=== PATIENT | female | born 1960 | race Caucasian/White ===

== ENCOUNTER → 2016-09-22 | Outpatient (CLI) | payer OTHER ==
[~2016-09-22] MED LIST: /ASCO250TA PO; /DULO30CA OR; /ESCI10TA; /ESOM40CA; ALPRTAB4 PO; ASPI81TA63; ASPI81TA83; ATARAX; AVIANE; AVIATAB; BIOT1CAP2 PO; BUSP5TA PO; CALCCHW12 PO; COLA100C PO; FERR324T2 PO; FIBE625T15 PO; FLEXERIL OR; GLIM2TAB PO; GLUC850T PO; HYDR-3719 PO; HYDROCODONE; HYDROCODONE PO; MAGN250T PO; METF500T PO; MIRA3350 PO; MULTTAB4 PO; NEUR100C; NUCY200T PO; NUCYNTA PO; RYZOLT; SENN8.6T76 PO; SOMA350T OR; THERGRAN PO; TIZA2TA PO; TIZA4CAP PO; TOPI25TA2; TRAM50TA2; TRAZ50TA; TRAZ50TA OR; TRAZADONE PO; VICO5TAB; VITA100T PO; VITA100T5 PO; VITA500T3 PO; VITAMIN D; VITAMIN D50000 UNT; VITAMIN D50000 UNT PO; VOLT1GEL2 TD; [UNRECOGNIZED DRUG - OTHER] PO
--- NOTE | 2016-10-12 02:12 | ECWPNPC ---
PATIENT NAME: ROBINA LESTER : 1960 GENDER: FEMALE VISIT DATE: 09/22/2016 DISCHARGE DATE: 09/22/16 1451 VISIT LOCKED DATE TIME: PHYSICIAN: ELVIA PADILLA RESOURCE: ELVIA PADILLA REASON FOR APPOINTMENT 1. BACK HISTORY OF PRESENT ILLNESS HISTORY OF PRESENT ILLNESS: PAIN THE PATIENT DESCRIBES THE PAIN... FALL RISK SCREENING: SCREENING :NO FALLS IN THE PAST YEAR TODAY'S VISIT: NOTES: RATES PAIN TODAY 3/10. HAS BEEN UNDER SIGNIFICANT STRESS. HAVING PAIN UNDER BUTTUCKS WHICH IS WORSE WHEN RISING TO A STANDING POSITION. CONTINUES TO HAVE PAIN FROM MID THORACIC REGION TO SACRUM. REPORTS PAIN MEDS ARE HELPFUL AND HAS ONLY CONSTIPATION AN ADVERSE FACTOR.. CURRENT MEDICATIONS TAKING METFORMIN HCL 500 MG TABLET 1 TABLET WITH MEALS ORALLY TWICE A DAY TAKING ALPRAZOLAM 0.5 MG TABLET 1 TABLET ORALLY BID TAKING DULOXETINE HCL 60 MG CAPSULE DELAYED RELEASE PARTICLES 1 CAPSULE ORALLY TWICE A DAY TAKING BUSPIRONE HCL 5 MG TABLET 1 TABLET ORALLY THREE TIMES A DAY TAKING FERROUS SULFATE 324 MG TABLET ORALLY ONCE A DAY TAKING TIZANIDINE HCL 4 MG TABLET 1 TAB(S) ORALLY TWICE A DAY TAKING METHOCARBAMOL 750 MG TABLET 1 TABLET ORALLY BID, NOTES: 1 TAKING TRAZODONE HCL 150 MG TABLET 1 TABLET AT BEDTIME NEEDED ORALLY ONCE A DAY TAKING LACTULOSE 20 GM PACKET 1 PACKET ORALLY ONCE A DAY, NOTES: NOT YET STARTED TAKING LACTULOSE ENCEPHALOPATHY 10 GM/15ML SOLUTION 15 ML ORALLY ONCE A DAY TAKING NORCO 10-325 MG TABLET 1 ORALLY Q4H PRN MDD6 TAKING NORCO 10-325 MG TABLET 1 TABLET ORALLY Q4-6H NEEDED MAX 6 DAILY TAKING GLIMEPIRIDE 2 MG TABLET 1 TABLET WITH BREAKFAST OR THE FIRST MAIN MEAL OF THE DAY ORALLY BID NOT-TAKING LINZESS 145 MCG CAPSULES 1 CAPSUL P.O. DAILY, NOTES: NOT YET STARTED NOT-TAKING MOVANTIK 25 MG TABLET 1 TABLET IN THE MORNING ORALLY ONCE A DAY NOT-TAKING DOCUSATE SODIUM 100 MG TABLET 1 TABLET NEEDED ORALLY ONCE A DAY MEDICATION LIST REVIEWED AND RECONCILED WITH THE PATIENT PAST MEDICAL HISTORY NIDDM DEPRESSION/ANXIETY CHRONIC PAIN KIDNEY STONE ALLERGIES LYRICA: SWELLING: ALLERGY DILAUDID: ITCH: ALLERGY OXYCODONE: ITCH: ALLERGY IV DYE: HIVES: ALLERGY SOCIAL HISTORY GENERAL: TOBACCO USE ARE YOU A:NONSMOKER LEARNING BARRIERS / SPECIAL NEEDS ORIENTED TO PLAN OF CARE: PATIENT, PAIN MANAGEMENT PATIENT, ORIENTED TO PLAN OF CARE: PATIENT, PAIN MANAGEMENT PATIENT. NEW PATIENT PAIN DIARY TODAY'S VISITNOTES FROM 0-10, WHAT LEVEL IS YOUR PAIN TODAY?0 PAIN CLINIC PFS, CLERGY, PUBLIC HEALTH REFERRALS PFS REFERRAL NEEDED?NO CLERGY REFERRAL NEEDED?NO PUBLIC HEALTH REFERRAL NEEDED?NO WAS THE PROVIDER NOTIFIED OF ANY PERTINENT INFO?NO PFS REFERRAL NEEDED?NO CLERGY REFERRAL NEEDED?NO PUBLIC HEALTH REFERRAL NEEDED?NO WAS THE PROVIDER NOTIFIED OF ANY PERTINENT INFO?NO REVIEW OF SYSTEMS CONSTITUTIONAL: ANY CHANGE IN YOUR MEDICAL CONDITION? NO . CHILLS NO . FEVER NO . INFECTION: DO YOU HAVE NEW INFECTIONS? NO . DO YOU HAVE HISTORY OF MRSA? NO . MUSCULOSKELETAL: ANY NEW PATTERNS OF PAIN OR NUMBNESS? NO . GASTROENTEROLOGY: ANY NEW CHANGE IN BOWEL CONTROL? NO . GENITOURINARY: ANY NEW CHANGE IN BLADDER CONTROL? NO . IS THERE A CHANCE YOU COULD BE ? NO . HEMATOLOGY/LYMPH: DO YOU TAKE ANY BLOOD THINNERS? (FOR EXAMPLE- COUMADIN, PLAVIX, AGGRENOX, PLATEL, PRADAXA, OR XARELTO) NO . WHEN WAS YOUR LAST DOSE? DATE: TIME: . NEUROLOGY: HAVE YOU FALLEN IN THE PAST 6 MONTHS? NO . ANY NEW EXTREMITY NUMBNESS OR WEAKNESS? NO . CARDIOLOGY: DO YOU HAVE A PACEMAKER OR DEFIBRILLATOR? NO . COLD EXTREMITIES CONTINUES TO HAVE COLDNESS AND BLUE COLOR TO THE TOES. NO SKIN BREAKDOWN OR ULCERATIONS TO FEET. . RESPIRATORY: HAVE YOU BEEN SICK IN THE PAST WEEK? YES PT REPORTS SHE HAS HAD A HEAD COLD THIS PAST WEEK, DENIES FEVER. REPORTS COUGH WHICH HAS NOW RESOLVED. . FEVER NO . FLU LIKE SYMPTOMS? NO . COUGH NO . INTEGUMENTARY: DO YOU HAVE ANY RASHES OR OPEN SORES? NO . ALLERGIC/IMMUNO: ARE YOU ALLERGIC TO SHELLFISH OR IV DYE? YES . ANY NEW ALLERGIES? NO . PSYCHIATRIC: DO YOU HAVE THOUGHTS OF HURTING YOURSELF OR SOMEONE ELSE? NO . ARE YOU ABUSED, NEGLECTED, OR IN AN UNSAFE ENVIRONMENT? NO . ENDOCRINOLOGY: ARE YOU DIABETIC? YES . OTHER: DO YOU NEED ANY PRESCRIPTIONS? NO . IF YES, PLEASE LIST: ____ . ANY NEW PROBLEMS WITH YOUR MEDICATIONS? NO . WHEN DID YOU LAST EAT? ____ . WHEN DID YOU LAST DRINK? ____ . WHAT DID YOU LAST DRINK? ____ . NAME OF PERSON DRIVING YOU HOME? ____ . DO YOU HAVE ANY OTHER QUESTIONS OR CONCERNS NO . PSYCHOLOGY: STRESSORS SIGNIFICANT GRIEF WITH RECENT OF MOTHER AND FAMILY STRESS. DECLINES OFFER OF COUNSELING SERVICES AND HOSPICE FOR GRIEF ISSUES. . REVIEWED BY: PROVIDER: ELVIA MONTES DE OCA . VITAL SIGNS WT 204 LBS, HT 65 IN, BMI 33.94 INDEX, BP 127/78 MM HG, HR 65 /MIN, RR 16 /MIN, TEMP 96.0 F, OXYGEN SAT % 94, SAFE IN ENV? (Y/N) YES, NA INITIALS TL 1407, REVIEWED BY: NEGRO. EXAMINATION GENERAL EXAMINATION: PSYCHALERT , ORIENTED X 3 , SAD, TEARFUL. LUNGS:CLEAR TO AUSCULTATION BILATERALLY. HEART:HEART RATE REGULAR. MUSCULOSKELETAL:TENDERNESS ELICITED WITH PALPATION OVER MID THORACIC MUSCLES WITH MILD:, RESTRICITON OF RESPIRATORY EXCURCIOM NOTED. TRIGGER POINTS:, , ELICITED WITH PALPATION OVER LUMBAR PARAVERTEBRAL MUSCLES AND INTO THE SACRUM. TENDERNESS WITH PALPATION OVER PIRIFORMIS MUSCLES. INCREASED PAIN WITH RISING TO STANDING POSITION. RESTRICTION OF ROM IN THIS AREA. SLOW TO RISE TO STANDING POSITION. THORACIC KYPHOSIS NOTED. NEUROLOGIC EXAM:DECREASED TOUCH SENSATION IN A STOCKING GLOVE DISTRIBUTION BILATERAL LOWER EXTREMITIES. 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 LOOK UP PIRIFORMIS SYNDROME. PROCEDURE CODES FA211 ESTABILISHED PATIENT [facility] CHARGE FOLLOW UP 6-7 WEEKS ELECTRONICALLY SIGNED BY AMOL ASTORGA ON 10/10/2016 AT 10:16 AM EST DISCLAIMER : THIS IS A VISIT SUMMARY EXTRACTED FROM THE [employer] CHART. IT IS NOT A COPY OF THE [employer] PROGRESS NOTE. DOUGLAS
== END ==
LOC: M PAIN 13:40
PROVIDERS: ATTEND Nurse Practitioner Family
DX: Z09 Encounter for follow-up examination after completed treatment for conditions other than malignant neoplasm (principal); G89.29 Other chronic pain; M54.6 Pain in thoracic spine; M96.1 Postlaminectomy syndrome, not elsewhere classified; G57.00 Lesion of sciatic nerve, unspecified lower limb; E11.9 Type 2 diabetes mellitus without complications; F32.9 Major depressive disorder, single episode, unspecified; F41.9 Anxiety disorder, unspecified; Z88.8 Allergy status to other drugs, medicaments and biological substances; Z88.5 Allergy status to narcotic agent; Z91.041 Radiographic dye allergy status; Z79.84 Long term (current) use of oral hypoglycemic drugs; Z79.891 Long term (current) use of opiate analgesic; Z79.899 Other long term (current) drug therapy

== ENCOUNTER → 2016-11-03 | Outpatient (CLI) | payer OTHER ==
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
== END ==
LOC: M PAIN 10:40
PROVIDERS: ATTEND Nurse Practitioner Family
DX: Z09 Encounter for follow-up examination after completed treatment for conditions other than malignant neoplasm (principal); G89.29 Other chronic pain; M54.6 Pain in thoracic spine; M96.1 Postlaminectomy syndrome, not elsewhere classified; G57.00 Lesion of sciatic nerve, unspecified lower limb; E11.9 Type 2 diabetes mellitus without complications; F32.9 Major depressive disorder, single episode, unspecified; F41.9 Anxiety disorder, unspecified; Z88.8 Allergy status to other drugs, medicaments and biological substances; Z88.5 Allergy status to narcotic agent; Z91.041 Radiographic dye allergy status; Z79.84 Long term (current) use of oral hypoglycemic drugs; Z79.891 Long term (current) use of opiate analgesic; Z79.899 Other long term (current) drug therapy

== ENCOUNTER → 2016-12-05 | Outpatient (CLI) | payer OTHER ==
[~2016-12-05] MED LIST changes: -COLA100C PO; +COLA100C3 PO
--- NOTE | 2016-12-13 00:20 | ECWPNPC ---
PATIENT NAME: ROBINA LESTER : 1960 GENDER: FEMALE VISIT DATE: 12/05/2016 DISCHARGE DATE: 12/05/16 1043 VISIT LOCKED DATE TIME: PHYSICIAN: ELVIA PADILLA RESOURCE: ELVIA PADILLA REASON FOR APPOINTMENT 1. BACK HISTORY OF PRESENT ILLNESS HISTORY OF PRESENT ILLNESS: PAIN THE PATIENT DESCRIBES THE PAIN... FALL RISK SCREENING: SCREENING :NO FALLS IN THE PAST YEAR TODAY'S VISIT: NOTES: RATES PAIN 3 /10. DESCRIBES IT CONSTANT AND ACHING. HAD RECENT FALL FROM CHAIR WITHOUT MAJOR INCREASE IN PAIN. REPORTS HAS BEEN ABLE TO GET OUTSIDE AND BE MORE ACTIVE. DENIES ADVERSE EFFECTS FROM MEDICATIONS EXCEPT CONSTIPATION. CURRENT MEDICATIONS TAKING METFORMIN HCL 500 MG TABLET 1 TABLET WITH MEALS ORALLY TWICE A DAY TAKING ALPRAZOLAM 1 MG TABLET 1 TABLET ORALLY BID TAKING DULOXETINE HCL 60 MG CAPSULE DELAYED RELEASE PARTICLES 1 CAPSULE ORALLY TWICE A DAY TAKING BUSPIRONE HCL 5 MG TABLET 1 TABLET ORALLY THREE TIMES A DAY TAKING GLIMEPIRIDE 2 MG TABLET 1 AND 1/2 TABLET ORALLY TWICE A DAY TAKING TIZANIDINE HCL 4 MG TABLET 1 TAB(S) ORALLY TWICE A DAY TAKING DULOXETINE HCL 30 MG CAPSULE DELAYED RELEASE PARTICLES 1 CAPSULE ORALLY DAILY TDD=90 MG TAKING METHOCARBAMOL 750 MG TABLET 1 TABLET ORALLY BID, NOTES: 1 TAKING NORCO 10-325 MG TABLET 1 ORALLY Q4H PRN MDD6 TAKING TRAZODONE HCL 150 MG TABLET 1 TABLET AT BEDTIME NEEDED ORALLY ONCE A DAY NOT-TAKING FERROUS SULFATE 324 MG TABLET ORALLY ONCE A DAY NOT-TAKING LACTULOSE 20 GM PACKET 1 PACKET ORALLY ONCE A DAY, NOTES: NOT YET STARTED NOT-TAKING LACTULOSE ENCEPHALOPATHY 10 GM/15ML SOLUTION 15 ML ORALLY ONCE A DAY NOT-TAKING NORCO 10-325 MG TABLET 1 TABLET ORALLY Q4-6H NEEDED MAX 6 DAILY NOT-TAKING LINZESS 145 MCG CAPSULES 1 CAPSUL P.O. DAILY, NOTES: NOT YET STARTED NOT-TAKING MOVANTIK 25 MG TABLET 1 TABLET IN THE MORNING ORALLY ONCE A DAY NOT-TAKING DOCUSATE SODIUM 100 MG TABLET 1 TABLET NEEDED ORALLY ONCE A DAY MEDICATION LIST REVIEWED AND RECONCILED WITH THE PATIENT PAST MEDICAL HISTORY NIDDM DEPRESSION/ANXIETY CHRONIC PAIN KIDNEY STONE ALLERGIES LYRICA: SWELLING: ALLERGY DILAUDID: ITCH: ALLERGY OXYCODONE: ITCH: ALLERGY IV DYE: HIVES: ALLERGY SOCIAL HISTORY GENERAL: PAIN CLINIC PFS, CLERGY, PUBLIC HEALTH REFERRALS CLERGY REFERRAL NEEDED?NO WAS THE PROVIDER NOTIFIED OF ANY PERTINENT INFO?NO PFS REFERRAL NEEDED?NO PUBLIC HEALTH REFERRAL NEEDED?NO PATIENT: ____. REVIEW OF SYSTEMS CONSTITUTIONAL: ANY CHANGE IN YOUR MEDICAL CONDITION? NO . CHILLS NO . FEVER NO . INFECTION: DO YOU HAVE NEW INFECTIONS? NO . DO YOU HAVE HISTORY OF MRSA? NO . MUSCULOSKELETAL: ANY NEW PATTERNS OF PAIN OR NUMBNESS? NO . GASTROENTEROLOGY: ANY NEW CHANGE IN BOWEL CONTROL? NO . GENITOURINARY: ANY NEW CHANGE IN BLADDER CONTROL? NO . IS THERE A CHANCE YOU COULD BE ? NO . HEMATOLOGY/LYMPH: DO YOU TAKE ANY BLOOD THINNERS? (FOR EXAMPLE- COUMADIN, PLAVIX, AGGRENOX, PLATEL, PRADAXA, OR XARELTO) NO . WHEN WAS YOUR LAST DOSE? DATE: TIME: . NEUROLOGY: HAVE YOU FALLEN IN THE PAST 6 MONTHS? NO . ANY NEW EXTREMITY NUMBNESS OR WEAKNESS? NO . CARDIOLOGY: DO YOU HAVE A PACEMAKER OR DEFIBRILLATOR? NO . RESPIRATORY: HAVE YOU BEEN SICK IN THE PAST WEEK? NO . FEVER NO . FLU LIKE SYMPTOMS? NO . COUGH NO . INTEGUMENTARY: DO YOU HAVE ANY RASHES OR OPEN SORES? NO . ALLERGIC/IMMUNO: ARE YOU ALLERGIC TO SHELLFISH OR IV DYE? YES . ANY NEW ALLERGIES? NO . PSYCHIATRIC: DO YOU HAVE THOUGHTS OF HURTING YOURSELF OR SOMEONE ELSE? NO . ARE YOU ABUSED, NEGLECTED, OR IN AN UNSAFE ENVIRONMENT? NO . ENDOCRINOLOGY: ARE YOU DIABETIC? YES . OTHER: DO YOU NEED ANY PRESCRIPTIONS? YES . IF YES, PLEASE LIST: HYDROCODONE . ANY NEW PROBLEMS WITH YOUR MEDICATIONS? NO . WHEN DID YOU LAST EAT? ____ . WHEN DID YOU LAST DRINK? ____ . WHAT DID YOU LAST DRINK? ____ . NAME OF PERSON DRIVING YOU HOME? ____ . DO YOU HAVE ANY OTHER QUESTIONS OR CONCERNS NO . REVIEWED BY: PROVIDER: ELVIA MONTES DE OCA . VITAL SIGNS WT 214 LBS, HT 65 IN, BMI 35.61 INDEX, BP 127/72 MM HG, HR 67 /MIN, RR 16 /MIN, TEMP 97.8 F, OXYGEN SAT % 96%, NA INITIALS AW 0958, REVIEWED BY: CS. EXAMINATION GENERAL EXAMINATION: PSYCHALERT , ORIENTED X 3 , SAD. LUNGS:CLEAR TO AUSCULTATION BILATERALLY. HEART:HEART RATE REGULAR. MUSCULOSKELETAL:TENDERNESS ELICITED WITH PALPATION OVER MID THORACIC MUSCLES WITH MILD:, RESTRICITON OF RESPIRATORY EXCURCIOM NOTED. TRIGGER POINTS:, , ELICITED WITH PALPATION OVER LUMBAR PARAVERTEBRAL MUSCLES AND INTO THE SACRUM. TENDERNESS WITH PALPATION OVER PIRIFORMIS MUSCLES. INCREASED PAIN WITH RISING TO STANDING POSITION. RESTRICTION OF ROM IN THIS AREA. SLOW TO RISE TO STANDING POSITION. THORACIC KYPHOSIS NOTED. NEUROLOGIC EXAM:DECREASED TOUCH SENSATION IN A STOCKING GLOVE DISTRIBUTION BILATERAL LOWER EXTREMITIES. 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 CLINICAL NOTES: ISTOP REGISTRY REVIEWED AND DEMNOSTRATES COMPLLIANCE. BRINGS IN MEDICATIONS WHICH IS APPROPRIATE FOR WHAT WAS DISPENSED. RECENT URINE TOXICOLOGY REVIEWED. NO UNAUTHORIZED MEDICATIONS. NO ILLICIT SUBSTANCES AND PRESCRIBED MEDICATIONS WERE PRESENT. PROCEDURE CODES FA211 ESTABILISHED PATIENT [facility] CHARGE DISPOSITION & COMMUNICATION FOLLOW UP 7 WEEKS ELECTRONICALLY SIGNED BY AMOL ASTORGA ON 12/12/2016 AT 08:48 AM EDT DISCLAIMER : THIS IS A VISIT SUMMARY EXTRACTED FROM THE [employer] CHART. IT IS NOT A COPY OF THE [email or web address] PROGRESS NOTE. REGINALDD
== END | disposition home or self-care (01) ==
LOC: M PAIN 10:00
PROVIDERS: ATTEND Nurse Practitioner Family
DX: G89.29 Other chronic pain (principal); M54.6 Pain in thoracic spine; M96.1 Postlaminectomy syndrome, not elsewhere classified; G57.00 Lesion of sciatic nerve, unspecified lower limb; E11.9 Type 2 diabetes mellitus without complications; F33.9 Major depressive disorder, recurrent, unspecified; F41.9 Anxiety disorder, unspecified; Z87.442 Personal history of urinary calculi; Z79.899 Other long term (current) drug therapy; Z79.84 Long term (current) use of oral hypoglycemic drugs; Z88.5 Allergy status to narcotic agent; Z88.8 Allergy status to other drugs, medicaments and biological substances; Z91.040 Latex allergy status

== ENCOUNTER → 2017-01-23 | Outpatient (CLI) | payer OTHER ==
--- NOTE | 2017-02-12 00:06 | ECWPNPC ---
PATIENT NAME: ROBNIA LESTER : 1960 GENDER: FEMALE VISIT DATE: 01/23/2017 DISCHARGE DATE: 01/23/17 1119 VISIT LOCKED DATE TIME: PHYSICIAN: ELVIA PADILLA RESOURCE: ELVIA PADILLA REASON FOR APPOINTMENT 1. BACK HISTORY OF PRESENT ILLNESS HISTORY OF PRESENT ILLNESS: PAIN THE PATIENT DESCRIBES THE PAIN... FALL RISK SCREENING: SCREENING :NO FALLS IN THE PAST YEAR TODAY'S VISIT: NOTES: NEW ONSET OF AIN IN LEFT BUTTUCK WITH RADIATION DOWN POSTERIOR LEFT LEG UNTIL LEVEL OF KNEE. NOTES HAS PAIN WITH WALKING INITIALLY. RATES PAIN TODAYAS 4/10. DESCRIBES PAIN CONSTANT AND ACHING. . CURRENT MEDICATIONS TAKING METFORMIN HCL 500 MG TABLET 1 TABLET WITH MEALS ORALLY TWICE A DAY TAKING ALPRAZOLAM 1 MG TABLET 1 TABLET ORALLY BID TAKING DULOXETINE HCL 60 MG CAPSULE DELAYED RELEASE PARTICLES 1 CAPSULE ORALLY TWICE A DAY TAKING BUSPIRONE HCL 5 MG TABLET 1 TABLET ORALLY THREE TIMES A DAY TAKING GLIMEPIRIDE 2 MG TABLET 1 TABLET WITH BREAKFAST OR THE FIRST MAIN MEAL OF THE DAY ORALLY DAILY TAKING TIZANIDINE HCL 4 MG TABLET 1 TAB(S) ORALLY TWICE A DAY TAKING DULOXETINE HCL 30 MG CAPSULE DELAYED RELEASE PARTICLES 1 CAPSULE ORALLY DAILY TDD=90 MG TAKING METHOCARBAMOL 750 MG TABLET 1 TABLET ORALLY BID TAKING TRAZODONE HCL 150 MG TABLET 1 TABLET AT BEDTIME NEEDED ORALLY ONCE A DAY TAKING NORCO 10-325 MG TABLET 1 ORALLY Q4H PRN MDD6 NOT-TAKING FERROUS SULFATE 324 MG TABLET ORALLY ONCE A DAY NOT-TAKING LACTULOSE 20 GM PACKET 1 PACKET ORALLY ONCE A DAY, NOTES: NOT YET STARTED NOT-TAKING LACTULOSE ENCEPHALOPATHY 10 GM/15ML SOLUTION 15 ML ORALLY ONCE A DAY NOT-TAKING NORCO 10-325 MG TABLET 1 TABLET ORALLY Q4-6H NEEDED MAX 6 DAILY NOT-TAKING LINZESS 145 MCG CAPSULES 1 CAPSUL P.O. DAILY, NOTES: NOT YET STARTED NOT-TAKING MOVANTIK 25 MG TABLET 1 TABLET IN THE MORNING ORALLY ONCE A DAY NOT-TAKING DOCUSATE SODIUM 100 MG TABLET 1 TABLET NEEDED ORALLY ONCE A DAY MEDICATION LIST REVIEWED AND RECONCILED WITH THE PATIENT PAST MEDICAL HISTORY NIDDM DEPRESSION/ANXIETY CHRONIC PAIN KIDNEY STONE ALLERGIES LYRICA: SWELLING: ALLERGY DILAUDID: ITCH: ALLERGY OXYCODONE: ITCH: ALLERGY IV DYE: HIVES: ALLERGY REVIEW OF SYSTEMS CONSTITUTIONAL: ANY CHANGE IN YOUR MEDICAL CONDITION? NO . CHILLS NO . FEVER NO . INFECTION: DO YOU HAVE NEW INFECTIONS? NO . DO YOU HAVE HISTORY OF MRSA? NO . MUSCULOSKELETAL: ANY NEW PATTERNS OF PAIN OR NUMBNESS? YES, PAIN LEFT LEG IS GETTING WORSE . GASTROENTEROLOGY: ANY NEW CHANGE IN BOWEL CONTROL? NO . GENITOURINARY: ANY NEW CHANGE IN BLADDER CONTROL? NO . IS THERE A CHANCE YOU COULD BE ? NO . HEMATOLOGY/LYMPH: DO YOU TAKE ANY BLOOD THINNERS? (FOR EXAMPLE- COUMADIN, PLAVIX, AGGRENOX, PLATEL, PRADAXA, OR XARELTO) NO . WHEN WAS YOUR LAST DOSE? DATE: TIME: . NEUROLOGY: HAVE YOU FALLEN IN THE PAST 6 MONTHS? NO . ANY NEW EXTREMITY NUMBNESS OR WEAKNESS? NO . CARDIOLOGY: DO YOU HAVE A PACEMAKER OR DEFIBRILLATOR? NO . RESPIRATORY: HAVE YOU BEEN SICK IN THE PAST WEEK? NO . FEVER NO . FLU LIKE SYMPTOMS? NO . COUGH NO . INTEGUMENTARY: DO YOU HAVE ANY RASHES OR OPEN SORES? NO . ALLERGIC/IMMUNO: ARE YOU ALLERGIC TO SHELLFISH OR IV DYE? YES, IV DYE . ANY NEW ALLERGIES? NO . PSYCHIATRIC: DO YOU HAVE THOUGHTS OF HURTING YOURSELF OR SOMEONE ELSE? NO . ARE YOU ABUSED, NEGLECTED, OR IN AN UNSAFE ENVIRONMENT? NO . ENDOCRINOLOGY: ARE YOU DIABETIC? YES . OTHER: DO YOU NEED ANY PRESCRIPTIONS? NO . IF YES, PLEASE LIST: ____ . ANY NEW PROBLEMS WITH YOUR MEDICATIONS? NO . WHEN DID YOU LAST EAT? ____ . WHEN DID YOU LAST DRINK? ____ . WHAT DID YOU LAST DRINK? ____ . NAME OF PERSON DRIVING YOU HOME? ____ . DO YOU HAVE ANY OTHER QUESTIONS OR CONCERNS NO . REVIEWED BY: PROVIDER: ELVIA MONTES DE OCA . VITAL SIGNS WT 216.8 LBS, HT 65 IN, BMI 36.07 INDEX, BP 128/83 MM HG, HR 77 /MIN, RR 16 /MIN, TEMP 96.7 F, OXYGEN SAT % 94%, NA INITIALS SC 10:43, REVIEWED BY: AD. EXAMINATION GENERAL EXAMINATION: PSYCHALERT , ORIENTED X 3 , APPROPRIATE MOOD AND AFFECT , GOOD EYE CONTACT. CHEST:THORACIC KYPHOSIS PRESENT. LUNGS:CLEAR TO AUSCULTATION BILATERALLY, DECREASED AIR ENTRY AT BASES. MUSCULOSKELETAL:POINT TENDERNESS OVER LEFT PIRIFORMIS AND TIGHT BANDS NOTED OVER POSTERIOR HAMSTRINGS AND ALONG ILIOTIBIAL BAND. BALANCE POOR. CONTINUES WITH STEPPING GAIT. 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 WALK DAILY. ICE TO PAINFUL AREA FOR 10 MINUTES TEICE A DAY. CONTINUE CURRENT MEDS. CALL WHEN SCRIPTS DUE. CLINICAL NOTES: REVIEWED WITH PATIENT THE POTENTIAL RISK OF INCREASED SEDATION, RESPIRATORY SUPPRESSION AND WITH THE COMBINATION OF BENZODIAZAPINE AND OPIOD MEDICATIONS. PATIENT STATES HE UNDERSTANDS THIS RISK AND WISHES TO CONTINUE WITH THERAPY. DISCUSSED OPTION OF INTERVENTIONAL TREATMENT FOR PIRIFORMIS PAIN. SHE IS HESITANT INJECTS HAVE NEVER BEEN HELPFUL IN THE PAST, BUT WILL CONSIDER THIS, ISTOP REGISTRY REVIEWED AND DEMNOSTRATES COMPLLIANCE. BRINGS IN MEDICATIONS WHICH IS APPROPRIATE FOR WHAT WAS DISPENSED. RECENT URINE TOXICOLOGY REVIEWED. NO UNAUTHORIZED MEDICATIONS. NO ILLICIT SUBSTANCES AND PRESCRIBED MEDICATIONS WERE PRESENT. PROCEDURE CODES [id number] ESTABILISHED PATIENT [facility] DISPOSITION & COMMUNICATION FOLLOW UP 7 WEEKS (REASON: PIRIFORMIS/BACK PAIN) ELECTRONICALLY SIGNED BY AMOL ASTORGA ON 02/11/2017 AT 02:11 PM EDT DISCLAIMER : THIS IS A VISIT SUMMARY EXTRACTED FROM THE [employer] CHART. IT IS NOT A COPY OF THE [employer] PROGRESS NOTE. DOUGLAS
== END | disposition home or self-care (01) ==
LOC: M PAIN 10:00
PROVIDERS: ATTEND Nurse Practitioner Family
DX: G89.29 Other chronic pain (principal); G57.02 Lesion of sciatic nerve, left lower limb; M54.6 Pain in thoracic spine; M96.1 Postlaminectomy syndrome, not elsewhere classified; E11.9 Type 2 diabetes mellitus without complications; F41.9 Anxiety disorder, unspecified; F33.9 Major depressive disorder, recurrent, unspecified; Z87.442 Personal history of urinary calculi; Z79.899 Other long term (current) drug therapy; Z79.84 Long term (current) use of oral hypoglycemic drugs; Z88.5 Allergy status to narcotic agent; Z88.8 Allergy status to other drugs, medicaments and biological substances; Z91.041 Radiographic dye allergy status

== ENCOUNTER → 2017-03-12 | Outpatient (CLI) | payer OTHER ==
[~2017-03-12] MED LIST changes: -COLA100C3 PO; +COLA100C5 PO; -METF500T PO; +METF500T13 PO
--- NOTE | 2017-04-02 00:29 | ECWPNPC ---
PATIENT NAME: ROBINA LESTER : 1960 GENDER: FEMALE VISIT DATE: 03/12/2017 DISCHARGE DATE: 03/12/17 1159 VISIT LOCKED DATE TIME: PHYSICIAN: ELVIA PADILLA RESOURCE: ELVIA PADILLA REASON FOR APPOINTMENT 1. PIRIFORMIS/BACK PAIN HISTORY OF PRESENT ILLNESS HISTORY OF PRESENT ILLNESS: PAIN THE PATIENT DESCRIBES THE PAIN... FALL RISK SCREENING: SCREENING :NO FALLS IN THE PAST YEAR TODAY'S VISIT: NOTES: RATES PAIN TODAY 3/10. DESCRIBES PAIN CONSTANT AND ACHING. LEFT LEG SOME IMPROVEMETNT WITH EXERCISES, HAS HARD TIME FIRST GETTING STARTED BUT IMPROVES WITH MOVEMENT. . CURRENT MEDICATIONS TAKING METFORMIN HCL 500 MG TABLET 1 TABLET WITH MEALS ORALLY THREE TIMES A DAY TAKING ALPRAZOLAM 1 MG TABLET 1 TABLET ORALLY BID TAKING DULOXETINE HCL 60 MG CAPSULE DELAYED RELEASE PARTICLES 1 CAPSULE ORALLY TWICE A DAY TAKING BUSPIRONE HCL 5 MG TABLET 1 TABLET ORALLY THREE TIMES A DAY TAKING TIZANIDINE HCL 4 MG TABLET 1 TAB(S) ORALLY TWICE A DAY TAKING DULOXETINE HCL 30 MG CAPSULE DELAYED RELEASE PARTICLES 1 CAPSULE ORALLY DAILY TDD=90 MG TAKING METHOCARBAMOL 750 MG TABLET 1 TABLET ORALLY BID TAKING TRAZODONE HCL 150 MG TABLET 1 TABLET AT BEDTIME NEEDED ORALLY ONCE A DAY TAKING NORCO 10-325 MG TABLET 1 ORALLY Q4H PRN MDD6 TAKING MULTIVITAMINS - TABLET 1 TABLET ORALLY ONCE A DAY TAKING MAGNESIUM 250 MG TABLET 1 TABLET WITH A MEAL ORALLY ONCE A DAY NOT-TAKING DOCUSATE SODIUM 100 MG TABLET 1 TABLET NEEDED ORALLY ONCE A DAY DISCONTINUED GLIMEPIRIDE 2 MG TABLET 1 TABLET WITH BREAKFAST OR THE FIRST MAIN MEAL OF THE DAY ORALLY DAILY DISCONTINUED FERROUS SULFATE 324 MG TABLET ORALLY ONCE A DAY DISCONTINUED LACTULOSE 20 GM PACKET 1 PACKET ORALLY ONCE A DAY, NOTES: NOT YET STARTED DISCONTINUED LACTULOSE ENCEPHALOPATHY 10 GM/15ML SOLUTION 15 ML ORALLY ONCE A DAY DISCONTINUED NORCO 10-325 MG TABLET 1 TABLET ORALLY Q4-6H NEEDED MAX 6 DAILY DISCONTINUED LINZESS 145 MCG CAPSULES 1 CAPSUL P.O. DAILY, NOTES: NOT YET STARTED DISCONTINUED MOVANTIK 25 MG TABLET 1 TABLET IN THE MORNING ORALLY ONCE A DAY MEDICATION LIST REVIEWED AND RECONCILED WITH THE PATIENT PAST MEDICAL HISTORY NIDDM DEPRESSION/ANXIETY CHRONIC PAIN KIDNEY STONE ALLERGIES LYRICA: SWELLING: ALLERGY DILAUDID: ITCH: ALLERGY OXYCODONE: ITCH: ALLERGY IV DYE: HIVES: ALLERGY REVIEW OF SYSTEMS REVIEWED BY: PROVIDER: ELVIA MONTES DE OCA . CONSTITUTIONAL: ANY CHANGE IN YOUR MEDICAL CONDITION? NO . CHILLS NO . FEVER NO . INFECTION: DO YOU HAVE NEW INFECTIONS? NO . DO YOU HAVE HISTORY OF MRSA? NO . MUSCULOSKELETAL: ANY NEW PATTERNS OF PAIN OR NUMBNESS? NO . GASTROENTEROLOGY: ANY NEW CHANGE IN BOWEL CONTROL? NO . GENITOURINARY: ANY NEW CHANGE IN BLADDER CONTROL? NO . IS THERE A CHANCE YOU COULD BE ? NO . HEMATOLOGY/LYMPH: DO YOU TAKE ANY BLOOD THINNERS? (FOR EXAMPLE- COUMADIN, PLAVIX, AGGRENOX, PLATEL, PRADAXA, OR XARELTO) NO . WHEN WAS YOUR LAST DOSE? DATE: TIME: . NEUROLOGY: HAVE YOU FALLEN IN THE PAST 6 MONTHS? NO . ANY NEW EXTREMITY NUMBNESS OR WEAKNESS? NO . CARDIOLOGY: DO YOU HAVE A PACEMAKER OR DEFIBRILLATOR? NO . RESPIRATORY: HAVE YOU BEEN SICK IN THE PAST WEEK? NO . FEVER NO . FLU LIKE SYMPTOMS? NO . COUGH NO . INTEGUMENTARY: DO YOU HAVE ANY RASHES OR OPEN SORES? NO . ALLERGIC/IMMUNO: ARE YOU ALLERGIC TO SHELLFISH OR IV DYE? YES, IV DYE . ANY NEW ALLERGIES? NO . PSYCHIATRIC: DO YOU HAVE THOUGHTS OF HURTING YOURSELF OR SOMEONE ELSE? NO . ARE YOU ABUSED, NEGLECTED, OR IN AN UNSAFE ENVIRONMENT? NO . ENDOCRINOLOGY: ARE YOU DIABETIC? YES . OTHER: DO YOU NEED ANY PRESCRIPTIONS? NOT SURE . IF YES, PLEASE LIST: ____ . ANY NEW PROBLEMS WITH YOUR MEDICATIONS? NO . WHEN DID YOU LAST EAT? ____ . WHEN DID YOU LAST DRINK? ____ . WHAT DID YOU LAST DRINK? ____ . NAME OF PERSON DRIVING YOU HOME? ____ . DO YOU HAVE ANY OTHER QUESTIONS OR CONCERNS NO . VITAL SIGNS WT 209. LBS, HT 65 IN, BMI 34.78 INDEX, BP 142/82 MM HG, HR 81 /MIN, RR 16 /MIN, TEMP 97.6 F, OXYGEN SAT % 99%, REVIEWED BY: CROW 1130. EXAMINATION GENERAL EXAMINATION: PSYCHALERT , ORIENTED X 3 , APPROPRIATE MOOD AND AFFECT , GOOD EYE CONTACT. CHEST:THORACIC KYPHOSIS PRESENT. LUNGS:CLEAR TO AUSCULTATION BILATERALLY, DECREASED AIR ENTRY AT BASES. MUSCULOSKELETAL:POINT TENDERNESS OVER LEFT PIRIFORMIS AND TIGHT BANDS NOTED OVER POSTERIOR HAMSTRINGS AND ALONG ILIOTIBIAL BAND. BALANCE POOR. CONTINUES WITH STEPPING GAIT. ASSESSMENTS PIRIFORMIS SYNDROME OF LEFT SIDE - G57.02 (PRIMARY) THORACIC BACK PAIN - M54.6 LUMBAR POST-LAMINECTOMY SYNDROME - M96.1 CHRONIC PRESCRIPTION OPIATE USE - Z79.899 TREATMENT PIRIFORMIS SYNDROME OF LEFT SIDE CLINICAL NOTES: CONTINUE EXERCISES AND STRETCHES. , ISTOP REGISTRY REVIEWED AND DEMNOSTRATES COMPLLIANCE. BRINGS IN MEDICATIONS WHICH IS APPROPRIATE FOR WHAT WAS DISPENSED. RECENT URINE TOXICOLOGY REVIEWED. NO UNAUTHORIZED MEDICATIONS. NO ILLICIT SUBSTANCES AND PRESCRIBED MEDICATIONS WERE PRESENT. PROCEDURE CODES FA211 ESTABILISHED PATIENT [facility] CHARGE DISPOSITION & COMMUNICATION FOLLOW UP 3 MONTHS (REASON: BACK PAIN) ELECTRONICALLY SIGNED BY AMOL ASTORGA ON 04/01/2017 AT 12:53 PM EDT DISCLAIMER : THIS IS A VISIT SUMMARY EXTRACTED FROM THE [employer] CHART. IT IS NOT A COPY OF THE [employer] PROGRESS NOTE. DOUGLAS
== END | disposition home or self-care (01) ==
LOC: M PAIN 10:20
PROVIDERS: ATTEND Nurse Practitioner Family
DX: G89.29 Other chronic pain (principal); G57.02 Lesion of sciatic nerve, left lower limb; M54.6 Pain in thoracic spine; M96.1 Postlaminectomy syndrome, not elsewhere classified; E11.9 Type 2 diabetes mellitus without complications; F41.9 Anxiety disorder, unspecified; F33.9 Major depressive disorder, recurrent, unspecified; Z87.442 Personal history of urinary calculi; Z79.899 Other long term (current) drug therapy; Z79.84 Long term (current) use of oral hypoglycemic drugs; Z88.5 Allergy status to narcotic agent; Z88.8 Allergy status to other drugs, medicaments and biological substances; Z91.041 Radiographic dye allergy status

== ENCOUNTER → 2017-06-05 | Outpatient (CLI) | payer OTHER ==
--- NOTE | 2017-06-28 01:47 | ECWPNPC ---
PATIENT NAME: ROBINA LESTER : 1960 GENDER: FEMALE VISIT DATE: 06/05/2017 DISCHARGE DATE: 06/05/17 1034 VISIT LOCKED DATE TIME: PHYSICIAN: ELVIA PADILLA RESOURCE: ELVIA PADILLA REASON FOR APPOINTMENT 1. BACK HISTORY OF PRESENT ILLNESS HISTORY OF PRESENT ILLNESS: PAIN THE PATIENT DESCRIBES THE PAIN... FALL RISK SCREENING: SCREENING :NO FALLS IN THE PAST YEAR TODAY'S VISIT: NOTES: RATES PAIN TODAY 11/03. HAS BEEN ABLE TO BE ACTIVE IN THE GARDEN. CONTINUES TO HAVE NUMBNESS IN BOTH FEET.. CURRENT MEDICATIONS UNKNOWN METFORMIN HCL 500 MG TABLET 1 TABLET WITH MEALS ORALLY THREE TIMES A DAY UNKNOWN ALPRAZOLAM 1 MG TABLET 1 TABLET ORALLY BID UNKNOWN DULOXETINE HCL 60 MG CAPSULE DELAYED RELEASE PARTICLES 1 CAPSULE ORALLY TWICE A DAY, NOTES: TOTAL OF 90MG UNKNOWN BUSPIRONE HCL 5 MG TABLET 1 TABLET ORALLY THREE TIMES A DAY UNKNOWN MULTIVITAMINS - TABLET 1 TABLET ORALLY ONCE A DAY UNKNOWN MAGNESIUM 250 MG TABLET 1 TABLET WITH A MEAL ORALLY ONCE A DAY UNKNOWN TIZANIDINE HCL 4 MG TABLET 1 TAB(S) ORALLY TWICE A DAY UNKNOWN DULOXETINE HCL 30 MG CAPSULE DELAYED RELEASE PARTICLES 1 CAPSULE ORALLY DAILY TDD=90 MG UNKNOWN METHOCARBAMOL 750 MG TABLET 1 TABLET ORALLY BID UNKNOWN NORCO 10-325 MG TABLET 1 ORALLY Q4H PRN MDD6 UNKNOWN TRAZODONE HCL 150 MG TABLET 1 TABLET AT BEDTIME NEEDED ORALLY ONCE A DAY UNKNOWN DOCUSATE SODIUM 100 MG TABLET 1 TABLET NEEDED ORALLY ONCE A DAY MEDICATION LIST REVIEWED AND RECONCILED WITH THE PATIENT PAST MEDICAL HISTORY NIDDM DEPRESSION/ANXIETY CHRONIC PAIN KIDNEY STONE ALLERGIES LYRICA: SWELLING: ALLERGY DILAUDID: ITCH: ALLERGY OXYCODONE: ITCH: ALLERGY IV DYE: HIVES: ALLERGY REVIEW OF SYSTEMS REVIEWED BY: PROVIDER: ELVIA MONTES DE OCA . CONSTITUTIONAL: ANY CHANGE IN YOUR MEDICAL CONDITION? NO . CHILLS NO . FEVER NO . INFECTION: DO YOU HAVE NEW INFECTIONS? NO . DO YOU HAVE HISTORY OF MRSA? NO . MUSCULOSKELETAL: ANY NEW PATTERNS OF PAIN OR NUMBNESS? NO . GASTROENTEROLOGY: ANY NEW CHANGE IN BOWEL CONTROL? STILL CONSTIPATED . GENITOURINARY: ANY NEW CHANGE IN BLADDER CONTROL? NO . IS THERE A CHANCE YOU COULD BE ? NO . HEMATOLOGY/LYMPH: DO YOU TAKE ANY BLOOD THINNERS? (FOR EXAMPLE- COUMADIN, PLAVIX, AGGRENOX, PLATEL, PRADAXA, OR XARELTO) NO . WHEN WAS YOUR LAST DOSE? DATE: TIME: . NEUROLOGY: HAVE YOU FALLEN IN THE PAST 6 MONTHS? NO . ANY NEW EXTREMITY NUMBNESS OR WEAKNESS? NO . CARDIOLOGY: DO YOU HAVE A PACEMAKER OR DEFIBRILLATOR? NO . RESPIRATORY: HAVE YOU BEEN SICK IN THE PAST WEEK? NO . FEVER NO . FLU LIKE SYMPTOMS? NO . COUGH NO . INTEGUMENTARY: DO YOU HAVE ANY RASHES OR OPEN SORES? NO . ALLERGIC/IMMUNO: ARE YOU ALLERGIC TO SHELLFISH OR IV DYE? YES . ANY NEW ALLERGIES? NO . PSYCHIATRIC: DO YOU HAVE THOUGHTS OF HURTING YOURSELF OR SOMEONE ELSE? NO . ARE YOU ABUSED, NEGLECTED, OR IN AN UNSAFE ENVIRONMENT? NO . ENDOCRINOLOGY: ARE YOU DIABETIC? YES . OTHER: DO YOU NEED ANY PRESCRIPTIONS? YES . IF YES, PLEASE LIST: HYDROCODONE . ANY NEW PROBLEMS WITH YOUR MEDICATIONS? NO . WHEN DID YOU LAST EAT? ____ . WHEN DID YOU LAST DRINK? ____ . WHAT DID YOU LAST DRINK? ____ . NAME OF PERSON DRIVING YOU HOME? ____ . DO YOU HAVE ANY OTHER QUESTIONS OR CONCERNS NO . VITAL SIGNS WT 211 LBS, HT 65 IN, BMI 35.11 INDEX, BP 121/82 MM HG, HR 76 /MIN, RR 16 /MIN, TEMP 97.4 F, OXYGEN SAT % 96%, NA INITIALS SC 10:14. EXAMINATION GENERAL EXAMINATION: PSYCHALERT , ORIENTED X 3 , APPROPRIATE MOOD AND AFFECT , GOOD EYE CONTACT. CHEST:THORACIC KYPHOSIS PRESENT. LUNGS:CLEAR TO AUSCULTATION BILATERALLY, DECREASED AIR ENTRY AT BASES. MUSCULOSKELETAL:POINT TENDERNESS OVER LEFT PIRIFORMIS AND TIGHT BANDS NOTED OVER POSTERIOR HAMSTRINGS AND ALONG ILIOTIBIAL BAND. BALANCE POOR. CONTINUES WITH STEPPING GAIT. 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 CLINICAL NOTES: ISTOP REGISTRY REVIEWED AND DEMNOSTRATES COMPLLIANCE. (REF # [id number]) BRINGS IN MEDICATIONS WHICH IS APPROPRIATE FOR WHAT WAS DISPENSED. RECENT URINE TOXICOLOGY REVIEWED. NO UNAUTHORIZED MEDICATIONS. NO ILLICIT SUBSTANCES AND PRESCRIBED MEDICATIONS WERE PRESENT. PROCEDURE CODES FA211 ESTABILISHED PATIENT [facility] CHARGE DISPOSITION & COMMUNICATION FOLLOW UP 3 MONTHS (REASON: BACK PAIN) ELECTRONICALLY SIGNED BY AMOL ASTORGA ON 06/27/2017 AT 08:22 AM EDT DISCLAIMER : THIS IS A VISIT SUMMARY EXTRACTED FROM THE [employer] CHART. IT IS NOT A COPY OF THE [employer] PROGRESS NOTE. DOUGLAS
== END ==
LOC: M PAIN 10:15
PROVIDERS: ATTEND Nurse Practitioner Family
DX: G89.29 Other chronic pain (principal); G57.02 Lesion of sciatic nerve, left lower limb; M54.6 Pain in thoracic spine; M96.1 Postlaminectomy syndrome, not elsewhere classified; E11.9 Type 2 diabetes mellitus without complications; F32.9 Major depressive disorder, single episode, unspecified; F41.9 Anxiety disorder, unspecified; Z88.5 Allergy status to narcotic agent; Z91.041 Radiographic dye allergy status; Z88.8 Allergy status to other drugs, medicaments and biological substances; Z79.84 Long term (current) use of oral hypoglycemic drugs; Z79.891 Long term (current) use of opiate analgesic; Z79.899 Other long term (current) drug therapy

== ENCOUNTER → 2017-09-05 | Outpatient (CLI) | payer OTHER | LOC: M PAIN 10:15 | DX: G57.02 Lesion of sciatic nerve, left lower limb (principal); M96.1 Postlaminectomy syndrome, not elsewhere classified; M54.6 Pain in thoracic spine; E11.9 Type 2 diabetes mellitus without complications; F41.9 Anxiety disorder, unspecified; F32.9 Major depressive disorder, single episode, unspecified; Z88.5 Allergy status to narcotic agent; Z88.8 Allergy status to other drugs, medicaments and biological substances; Z91.041 Radiographic dye allergy status; Z79.891 Long term (current) use of opiate analgesic; Z79.84 Long term (current) use of oral hypoglycemic drugs; Z79.899 Other long term (current) drug therapy | CPT/HCPCS: G0463 ==

== ENCOUNTER → 2017-11-30 | Outpatient (CLI) | payer OTHER | LOC: M PAIN 10:45 | DX: G57.02 Lesion of sciatic nerve, left lower limb (principal); M54.6 Pain in thoracic spine; M96.1 Postlaminectomy syndrome, not elsewhere classified; K59.09 Other constipation; E11.9 Type 2 diabetes mellitus without complications; F32.9 Major depressive disorder, single episode, unspecified; F41.9 Anxiety disorder, unspecified; Z79.84 Long term (current) use of oral hypoglycemic drugs; Z79.891 Long term (current) use of opiate analgesic; Z79.899 Other long term (current) drug therapy; Z88.5 Allergy status to narcotic agent; Z88.8 Allergy status to other drugs, medicaments and biological substances; Z91.041 Radiographic dye allergy status | CPT/HCPCS: G0463 ==

== ENCOUNTER → 2018-02-05 | Outpatient (CLI) | payer OTHER | LOC: M PAIN 10:30 | DX: M54.6 Pain in thoracic spine (principal); M96.1 Postlaminectomy syndrome, not elsewhere classified; K59.09 Other constipation; E11.9 Type 2 diabetes mellitus without complications; F32.9 Major depressive disorder, single episode, unspecified; F41.9 Anxiety disorder, unspecified; Z79.84 Long term (current) use of oral hypoglycemic drugs; Z79.891 Long term (current) use of opiate analgesic; Z79.899 Other long term (current) drug therapy; Z88.8 Allergy status to other drugs, medicaments and biological substances; Z91.041 Radiographic dye allergy status | CPT/HCPCS: G0463 ==

== ENCOUNTER → 2018-05-20 | Outpatient (CLI) | payer OTHER | LOC: M PAIN 10:45 | DX: M54.6 Pain in thoracic spine (principal); M96.1 Postlaminectomy syndrome, not elsewhere classified; E11.9 Type 2 diabetes mellitus without complications; F32.9 Major depressive disorder, single episode, unspecified; F41.9 Anxiety disorder, unspecified; Z79.84 Long term (current) use of oral hypoglycemic drugs; Z79.891 Long term (current) use of opiate analgesic; Z79.899 Other long term (current) drug therapy; Z88.8 Allergy status to other drugs, medicaments and biological substances; Z91.041 Radiographic dye allergy status; Z98.84 Bariatric surgery status | CPT/HCPCS: G0463 ==

== ENCOUNTER → 2018-09-16 | Outpatient (CLI) | payer OTHER ==
--- NOTE | 2018-09-27 01:46 | ECWPNPC ---
PATIENT NAME: ROBINA LESTER : 1960 GENDER: FEMALE VISIT DATE: 09/16/2018 DISCHARGE DATE: 09/16/18 1121 VISIT LOCKED DATE TIME: PHYSICIAN: BRIAN WOODS RESOURCE: BRIAN WOODS REASON FOR APPOINTMENT 1. SW PT,BACK MED MAN HISTORY OF PRESENT ILLNESS HISTORY OF PRESENT ILLNESS: HERE FOR ROUTINE F/U AND MEDICINE MANAGEMENT OF CHRONIC GENERALIZED BACK PAIN.HISTORY OF 3 BACK SURGERIES LAST ONE AROUND .REPORTED DECREASE IN RADICULAR PAIN SINCE SURGERY BUT HAS PERSISTENT LOW BACK SINCE.PAIN HAS BEEN AGGREVATED OVER THE PAST FEW MONTHS.RATING PAIN VAS 7/10. PAIN THE PATIENT DESCRIBES THE PAIN... FALL RISK SCREENING: SCREENING :NO FALLS IN THE PAST YEAR CURRENT MEDICATIONS TAKING PRAVASTATIN SODIUM 10 MG TABLET 1 TABLET ORALLY ONCE A DAY TAKING PREMARIN 0.625 MG TABLET 1 TABLET ORALLY DAILY TAKING METFORMIN HCL 500 MG TABLET 1 TABLET WITH MEALS ORALLY THREE TIMES A DAY TAKING DULOXETINE HCL 60 MG CAPSULE DELAYED RELEASE PARTICLES 1 CAPSULE ORALLY TWICE A DAY TAKING MULTIVITAMINS - TABLET 1 TABLET ORALLY ONCE A DAY TAKING TRAZODONE HCL 150 MG TABLET 2 TABLET AT BEDTIME NEEDED ORALLY ONCE A DAY TAKING TIZANIDINE HCL 4 MG TABLET 1 TAB(S) ORALLY TWICE A DAY TAKING METHOCARBAMOL 750 MG TABLET 1 TABLET ORALLY BID TAKING MOVANTIK 25 MG TABLET 1 TABLET IN THE MORNING ORALLY ONCE A DAY TAKING NORCO 10-325 MG TABLET 1 ORALLY Q4-6H PRN MDD5 - SLOW WEAN OF MED TAKING ALPRAZOLAM 1 MG TABLET 1 TABLET ORALLY BID, NOTES: 09-16-18 UNKNOWN CURCUMIN 95 500 MG CAPSULE ORALLY UNKNOWN CINNAMON 500 MG CAPSULE 2 CAPS ORALLY BID UNKNOWN DOCUSATE SODIUM 100 MG TABLET 1 TABLET NEEDED ORALLY ONCE A DAY MEDICATION LIST REVIEWED AND RECONCILED WITH THE PATIENT PAST MEDICAL HISTORY NIDDM DEPRESSION/ANXIETY CHRONIC PAIN KIDNEY STONE ALLERGIES LYRICA: SWELLING: ALLERGY DILAUDID: ITCH: ALLERGY OXYCODONE: ITCH: ALLERGY IV DYE: HIVES: ALLERGY SURGICAL HISTORY TONSILECTOMY CTR R/L ULNAR NERVE TRANSPOSITION 3 BACK SURGERY GASTRIC BYPASS REMOVAL OF EXCESS SKIN FROM ABDOMEN CHOLECYSTECTOMY HOSPITALIZATION/MAJOR DIAGNOSTIC PROCEDURE KIDNEY STONES PANCREATITIS SURGER REVIEW OF SYSTEMS REVIEWED BY: PROVIDER: BRIAN MONTES DE OCA . CONSTITUTIONAL: ANY CHANGE IN YOUR MEDICAL CONDITION? NO . CHILLS NO . FEVER NO . INFECTION: DO YOU HAVE NEW INFECTIONS? NO . DO YOU HAVE HISTORY OF MRSA? NO . MUSCULOSKELETAL: ANY NEW PATTERNS OF PAIN OR NUMBNESS? NO . GASTROENTEROLOGY: ANY NEW CHANGE IN BOWEL CONTROL? NO . GENITOURINARY: ANY NEW CHANGE IN BLADDER CONTROL? NO . IS THERE A CHANCE YOU COULD BE ? NO . HEMATOLOGY/LYMPH: DO YOU TAKE ANY BLOOD THINNERS? (FOR EXAMPLE- COUMADIN, PLAVIX, AGGRENOX, PLATEL, PRADAXA, OR XARELTO) NO . WHEN WAS YOUR LAST DOSE? DATE: TIME: . NEUROLOGY: HAVE YOU FALLEN IN THE PAST 12 MONTHS? NO . ANY NEW EXTREMITY NUMBNESS OR WEAKNESS? NO . CARDIOLOGY: DO YOU HAVE A PACEMAKER OR DEFIBRILLATOR? NO . RESPIRATORY: HAVE YOU BEEN SICK IN THE PAST WEEK? NO . FEVER NO . FLU LIKE SYMPTOMS? NO . COUGH NO . INTEGUMENTARY: DO YOU HAVE ANY RASHES OR OPEN SORES? NO . ALLERGIC/IMMUNO: ARE YOU ALLERGIC TO IV DYE? NO . ANY NEW ALLERGIES? NO . PSYCHIATRIC: DO YOU HAVE THOUGHTS OF HURTING YOURSELF OR SOMEONE ELSE? NO . ARE YOU ABUSED, NEGLECTED, OR IN AN UNSAFE ENVIRONMENT? NO . ENDOCRINOLOGY: ARE YOU DIABETIC? NO . OTHER: DO YOU NEED ANY PRESCRIPTIONS? MOVANTIK TIZANIDINE AND TRAZADONE . IF YES, PLEASE LIST: ____ . ANY NEW PROBLEMS WITH YOUR MEDICATIONS? NO . WHEN DID YOU LAST EAT? ____ . WHEN DID YOU LAST DRINK? ____ . WHAT DID YOU LAST DRINK? ____ . NAME OF PERSON DRIVING YOU HOME? ____ . DO YOU HAVE ANY OTHER QUESTIONS OR CONCERNS NO . VITAL SIGNS WT 205.6 LBS, HT 65 IN, BMI 34.21 INDEX, BP 136/78 MM HG, HR 76 /MIN, RR 16 /MIN, TEMP 97.0 F, OXYGEN SAT % 98%, NA INITIALS SC 10:31. EXAMINATION GENERAL EXAMINATION: PSYCHALERT , ORIENTED X 3 , APPROPRIATE MOOD AND AFFECT , GOOD EYE CONTACT. CHEST:THORACIC KYPHOSIS PRESENT. LUNGS:CLEAR TO AUSCULTATION BILATERALLY, DECREASED AIR ENTRY AT BASES. MUSCULOSKELETAL:POINT TENDERNESS OVER LEFT PIRIFORMIS AND TIGHT BANDS NOTED OVER POSTERIOR HAMSTRINGS AND ALONG ILIOTIBIAL BAND. BALANCE POOR. CONTINUES WITH STEPPING GAIT. ASSESSMENTS LUMBAR POST-LAMINECTOMY SYNDROME - M96.1 (PRIMARY) CHRONIC PRESCRIPTION OPIATE USE - Z79.899 TREATMENT LUMBAR POST-LAMINECTOMY SYNDROME REFILL TRAZODONE HCL TABLET, 150 MG, 2 TABLET AT BEDTIME NEEDED, ORALLY, ONCE A DAY, 30 DAY(S), 60 TABLET, REFILLS 5 REFILL TIZANIDINE HCL TABLET, 4 MG, 1 TAB(S), ORALLY, TWICE A DAY, 30 DAY(S), 60 TABLET, REFILLS 5 REFILL METHOCARBAMOL TABLET, 750 MG, 1 TABLET, ORALLY, BID, 30 DAYS, 60, REFILLS 5 REFILL MOVANTIK TABLET, 25 MG, 1 TABLET IN THE MORNING, ORALLY, ONCE A DAY, 30 DAY(S), 30, REFILLS 5 REFILL NORCO TABLET, 10-325 MG, 1, ORALLY, Q4-6H PRN MDD5 - SLOW WEAN OF MED, 30 DAY(S), 150, REFILLS 0 NOTES: ISTOP REGISTRY REVIEWED AND DEMONSTRATES COMPLLIANCE. (REF #[id number] ) BRINGS IN MEDICATIONS WHICH IS APPROPRIATE FOR WHAT WAS DISPENSED. RECENT URINE TOXICOLOGY REVIEWED. NO UNAUTHORIZED MEDICATIONS. NO ILLICIT SUBSTANCES AND PRESCRIBED MEDICATIONS WERE PRESENT. URINE TOX TODAY, RISKS AND BENEFITS OF NARCOTIC/OPIOD MEDICATIONS WERE REVIEWED WITH PATIENT - THIS INCLUDES BUT IS NOT LIMITED TO RISK OF DEPENDANCE/DEVELOPMENT OF ADDICTION, MOOD DISTURBANCE AND DEPRESSION, OSTEOPOROSIS, HORMONAL AND LABIDAL CHANGES, RESPIRATORY DEPRESSION AND . PATIENT IS ADVISED NOT TO DRIVE OR DRINK ALCOHOL WHILE ON THESE MEDICATIONS. PROCEDURE CODES FA211 ESTABILISHED PATIENT [facility] CHARGE DISPOSITION & COMMUNICATION FOLLOW UP 3 MONTHS ELECTRONICALLY SIGNED BY TAVON BOO ON 09/26/2018 AT 05:24 PM EST DISCLAIMER : THIS IS A VISIT SUMMARY EXTRACTED FROM THE [employer] CHART. IT IS NOT A COPY OF THE [employer] PROGRESS NOTE. MTDD
== END ==
LOC: M PAIN 10:00
PROVIDERS: ATTEND Nurse Practitioner Family
DX: M96.1 Postlaminectomy syndrome, not elsewhere classified (principal); E11.9 Type 2 diabetes mellitus without complications; F32.9 Major depressive disorder, single episode, unspecified; F41.9 Anxiety disorder, unspecified; Z79.84 Long term (current) use of oral hypoglycemic drugs; Z79.891 Long term (current) use of opiate analgesic; Z79.899 Other long term (current) drug therapy; Z88.5 Allergy status to narcotic agent; Z88.8 Allergy status to other drugs, medicaments and biological substances; Z91.041 Radiographic dye allergy status; Z98.84 Bariatric surgery status

== ENCOUNTER 2018-11-29 02:49 | Inpatient (IN) | payer OTHER ==
[~2018-11-29] VITALS: Ht 167.6 cm; Wt 97.4 kg
[~2018-11-29 02:49] MED LIST changes: -/DULO30CA OR; -/ESCI10TA; -/ESOM40CA; +CYMB1CAP5 OR; +LEXA1TAB; +NEXI1CAP3; -NUCY200T PO; +TAPE200T PO
[2018-11-29 04:30] VITALS: BP 146/92
[2018-11-29] MEDS ORDERED: ONDANSETRON 4MG/2ML VIAL (J2405) IV PRN (05:00)
[2018-11-29] MEDS ORDERED: MORPHINE 4 MG/ML 1ML VIAL/SYRINGE (J2270) IV PRN ×3 (05:00→11:45)
--- NOTE | 2018-11-29 05:05 | HPEPDOC ---
[facility] Medical History & Physical Date of Admission Nov 29, 2018 Other Provider Karmen Cavazos Attending Physician: CAROLINA REED MD History and Physical CHIEF COMPLAINT: Flank pain HISTORY OF PRESENT ILLNESS: Patient is a 58-year-old female with past medical history of multiple DM, nephrolithiasis, depression, and anxiety is transferred here from [facility] for management of nephrolithiasis and urological evaluation. Patient reported that she has been having lower abdominal pain for past several weeks that progressed to left flank pain intermittently. Pain is described as sharp currently localizing to the left flank 8 out of 10 in intensity with no other associated symptoms. She denies any fever or chills. Patient has had similar problems in the past with kidney stones. Found to have L. 5 mm stone with associated hydronephrosis on CT. PAST MEDICAL HISTORY: 1. Recurrent nephrolithiasis. 2. Anxiety. 3. Depression 4. Diabetes mellitus Type 2 PAST SURGICAL HISTORY: 1. Cholecystectomy 2. Carpal tunnel surgery b/l. 3. gastric bypass. 4. Tonsillectomy 5. Back surgeries x 3 SOCIAL HISTORY: Former smoker. Very minimal alcohol consumption, denies drug use. FAMILY HISTORY: DM in both parents Mother had CVA CAD in father ALLERGIES: Please see below. REVIEW OF SYSTEMS: 10 point review of system negative except as stated in HPI HOME MEDICATIONS: Please see below. PHYSICAL EXAMINATION: General: Mild distress, Alert Eyes: Normal sclera, EOMI, BUDDY HENT: Atraumatic, neck supple, moist mucous membranes Cardiovascular: Normal rate, normal rhythm. No murmurs appreciated. Pulmonary: Clear to auscultation b/l, no wheezing GI: Soft, severe tenderness to palpation of L. flank. No rebound tenderness. Skin: Warm and dry Neuro: CN grossly intact. No focal deficits. Strengths equal b/l. Psych: oriented x 3 LABORATORY DATA: See below. IMAGING: [facility]- Mild left hydronephrosis and hydroureter secondary to 5 mm distal ureteral stone. Additional nonobstructing bilateral renal stones are also noted. MICROBIOLOGY: Please see below. ASSESSMENT AND PLAN: 1. Nephrolithiasis - 5 mm w/ hydronephrosis and hydroureter, ongoing for several weeks. - IVF and pain management. - Urology consult. NPO at this time. - Obtain UA. 2. Anxiety and depression - Resume home medications once not NPO 3. DM - Hold home oral agents. - Accuchecks and ISS. Patient is high risk due to nephrolithiasis requiring IV analgesic and possible urologic intervention. Estimated length of stay 2-3 days with expected disposition to home. Home Medications Scheduled Alprazolam (Alprazolam Xr) Xr 0.5MG Tab, 2 MG PO DAILY Ascorbic Acid (Vit C) 250 Mg Tab, 500 MG PO DAILY Biotin (Vitamin H) (Biotin) 1 Mg Cap, 1 TAB PO BID Buspirone HCl (Buspirone HCl) 5 Mg Tab, 1 TAB PO TID Calcium Polycarbophil (Fiber) 625 Mg Tab, 625 MG PO BID Cyanocobalamin (Vitamin B-12) 500 Mcg Tab, 500 MCG PO DAILY Docusate Sodium (Colace) 100 Mg Cap, 100 MG PO BID Duloxetine Hcl (Cymbalta) 30 Mg Cap, 60 MG OR BID Ferrous Sulfate (Ferrous Sulfate) 324 Mg Tab, 324 MG PO BID Metformin Hydrochloride (Metformin HCl) 500 Mg Tab, 500 MG PO BID Multivitamins (Multivitamins) Tab, 1 TAB PO DAILY Polyethylene Glycol (Miralax) 1 Pow Pow, 1 DOSE PO ASDIRECTED Tizanidine Hydrochloride (Tizanidine Hcl) 4 Mg Cap, 4 MG PO QHS Trazodone Hcl (Trazodone Hcl) 50 Mg Tab, 50 MG OR QHS [it works] , 1 PO BIDWM Scheduled PRN Acetaminophen/Hydrocodone (Hydrocodone/Acetaminophen 10-325 mg) 1 Tab Tab, 1 TAB PO Q4HP PRN for PAIN Allergies Coded Allergies: Contrast Media (Verified Allergy, Intermediate, HIVES, 11/29/18) iodine (Verified Allergy, Intermediate, HIVES, 11/29/18) oxycodone (Verified Allergy, Intermediate, HIVES,ITCHING, 11/29/18) hydromorphone (Verified Allergy, Mild, ITCHING, 11/29/18) baclofen (Verified Allergy, Unknown, ITCHING, 11/29/18) pregabalin (Verified Adverse Reaction, Intermediate, FLUID RETENTION/SWELLING, 11/29/18) CAROLINA REED MD Nov 29, 2018 05:05
[2018-11-29] MEDS ORDERED: DEXTROSE 50% 50 ML SYRINGE IV PRN ×2 (05:15→23:00)
[2018-11-29] MEDS ORDERED: DULO1CAP3 PO (05:15)
[2018-11-29] MEDS ORDERED: TRAZ1TAB14 PO (05:15)
[2018-11-29] MEDS ORDERED: GLUCAGON FOR INJ 1 MG VIAL (J1610) SC PRN (05:15)
[2018-11-29] MEDS ORDERED: TIZA4TAB4 PO (05:15)
[2018-11-29] MEDS ORDERED: GLUCOSE 4 GM CHEW TABLET PO PRN (05:15)
[2018-11-29] MEDS ORDERED: METH75TA PO (05:16)
[2018-11-29] MEDS ORDERED: PRAV10TA3 PO (05:16)
[2018-11-29] MEDS ORDERED: XALA0.007 OU (05:16)
[2018-11-29] MEDS ORDERED: ALPR1TAB3 PO (05:16)
[2018-11-29] MEDS ORDERED: MOVA1TAB2 PO (05:16)
[2018-11-29] MEDS ORDERED: FLON1SPR (05:16)
[2018-11-29] MEDS ORDERED: JANU100T PO (05:16)
[2018-11-29] MEDS ORDERED: ESTR625TA PO (05:16)
[2018-11-29] MEDS: NS 1,000 ML IV SCH ×3 (05:51→16:56)
[2018-11-29] MEDS: HumaLOG INSULIN (NovoLOG) PER UNIT SC SCH ×3 (06:00→17:02)
[2018-11-29 06:19] LABS: HEMATOCRIT 35.5 % (36.0-47.0); HEMOGLOBIN 12.2 g/dl (12.0-15.5); MEAN CORPUSCULAR HEMOGLOBIN 31.2 pg (27.0-33.0); MEAN CORPUSCULAR HGB CONC 34.4 g/dl (32.0-36.5); MEAN CORPUSCULAR VOLUME 90.8 fl (80.0-96.0); PLATELET COUNT, AUTOMATED 233 10^3/uL (150-450); RED BLOOD COUNT 3.91 10^6/uL (4.00-5.40); WHITE BLOOD COUNT 10.4 10^3/uL (4.0-10.0)
[2018-11-29 06:47] LABS: CALCIUM LEVEL 8.2 MG/DL (8.5-10.1); CREATININE FOR GFR 1.04 MG/DL (0.55-1.30); GLOMERULAR FILTRATION RATE 58.1 (>51); POTASSIUM SERUM 4.2 MEQ/L (3.5-5.1)
[2018-11-29] MEDS ORDERED: HumaLOG INSULIN (NovoLOG) PER UNIT SC ONE (07:00)
--- NOTE | 2018-11-29 07:54 | CR ---
DATE OF CONSULTATION: 11/29/2018 REASON FOR CONSULTATION: Distal left ureteral calculus with refractory pain. Elif Plaza is a 58-year-old female with a history of stone disease who presented to an outside emergency room with a 2-week history of intermittent left lower quadrant pain. The pain was associated with occasional nausea, then no vomiting. She denied dysuria. She did describe some brown-stained urine early in the course but her urine has been clear every since. When the pain reached the point where she could not manage it at home, she presented to the emergency room where the CT scan was performed revealing the stone. She was transferred over to [facility] for further evaluation and treatment. Patient, as recently mentioned has a history of stone disease having undergone extracorporal shock wave lithotripsy (ESWL) in the past. Most recently, she spontaneously passed a stone roughly 1 year ago. At the present time, she denies any dysuria. She denies any urgency. Claimed to have a good stream senses good emptying of the bladder. Denies any urge or stress incontinence. PAST MEDICAL HISTORY: Significant for type 2 diabetes. Stone disease as previously mentioned. Anxiety Depression. PAST SURGICAL HISTORY: Cholecystectomy. Gastric bypass. Bilateral carpal tunnel. Tonsillectomy. Back surgeries. Stone surgeries as mentioned. SOCIAL HISTORY: She denies any tobacco use at the present time. MEDICATIONS ON ADMISSION: - alprazolam - buspirone - Cymbalta - metformin - Tizanidine - Trazodone ALLERGIES: She claims to be allergic to intravenous contrast. OXYCODONE, HYDROMORPHONE, BACLOFEN, PREGABALIN. PHYSICAL EXAMINATION: On physical examination, she is a fairly comfortable-appearing female lying in bed. Her abdomen is soft and nontender. There is some mild to moderate left lower quadrant tenderness. There are no palpable masses. No evidence of any rebound or guarding. Her flanks are nontender. LABORATORY STUDIES: Hematocrit 35.5, hemoglobin 3.9, white blood cell count 10.4. BUN and creatinine 11/1.0. CT scan as previously mentioned at the other hospital revealed a distal left stone measuring roughly 5 mm in size. ASSESSMENT: Distal left ureteral calculus with refractory pain of 2 weeks duration. PLAN: The plan is to take the patient to the operating room today for left ureteroscopy, laser lithotripsy and double J stent placement. I have discussed with the patient the options including continued conservative management versus surgical intervention. The patient is extremely eager to have something done as she has been miserable for quite some time. She is well versed in the surgical options as well as the discomfort that comes along with the stent as she has had them in the past.
[2018-11-29] MEDS: CIPROFLOXACIN 400 MG in APPROPRIATE DILUENT 1 EA IV SCH (08:08)
[2018-11-29 10:57] LABS: APPEARANCE, URINE CLEAR (CLEAR); BACTERIA, URINE AUTO NEGATIVE (NEGATIVE); BILIRUBIN, URINE AUTO NEGATIVE (NEGATIVE); BLOOD, URINE BLOOD 2+ (NEGATIVE); COLOR, URINE STRAW (YELLOW); GLUCOSE, URINE (UA) AUTO 2+ mg/dL (NEGATIVE); KETONE, URINE AUTO NEGATIVE (NEGATIVE); LEUKOCYTE ESTERASE, URINE AUTO NEGATIVE (NEGATIVE); MUCUS, URINE SMALL (NEGATIVE); NITRITE, URINE AUTO NEGATIVE (NEGATIVE); PROTEIN, URINE AUTO NEGATIVE (NEGATIVE); RBC, URINE AUTO 3 /HPF (0-3); SPECIFIC GRAVITY URINE AUTO 1.008 (1.002-1.035); SQUAMOUS EPITHELIAL CELL UR AU 1 /HPF (0-6); UROBILINOGEN, URINE AUTO 0.2 mg/dL (0.0-2.0); WBC, URINE AUTO 3 /HPF (0-3)
[2018-11-29] MEDS ORDERED: HYDROmorphone HCL 2 MG/ML 1ML VIAL (J1170) IV PRN (11:45)
--- NOTE | 2018-11-29 12:46 | IPNPDOC ---
Date Seen The patient was seen on 11/29/18. Progress Note SUBJECTIVE: Patient is a 58 yo female, admitted for obstructing ureteral stone and left flank pain. No complaint at this time. OBJECTIVE Physical exam Gen: NAD, obese HEENT: normocephalic, atraumatic, no discharge from ears or nose, no oropharyngeal erythema or exudate, neck is supple, no lymphadenopathy, trachea midline CVS: RRR, normal S1n S2, no murmur, rubs, or gallops, no edema, no jvd Resp: LCTAB, no rhonchi, wheezes or crackles Abd : soft, left flank tender, normal bowel sounds, no rebound tenderness or guarding MSK: no swelling, full range of motion, strength 5/5 Neuro: AOAx3, no confusion, no focal deficit Psych: normal mood and affect, good judgment LABORATORY DATA, IMAGING STUDIES, MICROBIOLOGY: Please see below- reviewed DVT prophylaxis ordered?: [yes] ASSESSMENT AND PLAN: 1. Nephrolithiasis - 5 mm w/ hydronephrosis and hydroureter, ongoing for several weeks. - IVF and pain management. - Urologist following-The plan is to take the patient to the operating room today for left ureteroscopy, laser lithotripsy and double J stent placement. The plan is to take the patient to the operating room today for left ureteroscopy, laser lithotripsy and double J stent placement. - NPO at this time. - Obtain UA 2. Anxiety and depression - Resume home medications 3. DM - Hold home oral agents. - Accuchecks and ISS. - hypoglycemic protocol DISPOSITION: pending lithotripsy VS, I&O, [facility] Vital Signs/I&O Vital Signs Date Time Temp Pulse Resp B/P (MAP) Pulse Ox O2 Delivery O2 Flow Rate FiO2 11/29/18 10:55 19 11/29/18 04:30 97.7 101 146/92 (110) 97 I&O- Last 24 Hours up to 6 AM 11/29/18 06:00 Intake Total 0 ml Balance 0 ml Laboratory Data 24H LABS Laboratory Tests 2 11/29/18 06:05: Nucleated Red Blood Cells % (auto) 0.0, Anion Gap 7L, Glomerular Filtration Rate 58.1, Blood Urea Nitrogen 11, Creatinine 1.04, Sodium Level 139, Potassium Level 4.2, Chloride Level 108H, Carbon Dioxide Level 24, Calcium Level 8.2L 11/29/18 06:25: Bedside Glucose (Misc Panel) 200H 11/29/18 10:36: Urine Appearance CLEAR, Urine Color STRAW, Urine pH 5.0, Urine Specific [place] 1.008, Urine Protein NEGATIVE, Urine Glucose (UA) 2+H, Urine Ketones NEGATIVE, Urine Urobilinogen 0.2, Urine Bilirubin NEGATIVE, Urine Leukocyte Esterase NEGATIVE, Urine Blood 2+H, Urine Nitrite NEGATIVE, Urine WBC (Auto) 3, Urine RBC (Auto) 3, Urine Hyaline Casts (Auto) 0, Urine Bacteria (Auto) NEGATIVE, Urine Squamous Epithelial Cells 1, Urine Mucus (Auto) SMALL, Urine Sperm (Auto) 11/29/18 11:53: Bedside Glucose (Misc Panel) 126H CBC/BMP Laboratory Tests 11/29/18 06:05 Red Blood Count 3.91 L, Mean Corpuscular Volume 90.8, Mean Corpuscular Hemoglobin 31.2, Mean Corpuscular Hemoglobin Concent 34.4, Red Cell Distribution Width 12.2, Calcium Level 8.2 L Microbiology Microbiology 11/29/18 Urine Culture, Received Pending CM FIELDS MD Nov 29, 2018 12:46
[2018-11-29] MEDS ORDERED: ALPRAZolam 0.5 MG TAB PO PRN ×2 (13:00→23:00)
[2018-11-29] MEDS: MORPHINE 4 MG/ML 1ML VIAL/SYRINGE (J2270) IV PRN ×2 (13:43→16:43)
[2018-11-29 14:00] VITALS: BP 136/84
[2018-11-29] MEDS ORDERED: CONRAY-60 60% 50ML VIAL (Q9961) As Ordered ONE (18:06)
[2018-11-29] MEDS ORDERED: LIDOCAINE 2% INJ 100 MG/5 ML SDV (FOR ANES.) As Ordered ONE (18:09)
[2018-11-29] MEDS ORDERED: MIDAZOLAM INJ 2 MG/2 ML VIAL (J2250) As Ordered ONE (18:09)
[2018-11-29] MEDS ORDERED: PROPOFOL 200 MG/20 ML VIAL As Ordered ONE (18:09)
[2018-11-29] MEDS ORDERED: fentaNYL 100 MCG/2 ML INJECTION (J3010) As Ordered ONE ×2 (18:10→19:03)
[2018-11-29] MEDS ORDERED: KETOROLAC 60 MG/2 ML VIAL (J1885) As Ordered ONE (18:51)
[2018-11-29] MEDS ORDERED: METOCLOPRAMIDE INJ 10MG/2ML VIAL (J2765) As Ordered ONE (18:51)
[2018-11-29] MEDS ORDERED: ONDANSETRON 4MG/2ML VIAL (J2405) As Ordered ONE (18:51)
[2018-11-29] MEDS ORDERED: LR 1,000 ML IV SCH (20:00)
[2018-11-29] MEDS ORDERED: NORCO, ANEXSIA 5/325MG TABLET (HYDROcodone/ACETAMINOPHEN) PO PRN (20:00)
[2018-11-29] MEDS ORDERED: fentaNYL 100 MCG/2 ML INJECTION (J3010) IV PRN (20:00)
[2018-11-29] MEDS ORDERED: HYDROMORPHONE HCL 0.5 MG/ 0.5 ML SYRINGE (J1170 PER 1) IV PRN (20:00)
[2018-11-29 21:00] VITALS: BP 149/75
[2018-11-29] MEDS ORDERED: PRAVASTATIN 10 MG TAB PO SCH (21:00)
[2018-11-29 21:30] VITALS: BP 136/80
--- NOTE | 2018-11-29 22:20 | RO ---
DATE OF PROCEDURE: 11/29/2018 PREPROCEDURE DIAGNOSIS: Distal left ureteral calculus with refractory pain. POSTPROCEDURE DIAGNOSIS: Impacted distal left ureteral calculus. PROCEDURE: Cystoscopy, left ureteroscopy with laser lithotripsy, double J stent placement. SURGEON: Joaquim Novak MD CVT TECH: ANESTHESIA: General via LMA. DESCRIPTION OF PROCEDURE: Patient was brought to the operating room, and placed on the operating room table in the supine position, after the induction of adequate anesthesia, the patient was placed in the dorsal lithotomy position and lower abdomen and genitalia were prepped and draped in the usual sterile manner. Cystopanendoscopy was performed using the rigid #21-Algerian cystoscope sheath with 30- and 70-degree lenses. The patient's bladder was free of any stones, clots or tumors. She did have a moderate cystocele. The ureteral orifices were normal in location and configuration. There was no efflux of urine from the left orifice. Clear efflux of urine from the right orifice was noted. A 0.038 wire was passed up the left orifice to the level of the renal pelvis. A moderate amount of resistance was met at the area just inside the ureteral orifice, but the wire was able to be passed with relative ease. Balloon dilatation of the rather narrow orifice was then carried out to 10 atmospheres of pressure. The rigid ureteroscope was then passed under direct vision up to the level of the stone, which was now located in the distal ureter. It was able to be nudged proximally just a bit into a slightly more dilated area where treatment with the laser was begun. Of note, the stone was somewhat spiculated. The laser fiber was deployed and fragmentation of the stone was carried out until the fragments were clearly small enough to pass. Once the stone was completely fragmented, the ureteroscope was removed under direct vision, and a 21-Algerian cystoscope sheath was backloaded over the wire. A 6-Algerian Walker stent was then passed into the renal pelvis without any difficulty. The wire was removed with the stent remaining in good position. The bladder was then decompressed with the cystoscope sheath and the procedure terminated. The patient tolerated the procedure well, was transported in stable condition to recovery.
[2018-11-29 22:30] VITALS: BP 145/71
[2018-11-29 23:30] VITALS: BP 138/72
[2018-11-30] MEDS: DULoxetine 30 MG CAP (CYMBALTA) PO SCH ×2 (00:14→09:05)
[2018-11-30] MEDS: CIPROFLOXACIN 400 MG in APPROPRIATE DILUENT 1 EA IV SCH ×2 (00:15→09:08)
[2018-11-30] MEDS: NS 1,000 ML IV SCH ×2 (00:15→09:07)
[2018-11-30] MEDS ORDERED: PHENAZOPYRIDINE 100 MG TAB PO PRN (00:15)
[2018-11-30 00:30] VITALS: BP 133/76
[2018-11-30 02:00] VITALS: BP 123/74
[2018-11-30 06:00] VITALS: BP 145/85
[2018-11-30 06:52] LABS: HEMATOCRIT 33.8 % (36.0-47.0); HEMOGLOBIN 11.4 g/dl (12.0-15.5); MEAN CORPUSCULAR HEMOGLOBIN 30.7 pg (27.0-33.0); MEAN CORPUSCULAR HGB CONC 33.7 g/dl (32.0-36.5); MEAN CORPUSCULAR VOLUME 91.1 fl (80.0-96.0); PLATELET COUNT, AUTOMATED 232 10^3/uL (150-450); RED BLOOD COUNT 3.71 10^6/uL (4.00-5.40); WHITE BLOOD COUNT 5.2 10^3/uL (4.0-10.0)
[2018-11-30 07:14] LABS: BLOOD UREA NITROGEN 8 MG/DL (7-18); CALCIUM LEVEL 7.8 MG/DL (8.5-10.1); CARBON DIOXIDE LEVEL 28 MEQ/L (21-32); CHLORIDE LEVEL 109 MEQ/L (98-107); CREATININE FOR GFR 0.79 MG/DL (0.55-1.30); GLOMERULAR FILTRATION RATE > 60.0 (>51); GLUCOSE, FASTING 181 MG/DL (70-100); MAGNESIUM LEVEL 1.5 MG/DL (1.8-2.4); POTASSIUM SERUM 3.9 MEQ/L (3.5-5.1); SODIUM LEVEL 142 MEQ/L (136-145)
[2018-11-30] MEDS ORDERED: HumaLOG INSULIN (NovoLOG) PER UNIT SC SCH ×2 (07:30→21:00)
[2018-11-30] MEDS ORDERED: ACETAMINOPHEN TAB 650MG DOSE (2X325MG) PO PRN (08:30)
[2018-11-30 08:50] VITALS: BP 130/88
--- NOTE | 2018-11-30 12:08 | DS.PDOC ---
Discharge Summary General Date of Admission Nov 29, 2018 at 04:25 Date of Discharge 11/30/18 Discharge Summary PROCEDURES PERFORMED DURING STAY: [Cystoscopy, left ureteroscopy with laser lithotripsy, double J stent placement. ADMITTING DIAGNOSES: 1. [obstructing kidney stone]. DISCHARGE DIAGNOSES: 1. [obstructing kidney stone]]. COMPLICATIONS/CHIEF COMPLAINT: Left Urter Calculus With Hydronephrosis. HISTORY OF PRESENT ILLNESS: [Patient is a 58-year-old female with past medical history of multiple DM, nephrolithiasis, depression, and anxiety is transferred here from [facility] for management of nephrolithiasis and urological evaluation. Patient reported that she has been having lower abdominal pain for past several weeks that progressed to left flank pain intermittently. Pain is described as sharp currently localizing to the left flank 8 out of 10 in intensity with no other associated symptoms. She denies any fever or chills. Patient has had similar problems in the past with kidney stones. Found to have L. 5 mm stone with associated hydronephrosis on CT. ]. HOSPITAL COURSE: [Patient was treated with prn pain and antiemetic medications. She underwent Cystoscopy, left ureteroscopy with laser lithotripsy, double J stent placement on 11/29/18. Patient is stable and denied any complaint at this time.]. DISCHARGE MEDICATIONS: Please see below. ALLERGIES: Please see below. PHYSICAL EXAMINATION ON DISCHARGE: VITAL SIGNS: Please see below. Physical exam Gen: NAD, obese HEENT: normocephalic, atraumatic, no discharge from ears or nose, no oropharyngeal erythema or exudate, neck is supple, no lymphadenopathy, trachea midline CVS: RRR, normal S1n S2, no murmur, rubs, or gallops, no edema, no jvd Resp: LCTAB, no rhonchi, wheezes or crackles Abd : soft, nontender, normal bowel sounds, no rebound tenderness or guarding MSK: no swelling, full range of motion, strength 5/5 Neuro: AOAx3, no confusion, no focal deficit Psych: normal mood and affect, good judgment LABORATORY DATA: Please see below. PROGNOSIS: [good] ACTIVITY: [As tolerated]. DIET: [consistent carbohydrate diet ] DISCHARGE PLAN: [f/u urologist and pcp in 1-2weeks. cipro and pyridium are being prescribed for use of 7 days. ] DISPOSITION: discharge home with no service DISCHARGE CONDITION: [Stable]. TIME SPENT ON DISCHARGE: Greater than [20] minutes. Vital Signs/I&Os Vital Signs Date Time Temp Pulse Resp B/P (MAP) Pulse Ox O2 Delivery O2 Flow Rate FiO2 11/30/18 08:50 98.4 64 16 130/88 (102) 97 I&O- Last 24 Hours up to 6 AM 11/30/18 06:00 Intake Total 4140 ml Output Total 3350 ml Balance 790 ml Laboratory Data Labs 24H Laboratory Tests 2 11/29/18 16:35: Bedside Glucose (Misc Panel) 123H 11/29/18 21:40: Bedside Glucose (Misc Panel) 112H 11/30/18 06:18: Nucleated Red Blood Cells % (auto) 0.0, Anion Gap 5L, Glomerular Filtration Rate > 60.0, Blood Urea Nitrogen 8, Creatinine 0.79, Sodium Level 142, Potassium Level 3.9, Chloride Level 109H, Carbon Dioxide Level 28, Calcium Level 7.8L, Magnesium Level 1.5L 11/30/18 11:31: Bedside Glucose (Misc Panel) 177H CBC/BMP Laboratory Tests 11/30/18 06:18 Red Blood Count 3.71 L, Mean Corpuscular Volume 91.1, Mean Corpuscular Hemoglobin 30.7, Mean Corpuscular Hemoglobin Concent 33.7, Red Cell Distribution Width 12.3, Calcium Level 7.8 L FSBS Laboratory Tests Test 11/29/18 16:35 11/29/18 21:40 11/30/18 11:31 Range/Units Bedside Glucose (Misc Panel) 123 112 177 70-105 MG/DL Microbiology Microbiology 11/29/18 Urine Culture - Final, Complete Discharge Medications Scheduled Conjugated Estrogens (Premarin) 0.625 Mg Tab, 0.625 MG PO DAILY, (Reported) Duloxetine Hcl (Duloxetine HCl) 60 Mg Cap, 60 MG PO BID, (Reported) Fluticasone Propionate (Flonase Allergy Relief) 50 Mcg/Act Spr, 1 SPRAY NA QHS, (Reported) Latanoprost (Xalatan) 0.005 % Luda, 1 DROP OU QHS, (Reported) Metformin Hydrochloride (Metformin HCl) 500 Mg Tab, 500 MG PO WM, (Reported) Naloxegol Oxalate (Movantik) 25 Mg Tab, 25 MG PO DAILY, (Reported) Pravastatin Sodium (Pravastatin Sodium) 10 Mg Tab, 10 MG PO DAILY, (Reported) Sitagliptin Phosphate (Januvia) 100 Mg Tab, 100 MG PO DAILY, (Reported) Tizanidine Hydrochloride (Tizanidine Hydrochloride) 4 Mg Tab, 4 MG PO BID, (Reported) Trazodone HCl (Trazodone HCl) 150 Mg Tab, 150 MG PO QHS, (Reported) Scheduled PRN Acetaminophen/Hydrocodone (Hydrocodone/Acetaminophen 10-325 mg) 1 Tab Tab, 1 TAB PO Q4HP PRN for PAIN, (Reported) Alprazolam (Alprazolam) 1 Mg Tab, 1 MG PO BID PRN for ANXIETY, (Reported) Methocarbamol (Methocarbamol) 750 Mg Tab, 750 MG PO BID PRN for MUSCLE SPASMS, (Reported) Allergies Coded Allergies: Contrast Media (Verified Allergy, Intermediate, HIVES, 11/29/18) iodine (Verified Allergy, Intermediate, HIVES, 11/29/18) oxycodone (Verified Allergy, Intermediate, HIVES,ITCHING, 11/29/18) hydromorphone (Verified Allergy, Mild, ITCHING, 11/29/18) baclofen (Verified Allergy, Unknown, ITCHING, 11/29/18) pregabalin (Verified Adverse Reaction, Intermediate, FLUID RETENTION/S WELLING, 11/29/18) CM FIELDS MD Nov 30, 2018 12:08
[2018-11-30] MEDS ORDERED: CIPR250T3 PO (12:23)
[2018-11-30] MEDS ORDERED: PHEN-501 PO (12:23)
[2018-11-30 14:00] VITALS: BP 135/85
== END 2018-11-30 13:20 | disposition home or self-care (01) | DRG 465 ==
LOC: M MS5PR 04:25
PROVIDERS: ADMIT Student in an Organized Health Care Education/Training Program; ATTEND Internal Medicine
PROC: 0T778DZ Dilation of Left Ureter with Intraluminal Device, Via Natural or Artificial Opening Endoscopic (ICD-10-PCS; 2018-11-29)
PROC: 0TF78ZZ Fragmentation in Left Ureter, Via Natural or Artificial Opening Endoscopic (ICD-10-PCS; principal; 2018-11-29 07:25)
DX: N13.2 Hydronephrosis with renal and ureteral calculous obstruction (principal); F32.9 Major depressive disorder, single episode, unspecified; F41.9 Anxiety disorder, unspecified; E11.9 Type 2 diabetes mellitus without complications; Z98.84 Bariatric surgery status; Z90.49 Acquired absence of other specified parts of digestive tract; Z87.891 Personal history of nicotine dependence; Z79.899 Other long term (current) drug therapy; Z91.041 Radiographic dye allergy status; Z88.8 Allergy status to other drugs, medicaments and biological substances; Z88.5 Allergy status to narcotic agent

== ENCOUNTER → 2018-12-16 | Outpatient (CLI) | payer OTHER ==
[~2018-12-16] MED LIST changes: +ALPR1TAB3 PO; +CIPR250T3 PO; +DULO1CAP3 PO; +ESTR625TA PO; +FLON1SPR; +JANU100T PO; +METH75TA PO; +MOVA1TAB2 PO; +PHEN-501 PO; +PRAV10TA3 PO; +TIZA4TAB4 PO; +TRAZ1TAB14 PO; +XALA0.007 OU
--- NOTE | 2019-01-03 01:28 | ECWPNPC ---
PATIENT NAME: ROBINA LESTER : 1960 GENDER: FEMALE VISIT DATE: 12/16/2018 DISCHARGE DATE: 12/16/18 1058 VISIT LOCKED DATE TIME: PHYSICIAN: BRIAN WOODS RESOURCE: BRIAN WOODS REASON FOR APPOINTMENT 1. BACK MED MAN HISTORY OF PRESENT ILLNESS HISTORY OF PRESENT ILLNESS: HERE FOR ROUTINE F/U AND MANAGEMENT OF CHRONIC BACK PAIN.OVER THE PAST 6 MONTHS SHE HAS BEEN HAVING AN INCREASE IN RIGHT THORACIC PAIN.RATING PAIN VAS 3-5/10.FINDS CURRENT PAIN MEDICATION EFFECTIVE AT REDUCING PAIN AND KEEPING HER COMFORTABLE.DENIES SIDE EFFECTS. PAIN THE PATIENT DESCRIBES THE PAIN... FALL RISK SCREENING: SCREENING :NO FALLS REPORTED IN THE LAST YEAR CURRENT MEDICATIONS TAKING TIZANIDINE HCL 4 MG TABLET 1 TAB(S) ORALLY TWICE A DAY TAKING METHOCARBAMOL 750 MG TABLET 1 TABLET ORALLY BID TAKING MOVANTIK 25 MG TABLET 1 TABLET IN THE MORNING ORALLY ONCE A DAY TAKING PRAVASTATIN SODIUM 10 MG TABLET 1 TABLET ORALLY ONCE A DAY TAKING PREMARIN 0.625 MG TABLET 1 TABLET ORALLY DAILY TAKING METFORMIN HCL 500 MG TABLET 1 TABLET WITH MEALS ORALLY THREE TIMES A DAY TAKING DULOXETINE HCL 60 MG CAPSULE DELAYED RELEASE PARTICLES 1 CAPSULE ORALLY TWICE A DAY TAKING ALPRAZOLAM 1 MG TABLET 1 TABLET ORALLY BID TAKING TRAZODONE HCL 150 MG TABLET 1 TABLET AT BEDTIME ORALLY ONCE A DAY TAKING NORCO 10-325 MG TABLET 1 ORALLY Q4-6H PRN MDD5 - SLOW WEAN OF MED NOT-TAKING MULTIVITAMINS - TABLET 1 TABLET ORALLY ONCE A DAY NOT-TAKING CURCUMIN 95 500 MG CAPSULE ORALLY NOT-TAKING CINNAMON 500 MG CAPSULE 2 CAPS ORALLY BID NOT-TAKING DOCUSATE SODIUM 100 MG TABLET 1 TABLET NEEDED ORALLY ONCE A DAY MEDICATION LIST REVIEWED AND RECONCILED WITH THE PATIENT PAST MEDICAL HISTORY NIDDM DEPRESSION/ANXIETY CHRONIC PAIN KIDNEY STONE ALLERGIES LYRICA: SWELLING - ALLERGY DILAUDID: ITCH - ALLERGY OXYCODONE: ITCH - ALLERGY IV DYE: HIVES - ALLERGY SURGICAL HISTORY TONSILECTOMY CTR R/L ULNAR NERVE TRANSPOSITION 3 BACK SURGERY GASTRIC BYPASS REMOVAL OF EXCESS SKIN FROM ABDOMEN CHOLECYSTECTOMY CYSTOSCOPY WITH LEFT STENT REMOVAL 11/2018 CYSTO, LEFT URETEROSCOPY WITH DAVIE LITHO, DOUBLE J STENT 11/2018 FAMILY HISTORY FATHER: MOTHER: 7 BROTHER(S) , 6 SISTER(S) . 1 BROTHER . SOCIAL HISTORY GENERAL: TOBACCO USE ARE YOU A:NONSMOKER LATEX QUESTIONNAIRE LATEX ALLERGY : HAVE YOU EVER DEVELOPED ANY TYPE OF REACTION AFTER HANDLING LATEX PRODUCTS SUCH RUBBER GLOVES, CONDOMS, DIAPHRAGMS, BALLOONS, SOCKS, OR UNDERWEAR?NO LATEX ALLERGY : HAVE YOU EVER DEVELOPED ANY TYPE OF REACTION DURING OR AFTER DENTAL APPOINTMENT, VAGINAL/RECTAL EXAMINATION, SURGICAL PROCEDURE, OR ANY OTHER EXPOSURE?NO LATEX RISK : HAVE YOU EVER HAD ANY DIFFICULTY BREATHING OR HIVES AFTER EATING OR HANDLING ANY FRUITS, OR VEGETABLES; SUCH KIWI, BANANAS, STONE FRUITS, OR CHESTNUTSNO LATEX RISK : DO YOU HAVE A PREVIOUS PERSONAL HISTORY OF MORE THAN NINE SURGERIES, SPINA BIFIDA, OR REPEATED CATHERTIZATIONS? NO LATEX RISK : ARE YOU FREQUENTLY EXPOSED TO LATEX PRODUCTS IN YOUR OCCUPATION?NO DATE ASKED : 12/12/2018 ALCOHOL SCREENING DID YOU HAVE A DRINK CONTAINING ALCOHOL IN THE PAST YEAR?YES HOW OFTEN DID YOU HAVE A DRINK CONTAINING ALCOHOL IN THE PAST YEAR?MONTHLY OR LESS (1 POINT) POINTS1 INTERPRETATIONNEGATIVE RECREATIONAL DRUG USE DRUG USE?NO CAFFEINE CAFFEINE USE?YES ICE TEA ALL DAY SEXUAL HX HAD SEX IN THE LAST 12 MONTHS (VAGINAL, ORAL, OR ANAL)?NO HAVE YOU EVER HAD AN STD?NO RESTORATIONIST [id number] HINDUISM LANGUAGE LANGUAGES SPOKEN:MALTESE OCCUPATION: DISABILITY. DIET: REGULAR. EXERCISE: DAILY. MARITAL STATUS: SINGLE. PAIN CLINIC PFS, CLERGY, PUBLIC HEALTH REFERRALS HAS THE PATIENT BEEN EDUCATED REGARDING HIS/HER PLAN OF CARE?YES HAS THE PATIENT BEEN EDUCATED REGARDING PAIN, THE RISK FOR PAIN, THE IMPORTANCE OF EFFECTIVE PAIN MANAGEMENT, AND THE PAIN ASSESSMENT PROCESS?YES ADVANCE DIRECTIVE ADVANCE DIRECTIVE DISCUSSED WITH PATIENT:YES DECLINED HCP INFORMATION, STATES SHE HAS THE INFORMATIO AT HOME. DECLINED ASSISTANCE IN FILLING OUT THE PAPERWORK. REVIEWED WITH PATIENT 12/16/18 1017 JS. HOSPITALIZATION/MAJOR DIAGNOSTIC PROCEDURE KIDNEY STONES PANCREATITIS SURGER REVIEW OF SYSTEMS REVIEWED BY: PROVIDER: BRIAN MONTES DE OCA . CONSTITUTIONAL: ANY CHANGE IN YOUR MEDICAL CONDITION? YES, KIDNEY STONE AT THE BEGINNING OF THIS MONTH, SURGERY DONE AT [facility] . CHILLS NO . FEVER NO . INFECTION: DO YOU HAVE NEW INFECTIONS? NO . DO YOU HAVE HISTORY OF MRSA? NO . MUSCULOSKELETAL: ANY NEW PATTERNS OF PAIN OR NUMBNESS? NO . GASTROENTEROLOGY: ANY NEW CHANGE IN BOWEL CONTROL? NO . GENITOURINARY: ANY NEW CHANGE IN BLADDER CONTROL? NO . IS THERE A CHANCE YOU COULD BE ? NO . HEMATOLOGY/LYMPH: DO YOU TAKE ANY BLOOD THINNERS? (FOR EXAMPLE- COUMADIN, PLAVIX, AGGRENOX, PLATEL, PRADAXA, OR XARELTO) NO . WHEN WAS YOUR LAST DOSE? DATE: TIME: . NEUROLOGY: HAVE YOU FALLEN IN THE PAST 12 MONTHS? NO . ANY NEW EXTREMITY NUMBNESS OR WEAKNESS? NO . CARDIOLOGY: DO YOU HAVE A PACEMAKER OR DEFIBRILLATOR? NO . RESPIRATORY: HAVE YOU BEEN SICK IN THE PAST WEEK? NO . FEVER NO . FLU LIKE SYMPTOMS? NO . COUGH NO . INTEGUMENTARY: DO YOU HAVE ANY RASHES OR OPEN SORES? NO . ALLERGIC/IMMUNO: ARE YOU ALLERGIC TO IV DYE? YES . ANY NEW ALLERGIES? NO . PSYCHIATRIC: DO YOU HAVE THOUGHTS OF HURTING YOURSELF OR SOMEONE ELSE? NO . ARE YOU ABUSED, NEGLECTED, OR IN AN UNSAFE ENVIRONMENT? NO . ENDOCRINOLOGY: ARE YOU DIABETIC? YES . OTHER: DO YOU NEED ANY PRESCRIPTIONS? NO . IF YES, PLEASE LIST: ____ . ANY NEW PROBLEMS WITH YOUR MEDICATIONS? NO . WHEN DID YOU LAST EAT? ____ . WHEN DID YOU LAST DRINK? ____ . WHAT DID YOU LAST DRINK? ____ . NAME OF PERSON DRIVING YOU HOME? ____ . DO YOU HAVE ANY OTHER QUESTIONS OR CONCERNS NO . VITAL SIGNS WT 199.6 LBS, HT 65 IN, BMI 33.21 INDEX, BP 123/80 MM HG, HR 77 /MIN, RR 18 /MIN, TEMP 97.2 F, OXYGEN SAT % 96%, SAFE IN ENV? (Y/N) YES, NA INITIALS AW 1015, REVIEWED BY: GLORIA. EXAMINATION GENERAL EXAMINATION: PSYCHALERT , ORIENTED X 3 , APPROPRIATE MOOD AND AFFECT , GOOD EYE CONTACT. CHEST:THORACIC KYPHOSIS PRESENT. LUNGS:CLEAR TO AUSCULTATION BILATERALLY, DECREASED AIR ENTRY AT BASES. MUSCULOSKELETAL:POINT TENDERNESS OVER LEFT PIRIFORMIS AND TIGHT BANDS NOTED OVER POSTERIOR HAMSTRINGS AND ALONG ILIOTIBIAL BAND. BALANCE POOR. CONTINUES WITH STEPPING GAIT. ASSESSMENTS LUMBAR POST-LAMINECTOMY SYNDROME - M96.1 (PRIMARY) TREATMENT LUMBAR POST-LAMINECTOMY SYNDROME CONTINUE TIZANIDINE HCL TABLET, 4 MG, 1 TAB(S), ORALLY, TWICE A DAY CONTINUE METHOCARBAMOL TABLET, 750 MG, 1 TABLET, ORALLY, BID CONTINUE MOVANTIK TABLET, 25 MG, 1 TABLET IN THE MORNING, ORALLY, ONCE A DAY CONTINUE NORCO TABLET, 10-325 MG, 1, ORALLY, Q4-6H PRN MDD5 - SLOW WEAN OF MED [facility] MRI SPINE,THORACIC WITHOUT [id number],HEATHER L 12/25/2018 3:22:00 PM > OLIMPIA TERRY 12/23/2018 5:06:30 PM > APPROVED FOR MRI THORACIC SPINE W/O CONTRAST ([id number]) 12/23/18-02/21/19 AUTH# [id number]. OKAY TO BOOK AT [facility] NOTES: ISTOP REGISTRY REVIEWED AND DEMONSTRATES COMPLLIANCE.BRINGS IN MEDICATIONS WHICH IS APPROPRIATE FOR WHAT WAS DISPENSED. RECENT URINE TOXICOLOGY REVIEWED. NO UNAUTHORIZED MEDICATIONS. NO ILLICIT SUBSTANCES AND PRESCRIBED MEDICATIONS WERE PRESENT. , RISKS AND BENEFITS OF NARCOTIC/OPIOD MEDICATIONS WERE REVIEWED WITH PATIENT - THIS INCLUDES BUT IS NOT LIMITED TO RISK OF DEPENDANCE/DEVELOPMENT OF ADDICTION, MOOD DISTURBANCE AND DEPRESSION, OSTEOPOROSIS, HORMONAL AND LABIDAL CHANGES, RESPIRATORY DEPRESSION AND . PATIENT IS ADVISED NOT TO DRIVE OR DRINK ALCOHOL WHILE ON THESE MEDICATIONS. PROCEDURE CODES FA211 ESTABILISHED PATIENT [facility] FACILITY CHARGE DISPOSITION & COMMUNICATION FOLLOW UP 4-6 WKS ELECTRONICALLY SIGNED BY TAVON BOO ON 12/31/2018 AT 10:23 AM EDT DISCLAIMER : THIS IS A VISIT SUMMARY EXTRACTED FROM THE [employer] CHART. IT IS NOT A COPY OF THE [employer] PROGRESS NOTE. DOUGLAS
== END ==
LOC: M PAIN 10:00
PROVIDERS: ATTEND Nurse Practitioner Family
DX: M96.1 Postlaminectomy syndrome, not elsewhere classified (principal); E11.9 Type 2 diabetes mellitus without complications; F32.9 Major depressive disorder, single episode, unspecified; F41.9 Anxiety disorder, unspecified; Z79.84 Long term (current) use of oral hypoglycemic drugs; Z79.891 Long term (current) use of opiate analgesic; Z79.899 Other long term (current) drug therapy; Z88.5 Allergy status to narcotic agent; Z88.8 Allergy status to other drugs, medicaments and biological substances; Z91.041 Radiographic dye allergy status; Z98.84 Bariatric surgery status

== ENCOUNTER → 2018-12-26 | Outpatient (REF) | payer OTHER | LOC: M SMT 17:04 | PROVIDERS: ATTEND Urology | DX: N20.0 Calculus of kidney (principal) ==

== ENCOUNTER → 2019-02-17 | Outpatient (CLI) | payer OTHER ==
--- NOTE | 2019-03-04 01:21 | ECWPNPC ---
PATIENT NAME: ROBINA LESTER : 1960 GENDER: FEMALE VISIT DATE: 02/17/2019 DISCHARGE DATE: 02/17/19 1240 VISIT LOCKED DATE TIME: PHYSICIAN: BRIAN WOODS RESOURCE: BRIAN WOODS REASON FOR APPOINTMENT 1. 4-6 WEEK, MRI REVIEW HISTORY OF PRESENT ILLNESS HISTORY OF PRESENT ILLNESS: HERE FOR F/U OF PERSISTENT MID THORACIC BACK PAIN.MRITHORACIC SPINE IS REVIEWED THAT I HAD ORDERED AT LAST VISIT.SHOWING PROMINENT SPUR COMPLEX T7/8 AND MULTI LEVEL DISC PROTRUSION.CONTINUES WITH SEVERE PAIN IN THIS REGION.PAIN IS AGGREVATED BY GARDENING AND SWEEPING AND VACCUMING.FINDS MEDICATION FOR CHRONIC PAIN SOMEWHAT HELPFUL.DISCUSSED TREATMENT OPTIONS. PAIN THE PATIENT DESCRIBES THE PAIN... FALL RISK SCREENING: SCREENING :NO FALLS REPORTED IN THE LAST YEAR CURRENT MEDICATIONS TAKING TIZANIDINE HCL 4 MG TABLET 1 TAB(S) ORALLY TWICE A DAY TAKING METHOCARBAMOL 750 MG TABLET 1 TABLET ORALLY BID TAKING MOVANTIK 25 MG TABLET 1 TABLET IN THE MORNING ORALLY ONCE A DAY TAKING PRAVASTATIN SODIUM 10 MG TABLET 1 TABLET ORALLY ONCE A DAY TAKING PREMARIN 0.625 MG TABLET 1 TABLET ORALLY DAILY TAKING METFORMIN HCL 500 MG TABLET 1 TABLET WITH MEALS ORALLY THREE TIMES A DAY TAKING DULOXETINE HCL 60 MG CAPSULE DELAYED RELEASE PARTICLES 1 CAPSULE ORALLY TWICE A DAY TAKING ALPRAZOLAM 1 MG TABLET 1 TABLET ORALLY BID TAKING TRAZODONE HCL 150 MG TABLET 1 TABLET AT BEDTIME ORALLY ONCE A DAY TAKING NORCO 10-325 MG TABLET 1 ORALLY Q4-6H PRN MDD5 - SLOW WEAN OF MED TAKING LATANOPROST 0.005 % SOLUTION 1 DROP INTO AFFECTED EYE IN THE EVENING OPHTHALMIC ONCE A DAY TAKING FLUTICASONE PROPIONATE HFA 44 MCG/ACT AEROSOL 1 PUFF INHALATION TWICE A DAY TAKING JANUVIA 100 MG TABLET 1 TABLET ORALLY ONCE A DAY NOT-TAKING MULTIVITAMINS - TABLET 1 TABLET ORALLY ONCE A DAY NOT-TAKING CURCUMIN 95 500 MG CAPSULE ORALLY NOT-TAKING CINNAMON 500 MG CAPSULE 2 CAPS ORALLY BID NOT-TAKING DOCUSATE SODIUM 100 MG TABLET 1 TABLET NEEDED ORALLY ONCE A DAY MEDICATION LIST REVIEWED AND RECONCILED WITH THE PATIENT PAST MEDICAL HISTORY NIDDM DEPRESSION/ANXIETY CHRONIC PAIN KIDNEY STONE ALLERGIES LYRICA: SWELLING - ALLERGY DILAUDID: ITCH - ALLERGY OXYCODONE: ITCH - ALLERGY IV DYE: HIVES - ALLERGY SURGICAL HISTORY TONSILECTOMY CTR R/L ULNAR NERVE TRANSPOSITION 3 BACK SURGERY GASTRIC BYPASS REMOVAL OF EXCESS SKIN FROM ABDOMEN CHOLECYSTECTOMY CYSTOSCOPY WITH LEFT STENT REMOVAL 11/2018 CYSTO, LEFT URETEROSCOPY WITH DAVIE LITHO, DOUBLE J STENT 11/2018 FAMILY HISTORY FATHER: MOTHER: 7 BROTHER(S) , 6 SISTER(S) . 1 BROTHER . SOCIAL HISTORY GENERAL: TOBACCO USE ARE YOU A:NONSMOKER DIET: REGULAR. LANGUAGE LANGUAGES SPOKEN:SLOVENIAN RECREATIONAL DRUG USE DRUG USE?NO EXERCISE: DAILY. LEARNING BARRIERS / SPECIAL NEEDS HEARING IMPAIRED?NO VISION IMPAIRED?YES :CORRECTIVE LENSES COGNITIVELY IMPAIRED?NO READINESS TO LEARN?YES PAIN CLINIC PFS, CLERGY, PUBLIC HEALTH REFERRALS HAS THE PATIENT BEEN EDUCATED REGARDING HIS/HER PLAN OF CARE?YES HAS THE PATIENT BEEN EDUCATED REGARDING PAIN, THE RISK FOR PAIN, THE IMPORTANCE OF EFFECTIVE PAIN MANAGEMENT, AND THE PAIN ASSESSMENT PROCESS?YES LATEX QUESTIONNAIRE LATEX ALLERGY : HAVE YOU EVER DEVELOPED ANY TYPE OF REACTION AFTER HANDLING LATEX PRODUCTS SUCH RUBBER GLOVES, CONDOMS, DIAPHRAGMS, BALLOONS, SOCKS, OR UNDERWEAR?NO LATEX ALLERGY : HAVE YOU EVER DEVELOPED ANY TYPE OF REACTION DURING OR AFTER DENTAL APPOINTMENT, VAGINAL/RECTAL EXAMINATION, SURGICAL PROCEDURE, OR ANY OTHER EXPOSURE?NO LATEX RISK : HAVE YOU EVER HAD ANY DIFFICULTY BREATHING OR HIVES AFTER EATING OR HANDLING ANY FRUITS, OR VEGETABLES; SUCH KIWI, BANANAS, STONE FRUITS, OR CHESTNUTSNO LATEX RISK : DO YOU HAVE A PREVIOUS PERSONAL HISTORY OF MORE THAN NINE SURGERIES, SPINA BIFIDA, OR REPEATED CATHERTIZATIONS? NO LATEX RISK : ARE YOU FREQUENTLY EXPOSED TO LATEX PRODUCTS IN YOUR OCCUPATION?NO DATE ASKED : 12/12/2018 CAFFEINE CAFFEINE USE?YES ICE TEA ALL DAY ADVANCE DIRECTIVE ADVANCE DIRECTIVE DISCUSSED WITH PATIENT:YES DECLINED HCP INFORMATION, STATES SHE HAS THE INFORMATIO AT HOME. DECLINED ASSISTANCE IN FILLING OUT THE PAPERWORK. 02/17/19 TAOISM [id number] MUSLIM MARITAL STATUS: SINGLE. ALCOHOL SCREENING DID YOU HAVE A DRINK CONTAINING ALCOHOL IN THE PAST YEAR?YES HOW OFTEN DID YOU HAVE A DRINK CONTAINING ALCOHOL IN THE PAST YEAR?MONTHLY OR LESS (1 POINT) POINTS1 INTERPRETATIONNEGATIVE OCCUPATION: DISABILITY. SEXUAL HX HAD SEX IN THE LAST 12 MONTHS (VAGINAL, ORAL, OR ANAL)?NO HAVE YOU EVER HAD AN STD?NO REVIEWED WITH PATIENT 12/16/18 1017 JSREVIEWED WITH PT 02/17/19 1146 BV. HOSPITALIZATION/MAJOR DIAGNOSTIC PROCEDURE KIDNEY STONES PANCREATITIS SURGER REVIEW OF SYSTEMS REVIEWED BY: PROVIDER: BRIAN MONTES DE OCA . CONSTITUTIONAL: ANY CHANGE IN YOUR MEDICAL CONDITION? NO . CHILLS NO . FEVER NO . INFECTION: DO YOU HAVE NEW INFECTIONS? NO . DO YOU HAVE HISTORY OF MRSA? NO . MUSCULOSKELETAL: ANY NEW PATTERNS OF PAIN OR NUMBNESS? NO . GASTROENTEROLOGY: ANY NEW CHANGE IN BOWEL CONTROL? NO . GENITOURINARY: ANY NEW CHANGE IN BLADDER CONTROL? NO . IS THERE A CHANCE YOU COULD BE ? NO . HEMATOLOGY/LYMPH: DO YOU TAKE ANY BLOOD THINNERS? (FOR EXAMPLE- COUMADIN, PLAVIX, AGGRENOX, PLATEL, PRADAXA, OR XARELTO) NO . WHEN WAS YOUR LAST DOSE? DATE: TIME: . NEUROLOGY: HAVE YOU FALLEN IN THE PAST 12 MONTHS? NO . ANY NEW EXTREMITY NUMBNESS OR WEAKNESS? NO . CARDIOLOGY: DO YOU HAVE A PACEMAKER OR DEFIBRILLATOR? NO . RESPIRATORY: HAVE YOU BEEN SICK IN THE PAST WEEK? NO . FEVER NO . FLU LIKE SYMPTOMS? NO . COUGH NO . INTEGUMENTARY: DO YOU HAVE ANY RASHES OR OPEN SORES? NO . ALLERGIC/IMMUNO: ARE YOU ALLERGIC TO IV DYE? NO . ANY NEW ALLERGIES? NO . PSYCHIATRIC: DO YOU HAVE THOUGHTS OF HURTING YOURSELF OR SOMEONE ELSE? NO . ARE YOU ABUSED, NEGLECTED, OR IN AN UNSAFE ENVIRONMENT? NO . ENDOCRINOLOGY: ARE YOU DIABETIC? NO . OTHER: DO YOU NEED ANY PRESCRIPTIONS? NO . IF YES, PLEASE LIST: ____ . ANY NEW PROBLEMS WITH YOUR MEDICATIONS? NO . WHEN DID YOU LAST EAT? ____ . WHEN DID YOU LAST DRINK? ____ . WHAT DID YOU LAST DRINK? ____ . NAME OF PERSON DRIVING YOU HOME? ____ . DO YOU HAVE ANY OTHER QUESTIONS OR CONCERNS NO . VITAL SIGNS WT 202.8 LBS, HT 65 IN, BMI 33.74 INDEX, BP 129/74 MM HG, HR 66 /MIN, RR 18 /MIN, TEMP 97.4 F, OXYGEN SAT % 99%, NA INITIALS SC 11:44. EXAMINATION GENERAL EXAMINATION: DEPRESSED AFFECT AWAKE,ALERT ,PLEAASANT . PSYCH AFFECT NORMAL . LUNGS: LUNG REBOLLEDO ARE CLEAR TO AUSCULTATION BILATERALLY. GOOD MOVEMENT OF AIR . HEART: S1, S2 IN A REGULAR RATE AND RHYTHM. NO SIGNIFICANT MURMURS, RUBS OR GALLOPS NOTED . THORACIC SPINE SPECIFIC POINT TENDERNESS OVER T7/8-T8/9 FACETS. DIAGNOSTIC TESTS REVIEWED MRI THORACIC-01/08/19. 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 RECENT URINE TOXICOLOGY REVIEWED. NO UNAUTHORIZED MEDICATIONS. NO ILLICIT SUBSTANCES AND PRESCRIBED MEDICATIONS WERE PRESENT. , REVIEWED WITH PATIENT THE POTENTIAL RISK OF INCREASED SEDATION, RESPIRATORY SUPPRESSION AND WITH THE COMBINATION OF BENZODIAZAPINE AND OPIOD MEDICATIONS. PATIENT STATES HE UNDERSTANDS THIS RISK AND WISHES TO CONTINUE WITH THERAPY, RISKS AND BENEFITS OF NARCOTIC/OPIOD MEDICATIONS WERE REVIEWED WITH PATIENT - THIS INCLUDES BUT IS NOT LIMITED TO RISK OF DEPENDANCE/DEVELOPMENT OF ADDICTION, MOOD DISTURBANCE AND DEPRESSION, OSTEOPOROSIS, HORMONAL AND LABIDAL CHANGES, RESPIRATORY DEPRESSION AND . PATIENT IS ADVISED NOT TO DRIVE OR DRINK ALCOHOL WHILE ON THESE MEDICATIONS. PREVENTIVE MEDICINE PAIN CLINIC TEACHING: PROCEDURE TEACHING PRE THORACIC FACET BLOCK PROCEDURE INSTRUCTIONS REVIEWED WITH PT. VERBALIZED UNDERSTANDING.. PROCEDURE CODES FA211 ESTABILISHED PATIENT [facility] CHARGE DISPOSITION & COMMUNICATION FOLLOW UP POST (REASON: T7/8-T8/9 BILAT.THERAPEUTIC FACET BLOCK) ELECTRONICALLY SIGNED BY TAVON BOO ON 03/03/2019 AT 04:17 PM EDT DISCLAIMER : THIS IS A VISIT SUMMARY EXTRACTED FROM THE [employer] CHART. IT IS NOT A COPY OF THE [employer] PROGRESS NOTE. MTDD
== END ==
LOC: M PAIN 11:30
PROVIDERS: ATTEND Nurse Practitioner Family
DX: M51.24 Other intervertebral disc displacement, thoracic region (principal); E11.9 Type 2 diabetes mellitus without complications; F32.9 Major depressive disorder, single episode, unspecified; F41.9 Anxiety disorder, unspecified; G89.29 Other chronic pain; Z87.442 Personal history of urinary calculi; Z98.84 Bariatric surgery status; Z90.49 Acquired absence of other specified parts of digestive tract; Z79.84 Long term (current) use of oral hypoglycemic drugs; Z79.891 Long term (current) use of opiate analgesic; Z79.899 Other long term (current) drug therapy; Z88.5 Allergy status to narcotic agent; Z88.8 Allergy status to other drugs, medicaments and biological substances; Z91.041 Radiographic dye allergy status; Z88.6 Allergy status to analgesic agent

== ENCOUNTER → 2019-04-29 | Outpatient (CLI) | payer OTHER ==
[~2019-04-29] MED LIST changes: +BUPIVACAINE HCL 0.25% 30 ML VIAL As Ordered ONE; -DULO1CAP3 PO; +DULO1CAP6 PO; +ISOVUE-M 300 61% 15ML VIAL (Q9967) As Ordered ONE; +LIDOCAINE 1% SDV INJ 30 ML VIAL As Ordered ONE; +METH750T2 PO; -METH75TA PO; +TRIAMCINOLONE ACETONIDE SUSP 40 MG/ML VIAL (J3301) As Ordered ONE; +diazePAM 5 MG TAB As Ordered ONE; +diphenhydrAMINE 25 MG CAP As Ordered ONE; +diphenhydrAMINE INJ 50MG/ML VIAL (J1200) As Ordered ONE
--- NOTE | 2019-04-29 13:06 | REP ---
Clinical: Status post procedure. Rule out pneumothorax. Technique: Inspiration, expiration, and lateral views of the chest. Findings: Mediastinum and cardiac silhouette are normal. Old healed right rib fractures are identified. No acute consolidation, effusion, or pneumothorax. Impression: No pneumothorax. No acute process. Electronically Signed by Sumit Epps MD 04/29/2019 12:58 P
--- NOTE | 2019-04-29 13:23 | REP ---
C-ARM VIEWS THORACIC SPINE: CLINICAL HISTORY: Pain. Two C-arm views of the thoracic spine performed during facet injection by Dr. Aguilar. Malone are seen bilaterally along the thoracic spine. 45 seconds of fluoroscopy time utilized. Electronically Signed by Mina Bermudez MD 04/29/2019 04:50 P
--- NOTE | 2019-05-11 23:24 | ECWPNPC ---
PATIENT NAME: ROBINA LESTER : 1960 GENDER: FEMALE VISIT DATE: 04/29/2019 DISCHARGE DATE: 04/29/19 1323 VISIT LOCKED DATE TIME: PHYSICIAN: MANSOOR DE LEON MD RESOURCE: MANSOOR DE LEON MD REASON FOR APPOINTMENT 1. BILAT THERAPEUTIC FACET BLOCK HISTORY OF PRESENT ILLNESS HISTORY OF PRESENT ILLNESS: PAIN THE PATIENT DESCRIBES THE PAIN... FALL RISK SCREENING: SCREENING :NO FALLS REPORTED IN THE LAST YEAR CURRENT MEDICATIONS TAKING PRAVASTATIN SODIUM 10 MG TABLET 1 TABLET ORALLY ONCE A DAY TAKING PREMARIN 0.625 MG TABLET 1 TABLET ORALLY DAILY TAKING METFORMIN HCL 500 MG TABLET 1 TABLET WITH MEALS ORALLY THREE TIMES A DAY, NOTES: LAST 04/28/192029 TAKING DULOXETINE HCL 60 MG CAPSULE DELAYED RELEASE PARTICLES 1 CAPSULE ORALLY TWICE A DAY TAKING ALPRAZOLAM 0.5 MG TABLET 1 TABLET ORALLY FOUR TIMES DAILY NEEDED TAKING LATANOPROST 0.005 % SOLUTION 1 DROP INTO AFFECTED EYE IN THE EVENING OPHTHALMIC ONCE A DAY TAKING FLUTICASONE PROPIONATE HFA 44 MCG/ACT AEROSOL 1 PUFF INHALATION TWICE A DAY TAKING JANUVIA 100 MG TABLET 1 TABLET ORALLY ONCE A DAY TAKING NORCO 10-325 MG TABLET 1 ORALLY Q4-6H PRN MDD5 - SLOW WEAN OF MED TAKING TIZANIDINE HCL 4 MG TABLET 1 TAB(S) ORALLY TWICE A DAY TAKING MOVANTIK 25 MG TABLET 1 TABLET IN THE MORNING ORALLY ONCE A DAY TAKING METHOCARBAMOL 750 MG TABLET 1 TABLET ORALLY BID TAKING TRAZODONE HCL 150 MG TABLET 1 TABLET AT BEDTIME ORALLY ONCE A DAY NOT-TAKING MULTIVITAMINS - TABLET 1 TABLET ORALLY ONCE A DAY NOT-TAKING CURCUMIN 95 500 MG CAPSULE ORALLY NOT-TAKING CINNAMON 500 MG CAPSULE 2 CAPS ORALLY BID NOT-TAKING DOCUSATE SODIUM 100 MG TABLET 1 TABLET NEEDED ORALLY ONCE A DAY MEDICATION LIST REVIEWED AND RECONCILED WITH THE PATIENT PAST MEDICAL HISTORY NIDDM DEPRESSION/ANXIETY CHRONIC PAIN KIDNEY STONE ALLERGIES LYRICA: SWELLING - ALLERGY DILAUDID: ITCH - ALLERGY OXYCODONE: ITCH - ALLERGY IV DYE: HIVES - ALLERGY SURGICAL HISTORY TONSILECTOMY CTR R/L ULNAR NERVE TRANSPOSITION 3 BACK SURGERY GASTRIC BYPASS REMOVAL OF EXCESS SKIN FROM ABDOMEN CHOLECYSTECTOMY CYSTOSCOPY WITH LEFT STENT REMOVAL 11/2018 CYSTO, LEFT URETEROSCOPY WITH DAVIE LITHO, DOUBLE J STENT 11/2018 FAMILY HISTORY FATHER: MOTHER: 7 BROTHER(S) , 6 SISTER(S) . 1 BROTHER . SOCIAL HISTORY GENERAL: TOBACCO USE ARE YOU A:NONSMOKER DIET: REGULAR. LANGUAGE LANGUAGES SPOKEN:MALAGASY RECREATIONAL DRUG USE DRUG USE?NO EXERCISE: DAILY. LEARNING BARRIERS / SPECIAL NEEDS HEARING IMPAIRED?NO VISION IMPAIRED?YES COGNITIVELY IMPAIRED?NO :CORRECTIVE LENSES READINESS TO LEARN?YES PAIN CLINIC PFS, CLERGY, PUBLIC HEALTH REFERRALS HAS THE PATIENT BEEN EDUCATED REGARDING HIS/HER PLAN OF CARE?YES HAS THE PATIENT BEEN EDUCATED REGARDING PAIN, THE RISK FOR PAIN, THE IMPORTANCE OF EFFECTIVE PAIN MANAGEMENT, AND THE PAIN ASSESSMENT PROCESS?YES LATEX QUESTIONNAIRE LATEX ALLERGY : HAVE YOU EVER DEVELOPED ANY TYPE OF REACTION AFTER HANDLING LATEX PRODUCTS SUCH RUBBER GLOVES, CONDOMS, DIAPHRAGMS, BALLOONS, SOCKS, OR UNDERWEAR?NO LATEX ALLERGY : HAVE YOU EVER DEVELOPED ANY TYPE OF REACTION DURING OR AFTER DENTAL APPOINTMENT, VAGINAL/RECTAL EXAMINATION, SURGICAL PROCEDURE, OR ANY OTHER EXPOSURE?NO DATE ASKED : 12/12/2018 LATEX RISK : HAVE YOU EVER HAD ANY DIFFICULTY BREATHING OR HIVES AFTER EATING OR HANDLING ANY FRUITS, OR VEGETABLES; SUCH KIWI, BANANAS, STONE FRUITS, OR CHESTNUTSNO LATEX RISK : DO YOU HAVE A PREVIOUS PERSONAL HISTORY OF MORE THAN NINE SURGERIES, SPINA BIFIDA, OR REPEATED CATHERIZATIONS? NO LATEX RISK : ARE YOU FREQUENTLY EXPOSED TO LATEX PRODUCTS IN YOUR OCCUPATION?NO CAFFEINE CAFFEINE USE?YES ICE TEA ALL DAY ADVANCE DIRECTIVE ADVANCE DIRECTIVE DISCUSSED WITH PATIENT:YES DECLINED HCP INFORMATION, STATES SHE HAS THE INFORMATIO AT HOME. DECLINED ASSISTANCE IN FILLING OUT THE PAPERWORK. 04/29/19 EPISCOPALIAN [id number] MORAVIAN MARITAL STATUS: SINGLE. ALCOHOL SCREENING DID YOU HAVE A DRINK CONTAINING ALCOHOL IN THE PAST YEAR?YES HOW OFTEN DID YOU HAVE A DRINK CONTAINING ALCOHOL IN THE PAST YEAR?MONTHLY OR LESS (1 POINT) POINTS1 INTERPRETATIONNEGATIVE OCCUPATION: DISABILITY. SEXUAL HX HAD SEX IN THE LAST 12 MONTHS (VAGINAL, ORAL, OR ANAL)?NO HAVE YOU EVER HAD AN STD?NO REVIEWED WITH PATIENT 12/16/18 1017 JSREVIEWED WITH PT 02/17/19 1146 BVREVIEWED WITH PT 04/29/19 1021 BV. HOSPITALIZATION/MAJOR DIAGNOSTIC PROCEDURE KIDNEY STONES PANCREATITIS SURGER REVIEW OF SYSTEMS REVIEWED BY: PROVIDER: . CONSTITUTIONAL: ANY CHANGE IN YOUR MEDICAL CONDITION? NO . CHILLS NO . FEVER NO . INFECTION: DO YOU HAVE NEW INFECTIONS? NO . DO YOU HAVE HISTORY OF MRSA? NO . MUSCULOSKELETAL: ANY NEW PATTERNS OF PAIN OR NUMBNESS? NO . GASTROENTEROLOGY: ANY NEW CHANGE IN BOWEL CONTROL? NO . GENITOURINARY: ANY NEW CHANGE IN BLADDER CONTROL? NO . IS THERE A CHANCE YOU COULD BE ? NO . HEMATOLOGY/LYMPH: DO YOU TAKE ANY BLOOD THINNERS? (FOR EXAMPLE- COUMADIN, PLAVIX, AGGRENOX, PLATEL, PRADAXA, OR XARELTO) NO . WHEN WAS YOUR LAST DOSE? DATE: TIME: . NEUROLOGY: HAVE YOU FALLEN IN THE PAST 12 MONTHS? PT STATES ALL PREVIOUS FALLS HAVE BEEN DOCUMENTED BY US. DENIES ANY FALLS SINCE LAST VISIT ON 02/17/19. . ANY NEW EXTREMITY NUMBNESS OR WEAKNESS? NO . CARDIOLOGY: DO YOU HAVE A PACEMAKER OR DEFIBRILLATOR? NO . RESPIRATORY: HAVE YOU BEEN SICK IN THE PAST WEEK? NO . FEVER NO . FLU LIKE SYMPTOMS? NO . COUGH NO . INTEGUMENTARY: DO YOU HAVE ANY RASHES OR OPEN SORES? NO . ALLERGIC/IMMUNO: ARE YOU ALLERGIC TO IV DYE? YES . ANY NEW ALLERGIES? NO . PSYCHIATRIC: DO YOU HAVE THOUGHTS OF HURTING YOURSELF OR SOMEONE ELSE? NO . ARE YOU ABUSED, NEGLECTED, OR IN AN UNSAFE ENVIRONMENT? NO . ENDOCRINOLOGY: ARE YOU DIABETIC? YES, PT TAKES METFORMIN. LAST DOSE TAKEN 04/28/19 2030 . OTHER: DO YOU NEED ANY PRESCRIPTIONS? NO . IF YES, PLEASE LIST: ____ . ANY NEW PROBLEMS WITH YOUR MEDICATIONS? NO . WHEN DID YOU LAST EAT? 04/28/191999 . WHEN DID YOU LAST DRINK? 04/29/19 0800 . WHAT DID YOU LAST DRINK? WATER . NAME OF PERSON DRIVING YOU HOME? ROBBIE KAY . DO YOU HAVE ANY OTHER QUESTIONS OR CONCERNS NO . VITAL SIGNS WT 192.8 LBS, HT 65 IN, BMI 32.08 INDEX, BP 120/77 MM HG, HR 82 /MIN, RR 18 /MIN, TEMP 96.0 F, OXYGEN SAT % 97%, NA INITIALS AW 0950, REVIEWED BY: BV. 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 MANSOOR D ELEON DIRECTOR ORACLE RETAIL NONE ANESTHESIA LOCAL PRE PROCEDURE NOTE THE PATIENT WITH HISTORY OF CHRONIC THORACIC PAIN. I EVALUATED THE PATIENT AND REVIEWED THE CHART. I WENT OVER THE RISKS, ALTERNATIVES, AND BENEFITS ASSOCIATED WITH THIS PROCEDURE. THE PATIENT WOULD LIKE TO PROCEED AND GAVE CONSENT TO PERFORM THE PROCEDURE. THE PATIENT DENIES UNEXPLAINABLE WEIGHT LOSS, FEVER, CHILLS, OR NEW CHANGES IN URINARY OR BOWEL CONTROL. DESCRIPTION OF PROCEDURE THE PATIENT WAS BROUGHT TO THE PROCEDURE ROOM AND PLACED IN THE PRONE POSITION. THE THORACIC AREA WAS CLEANED WITH CHLORAPREP SOLUTION AND DRAPED ASEPTICALLY. THE PROCEDURE WAS DONE UNDER STERILE CONDITIONS. I CHECKED LATERALITY AND THE LEVEL WHERE THE PROCEDURE WAS GOING TO BE PERFORMED WITH THE PATIENT AND THE SUPPORTING STAFF AT THE MOMENT OF THE TIME OUT IN THE PROCEDURE ROOM. UNDER FLUOROSCOPIC GUIDANCE, THE TARGET POINT WAS SELECTED AT THE RIGHT AND LEFT T5-T6 AND RIGHT AND LEFT T6-T7 THORACIC FACETS. TARGET POINT WAS SELECTED AFTER LATERAL ROTATION AND TILT OF THE MAGNIFIER OF THE C-ARM. LIDOCAINE 0.5% WAS USED TO NUMB THE SKIN AND THE SUBCUTANEOUS TISSUE BELOW IT. SPINAL NEEDLES, 22-GAUGE, WERE ADVANCED UNDER FLUOROSCOPIC GUIDANCE AND FOLLOWING PATIENT FEEDBACK UNTIL THE TARGETS WERE TOUCHED. THE POSITION OF THE NEEDLES WAS VERIFIED WITH MULTIPLE X-RAY VIEWS. AFTER PROPER POSITION OF THE NEEDLES WAS ACHIEVED, ISOVUE-M DYE 30% 0.1 ML WAS INJECTED SHOWING ADEQUATE SPREAD OF THE DYE. THEN A SOLUTION OF 0.9 ML OF BUPIVACAINE 0.125% OF KENALOG 10 MG WAS INJECTED AT EACH SITE. THERE WAS NO EVIDENCE OF BLOOD, PARESTHESIA OR CEREBROSPINAL FLUID DURING THE PROCEDURE. THE PATIENT WAS SENT TO THE RECOVERY ROOM. THE PATIENT WAS MOVING THE EXTREMITIES AND DOING WELL. THERE WAS NO COMPLICATION DURING THE PROCEDURE. FLUOROSCOPY TIME WAS 45 SECONDS POST PROCEDURE NOTE THE PATIENT WILL BE SEEN IN A FOLLOW UP IN THE NEXT FEW WEEKS. INSTRUCTIONS WERE GIVEN, QUESTIONS WERE ANSWERED, AND THE PATIENT EXPRESSED UNDERSTANDING AND AGREED WITH THE PLAN. I, DESTINEE ESTEBAN, DOCUMENTED THE ABOVE INFORMATION ACTING A SCRIBE FOR DR. DE LEON. I HAVE REVIEWED THE ABOVE DOCUMENT, WRITTEN BY DESTINEE ESTEBAN SCRIBShar AND I VERIFY THAT IT IS ACCURATE. DIAGNOSTIC IMAGING [facility] FACET BLOCK (PAIN)[id number] PROCEDURE CODES 89097 INJ PARAVERT F JNT C/T 1 LEV, MODIFIERS: 50 [id number] INJ PARAVERT F JNT C/T 2 LEV, MODIFIERS: 50 [id number] RADXPS IN END [id number] PXD DISPOSITION & COMMUNICATION FOLLOW UP 3 WEEKS ELECTRONICALLY SIGNED BY MANSOOR DE LEON MD, MD ON 05/11/2019 AT 12:26 PM EDT DISCLAIMER : THIS IS A VISIT SUMMARY EXTRACTED FROM THE [employer] CHART. IT IS NOT A COPY OF THE [employer] PROGRESS NOTE. MTDD
== END ==
LOC: M PAIN 10:00
PROVIDERS: ATTEND Anesthesiology
DX: M47.814 Spondylosis without myelopathy or radiculopathy, thoracic region (principal); E11.9 Type 2 diabetes mellitus without complications; F32.9 Major depressive disorder, single episode, unspecified; F41.9 Anxiety disorder, unspecified; G89.29 Other chronic pain; Z87.442 Personal history of urinary calculi; Z98.84 Bariatric surgery status; Z90.49 Acquired absence of other specified parts of digestive tract; Z79.84 Long term (current) use of oral hypoglycemic drugs; Z79.891 Long term (current) use of opiate analgesic; Z79.899 Other long term (current) drug therapy; Z88.5 Allergy status to narcotic agent; Z88.8 Allergy status to other drugs, medicaments and biological substances; Z91.041 Radiographic dye allergy status
CPT/HCPCS: 64490; 64491; 71046; J1200; J3301; Q9967

== ENCOUNTER → 2019-05-15 | Outpatient (CLI) | payer OTHER ==
[~2019-05-15] MED LIST changes: +B-122500 PO; -BUPIVACAINE HCL 0.25% 30 ML VIAL As Ordered ONE; +CINN500C15 PO; +IBUP80TA PO; -ISOVUE-M 300 61% 15ML VIAL (Q9967) As Ordered ONE; -LIDOCAINE 1% SDV INJ 30 ML VIAL As Ordered ONE; +MAGN250T7 PO; +PERCOCET PO; -TRIAMCINOLONE ACETONIDE SUSP 40 MG/ML VIAL (J3301) As Ordered ONE; +beet root PO; -diazePAM 5 MG TAB As Ordered ONE; -diphenhydrAMINE 25 MG CAP As Ordered ONE; -diphenhydrAMINE INJ 50MG/ML VIAL (J1200) As Ordered ONE; +tumeric PA
--- NOTE | 2019-05-17 00:28 | ECWPNPC ---
PATIENT NAME: ROBINA LESTER : 1960 GENDER: FEMALE VISIT DATE: 05/15/2019 DISCHARGE DATE: 05/15/19 1103 VISIT LOCKED DATE TIME: PHYSICIAN: AASHISH MANLEY RESOURCE: AASHISH MANLEY REASON FOR APPOINTMENT 1. POST FACET HISTORY OF PRESENT ILLNESS HISTORY OF PRESENT ILLNESS: PAIN THE PATIENT DESCRIBES THE PAIN... 59-YEAR-OLD FEMALE IN FOR BILATERAL THORACIC FACET BLOCK FOLLOW-UP. SHE RATES HER PAIN PREPROCEDURE AT A 7 OUT OF 10 AND POST PROCEDURE AT A 0-2 OUT OF 10. SHE FURTHER ADMITS THAT THE BLOCK CONTINUES TO WORK TODAY. SHE RATES HER PAIN CURRENTLY AT A 2 OUT OF 10 AND DESCRIBES IT ACHING AND TENDER. FALL RISK SCREENING: SCREENING :NO FALLS REPORTED IN THE LAST YEAR CURRENT MEDICATIONS TAKING PRAVASTATIN SODIUM 10 MG TABLET 1 TABLET ORALLY ONCE A DAY TAKING PREMARIN 0.625 MG TABLET 1 TABLET ORALLY DAILY TAKING METFORMIN HCL 500 MG TABLET 1 TABLET WITH MEALS ORALLY THREE TIMES A DAY TAKING DULOXETINE HCL 60 MG CAPSULE DELAYED RELEASE PARTICLES 1 CAPSULE ORALLY TWICE A DAY TAKING ALPRAZOLAM 0.5 MG TABLET 1 TABLET ORALLY FOUR TIMES DAILY NEEDED TAKING LATANOPROST 0.005 % SOLUTION 1 DROP INTO AFFECTED EYE IN THE EVENING OPHTHALMIC ONCE A DAY TAKING FLUTICASONE PROPIONATE HFA 44 MCG/ACT AEROSOL 1 PUFF INHALATION TWICE A DAY TAKING JANUVIA 100 MG TABLET 1 TABLET ORALLY ONCE A DAY TAKING TIZANIDINE HCL 4 MG TABLET 1 TAB(S) ORALLY TWICE A DAY TAKING MOVANTIK 25 MG TABLET 1 TABLET IN THE MORNING ORALLY ONCE A DAY TAKING METHOCARBAMOL 750 MG TABLET 1 TABLET ORALLY BID TAKING TRAZODONE HCL 150 MG TABLET 1 TABLET AT BEDTIME ORALLY ONCE A DAY TAKING NORCO 10-325 MG TABLET 1 ORALLY Q4-6H PRN MDD5 - SLOW WEAN OF MED NOT-TAKING MULTIVITAMINS - TABLET 1 TABLET ORALLY ONCE A DAY NOT-TAKING CURCUMIN 95 500 MG CAPSULE ORALLY NOT-TAKING CINNAMON 500 MG CAPSULE 2 CAPS ORALLY BID NOT-TAKING DOCUSATE SODIUM 100 MG TABLET 1 TABLET NEEDED ORALLY ONCE A DAY MEDICATION LIST REVIEWED AND RECONCILED WITH THE PATIENT PAST MEDICAL HISTORY NIDDM DEPRESSION/ANXIETY CHRONIC PAIN KIDNEY STONE ALLERGIES LYRICA: SWELLING - ALLERGY DILAUDID: ITCH - ALLERGY OXYCODONE: ITCH - ALLERGY IV DYE: HIVES - ALLERGY SURGICAL HISTORY TONSILECTOMY CTR R/L ULNAR NERVE TRANSPOSITION 3 BACK SURGERY GASTRIC BYPASS REMOVAL OF EXCESS SKIN FROM ABDOMEN CHOLECYSTECTOMY CYSTOSCOPY WITH LEFT STENT REMOVAL 11/2018 CYSTO, LEFT URETEROSCOPY WITH DAVIE LITHO, DOUBLE J STENT 11/2018 FAMILY HISTORY FATHER: MOTHER: 7 BROTHER(S) , 6 SISTER(S) . 1 BROTHER . SOCIAL HISTORY GENERAL: TOBACCO USE ARE YOU A:NONSMOKER DIET: REGULAR. LANGUAGE LANGUAGES SPOKEN:BELARUSIAN RECREATIONAL DRUG USE DRUG USE?NO EXERCISE: DAILY. LEARNING BARRIERS / SPECIAL NEEDS HEARING IMPAIRED?NO VISION IMPAIRED?YES COGNITIVELY IMPAIRED?NO :CORRECTIVE LENSES READINESS TO LEARN?YES PAIN CLINIC PFS, CLERGY, PUBLIC HEALTH REFERRALS HAS THE PATIENT BEEN EDUCATED REGARDING HIS/HER PLAN OF CARE?YES HAS THE PATIENT BEEN EDUCATED REGARDING PAIN, THE RISK FOR PAIN, THE IMPORTANCE OF EFFECTIVE PAIN MANAGEMENT, AND THE PAIN ASSESSMENT PROCESS?YES LATEX QUESTIONNAIRE LATEX ALLERGY : HAVE YOU EVER DEVELOPED ANY TYPE OF REACTION AFTER HANDLING LATEX PRODUCTS SUCH RUBBER GLOVES, CONDOMS, DIAPHRAGMS, BALLOONS, SOCKS, OR UNDERWEAR?NO LATEX ALLERGY : HAVE YOU EVER DEVELOPED ANY TYPE OF REACTION DURING OR AFTER DENTAL APPOINTMENT, VAGINAL/RECTAL EXAMINATION, SURGICAL PROCEDURE, OR ANY OTHER EXPOSURE?NO LATEX RISK : HAVE YOU EVER HAD ANY DIFFICULTY BREATHING OR HIVES AFTER EATING OR HANDLING ANY FRUITS, OR VEGETABLES; SUCH KIWI, BANANAS, STONE FRUITS, OR CHESTNUTSNO LATEX RISK : DO YOU HAVE A PREVIOUS PERSONAL HISTORY OF MORE THAN NINE SURGERIES, SPINA BIFIDA, OR REPEATED CATHERIZATIONS? NO LATEX RISK : ARE YOU FREQUENTLY EXPOSED TO LATEX PRODUCTS IN YOUR OCCUPATION?NO DATE ASKED : 12/12/2018 CAFFEINE CAFFEINE USE?YES ICE TEA ALL DAY ADVANCE DIRECTIVE ADVANCE DIRECTIVE DISCUSSED WITH PATIENT:YES DECLINED HCP INFORMATION, STATES SHE HAS THE INFORMATION AT HOME. DECLINED ASSISTANCE IN FILLING OUT THE PAPERWORK. SIKHISM [id number] BAPTISM MARITAL STATUS: SINGLE. ALCOHOL SCREENING DID YOU HAVE A DRINK CONTAINING ALCOHOL IN THE PAST YEAR?YES HOW OFTEN DID YOU HAVE A DRINK CONTAINING ALCOHOL IN THE PAST YEAR?MONTHLY OR LESS (1 POINT) POINTS1 INTERPRETATIONNEGATIVE OCCUPATION: DISABILITY. SEXUAL HX HAD SEX IN THE LAST 12 MONTHS (VAGINAL, ORAL, OR ANAL)?NO HAVE YOU EVER HAD AN STD?NO REVIEWED WITH PATIENT 12/16/18 1017 JSREVIEWED WITH PT 02/17/19 1146 BVREVIEWED WITH PT 04/29/19 1021 BVREVIEWED WITH PATIENT 05/15/19 1045 JS. HOSPITALIZATION/MAJOR DIAGNOSTIC PROCEDURE KIDNEY STONES PANCREATITIS SURGER REVIEW OF SYSTEMS REVIEWED BY: PROVIDER: EMILE CARMICHAEL . CONSTITUTIONAL: ANY CHANGE IN YOUR MEDICAL CONDITION? NO . CHILLS NO . FEVER NO . INFECTION: DO YOU HAVE NEW INFECTIONS? NO . DO YOU HAVE HISTORY OF MRSA? NO . MUSCULOSKELETAL: ANY NEW PATTERNS OF PAIN OR NUMBNESS? NO . GASTROENTEROLOGY: ANY NEW CHANGE IN BOWEL CONTROL? NO . GENITOURINARY: ANY NEW CHANGE IN BLADDER CONTROL? NO . IS THERE A CHANCE YOU COULD BE ? NO . HEMATOLOGY/LYMPH: DO YOU TAKE ANY BLOOD THINNERS? (FOR EXAMPLE- COUMADIN, PLAVIX, AGGRENOX, PLATEL, PRADAXA, OR XARELTO) NO . WHEN WAS YOUR LAST DOSE? DATE: TIME: . NEUROLOGY: HAVE YOU FALLEN IN THE PAST 12 MONTHS? YES, STATES FALL ON DUE TO FALLING OFF STEP STOOL, STATES A LITTLE PAIN IN LEG AND LOWER BACK BUT IMPROVED QUICKLY. STATES NO ED VISIT, NO IMAGING . ANY NEW EXTREMITY NUMBNESS OR WEAKNESS? NO . CARDIOLOGY: DO YOU HAVE A PACEMAKER OR DEFIBRILLATOR? NO . RESPIRATORY: HAVE YOU BEEN SICK IN THE PAST WEEK? NO . FEVER NO . FLU LIKE SYMPTOMS? NO . COUGH NO . INTEGUMENTARY: DO YOU HAVE ANY RASHES OR OPEN SORES? NO . ALLERGIC/IMMUNO: ARE YOU ALLERGIC TO IV DYE? YES . ANY NEW ALLERGIES? NO . PSYCHIATRIC: DO YOU HAVE THOUGHTS OF HURTING YOURSELF OR SOMEONE ELSE? NO . ARE YOU ABUSED, NEGLECTED, OR IN AN UNSAFE ENVIRONMENT? NO . ENDOCRINOLOGY: ARE YOU DIABETIC? YES . OTHER: DO YOU NEED ANY PRESCRIPTIONS? NO . IF YES, PLEASE LIST: ____ . ANY NEW PROBLEMS WITH YOUR MEDICATIONS? NO . WHEN DID YOU LAST EAT? ____ . WHEN DID YOU LAST DRINK? ____ . WHAT DID YOU LAST DRINK? ____ . NAME OF PERSON DRIVING YOU HOME? ____ . DO YOU HAVE ANY OTHER QUESTIONS OR CONCERNS NO . VITAL SIGNS WT 188.6 LBS, HT 65 IN, BMI 31.38 INDEX, BP 137/73 MM HG, HR 75 /MIN, RR 18 /MIN, TEMP 96.4 F, OXYGEN SAT % 98%, SAFE IN ENV? (Y/N) YES, NA INITIALS SC 10:47, REVIEWED BY: GLORIA. EXAMINATION GENERAL EXAMINATION: GENERALNO ACUTE DISTRESS, WELL NOURISHED AND HYDRATED. PSYCHAPPROPRIATE MOOD AND AFFECT . LUNGS:CLEAR TO AUSCULTATION BILATERALLY, NO WHEEZES, RHONCHI, RALES. HEART:NO MURMURS, REGULAR RATE AND RHYTHM. ASSESSMENTS SPONDYLOSIS OF THORACIC REGION WITHOUT MYELOPATHY OR RADICULOPATHY - M47.814 (PRIMARY) TREATMENT SPONDYLOSIS OF THORACIC REGION WITHOUT MYELOPATHY OR RADICULOPATHY CLINICAL NOTES: 59-YEAR-OLD FEMALE IN FOR POST THORACIC FACET BLOCK FOLLOW-UP. GIVEN PRESENTING SYMPTOMS AND RESULTS OF PHYSICAL EXAMINATION RECOMMENDED FOLLOW-UP IN 2 MONTHS. PATIENT HAS EXPRESSED UNDERSTANDING OF AND WAS IN AGREEMENT WITH TREATMENT PLAN. GIVEN TIME TO ASK QUESTIONS AND EXPRESS CONCERNS., ISTOP REGISTRY REVIEWED AND DEMONSTRATES COMPLLIANCE. (REF # [id number] ) BRINGS IN MEDICATIONS WHICH IS APPROPRIATE FOR WHAT WAS DISPENSED. RECENT URINE TOXICOLOGY REVIEWED. NO UNAUTHORIZED MEDICATIONS. NO ILLICIT SUBSTANCES AND PRESCRIBED MEDICATIONS WERE PRESENT. PROCEDURE CODES FA211 ESTABILISHED PATIENT [facility] CHARGE DISPOSITION & COMMUNICATION FOLLOW UP 2 MONTHS (REASON: CHRONIC PAIN ) ELECTRONICALLY SIGNED BY TAVON BUTTS ON 05/16/2019 AT 11:52 AM EDT DISCLAIMER : THIS IS A VISIT SUMMARY EXTRACTED FROM THE [facility] CHART. IT IS NOT A COPY OF THE [facility] PROGRESS NOTE. DOUGLAS
== END ==
LOC: M PAIN 10:30
PROVIDERS: ATTEND Family Medicine
DX: M47.814 Spondylosis without myelopathy or radiculopathy, thoracic region (principal); E11.9 Type 2 diabetes mellitus without complications; Z86.59 Personal history of other mental and behavioral disorders; Z98.84 Bariatric surgery status; Z88.5 Allergy status to narcotic agent; Z88.8 Allergy status to other drugs, medicaments and biological substances; Z91.041 Radiographic dye allergy status; Z79.84 Long term (current) use of oral hypoglycemic drugs; Z79.891 Long term (current) use of opiate analgesic; Z79.899 Other long term (current) drug therapy

== ENCOUNTER 2019-07-23 07:42 | Day surgery (SDC) | payer OTHER ==
[~2019-07-23] VITALS: Ht 167.6 cm; Wt 84.7 kg
[2019-07-23] VITALS (8 sets, daily range): BP systolic 127–142; BP diastolic 69–82
[~2019-07-23 07:42] MED LIST changes: +ACETAMINOPHEN 1000MG 100ML IV BTL (OFIRMEV) (J0131 PER 10MG) As Ordered ONE; +BUPIVACAINE/EPIN 0.5% 30 ML VIAL As Ordered ONE; +FLUORESCEIN 10% (100MG/ML) 5 ML VIAL As Ordered ONE; -IBUP80TA PO; +KETAMINE HCL 200 MG/20 ML VIAL As Ordered ONE; +KETOROLAC 60 MG/2 ML VIAL (J1885) As Ordered ONE; +LIDOCAINE 2% INJ 100 MG/5 ML SDV (FOR ANES.) As Ordered ONE; +LR 1,000 ML IV ONE; +MIDAZOLAM INJ 2 MG/2 ML VIAL (J2250) As Ordered ONE; +ONDANSETRON 4MG/2ML VIAL (J2405) As Ordered ONE; -PERCOCET PO; +PROPOFOL 200 MG/20 ML VIAL As Ordered ONE; +ROCURONIUM BROMIDE 50 MG/5 ML VIAL As Ordered ONE; +SUGAMMADEX SODIUM 500 MG/5 ML VIAL (BRIDION) As Ordered ONE; +ceFAZolin SOD 2 GM in IV 1 EA IV ONE; +dexameTHASONE 4 MG/ML 1ML VIAL (J1100) As Ordered ONE; +fentaNYL 250 MCG/5 ML INJECTION (J3010) As Ordered ONE
[2019-07-23 08:27] LABS: HEMATOCRIT 37.8 % (36.0-47.0); HEMOGLOBIN 12.6 g/dl (12.0-15.5); MEAN CORPUSCULAR HEMOGLOBIN 32.1 pg (27.0-33.0); MEAN CORPUSCULAR HGB CONC 33.3 g/dl (32.0-36.5); MEAN CORPUSCULAR VOLUME 96.2 fl (80.0-96.0); PLATELET COUNT, AUTOMATED 279 10^3/uL (150-450); RED BLOOD COUNT 3.93 10^6/uL (4.00-5.40); WHITE BLOOD COUNT 4.7 10^3/uL (4.0-10.0)
[2019-07-23 08:45] LABS: BLOOD UREA NITROGEN 9 MG/DL (7-18); CALCIUM LEVEL 8.6 MG/DL (8.5-10.1); CARBON DIOXIDE LEVEL 33 MEQ/L (21-32); CHLORIDE LEVEL 108 MEQ/L (98-107); CREATININE FOR GFR 0.74 MG/DL (0.55-1.30); GLOMERULAR FILTRATION RATE > 60.0 (>51); GLUCOSE, FASTING 175 MG/DL (70-100); POTASSIUM SERUM 3.8 MEQ/L (3.5-5.1); SODIUM LEVEL 143 MEQ/L (136-145)
[2019-07-23] MEDS ORDERED: BUPIVACAINE/EPIN 0.25% 30 ML VIAL As Ordered ONE (09:31)
[2019-07-23] MEDS ORDERED: LABETALOL HCL 100 MG/20 ML VIAL As Ordered ONE (10:22)
[2019-07-23] MEDS ORDERED: METHOCARBAMOL 1,000 MG/10 ML VIAL (J2800) As Ordered ONE (10:23)
[2019-07-23] MEDS ORDERED: PERCOCET 5MG/325MG TAB PO PRN (11:15)
[2019-07-23] MEDS ORDERED: ONDANSETRON 4 MG TAB (S0181) PO PRN (11:15)
[2019-07-23] MEDS ORDERED: IBUP80TA PO (11:18)
[2019-07-23] MEDS ORDERED: PERCOCET PO (11:18)
[2019-07-23] MEDS ORDERED: MORPHINE 10 MG/ML 1ML VIAL (J2270) IV PRN (11:30)
[2019-07-23] MEDS ORDERED: NORCO, ANEXSIA 5/325MG TABLET (HYDROcodone/ACETAMINOPHEN) PO PRN (11:30)
[2019-07-23] MEDS ORDERED: ONDANSETRON 4MG/2ML VIAL (J2405) IV PRN (11:30)
[2019-07-23] MEDS ORDERED: fentaNYL 100 MCG/2 ML INJECTION (J3010) IV PRN (11:30)
[2019-07-23] MEDS ORDERED: LR 1,000 ML IV SCH (11:30)
[2019-07-23] MEDS ORDERED: METOCLOPRAMIDE INJ 10MG/2ML VIAL (J2765) IV PRN (11:45)
[2019-07-23] MEDS: LR 1,000 ML IV SCH ×2 (12:16→21:00)
[2019-07-23] MEDS: NORCO, ANEXSIA 5/325MG TABLET (HYDROcodone/ACETAMINOPHEN) PO PRN ×3 (12:58→20:57)
[2019-07-23] MEDS: DOCUSATE SODIUM 100 MG CAP PO SCH (20:56)
[2019-07-23] MEDS ORDERED: traZODone 50 MG TAB PO SCH (21:00)
[2019-07-23] MEDS ORDERED: CYCLOBENZAPRINE 5MG TABLET PO SCH (21:00)
[2019-07-23] MEDS: tiZANidine 4 MG TAB PO SCH (22:05)
[2019-07-24] MEDS: NORCO, ANEXSIA 5/325MG TABLET (HYDROcodone/ACETAMINOPHEN) PO PRN ×2 (02:40→07:50)
[2019-07-24] MEDS: LR 1,000 ML IV SCH (03:10)
[2019-07-24 06:00] VITALS: BP 138/74
[2019-07-24] MEDS: tiZANidine 4 MG TAB PO SCH (07:48)
[2019-07-24] MEDS: DOCUSATE SODIUM 100 MG CAP PO SCH (07:48)
[2019-07-24] MEDS ORDERED: IBUPROFEN 800 MG TAB PO SCH (19:00)
--- NOTE | 2019-07-26 14:30 | RO ---
DATE OF PROCEDURE: 07/23/2019 Elif is a 59-year-old female with postmenopausal bleeding, left ovarian cyst, and morbid obesity. After counseling, the decision was made to proceed with a robotic-assisted total hysterectomy, removal of both tubes and ovaries, and cystoscopy. PREOPERATIVE DIAGNOSES: 1. Postmenopausal bleeding. 2. Left ovarian cyst. 3. Obesity. POSTOPERATIVE DIAGNOSES: 1. Postmenopausal bleeding. 2. Left ovarian cyst. 3. Obesity. PROCEDURES: 1. Robotic-assisted total hysterectomy. 2. Bilateral salpingo-oophorectomy. 3. Cystoscopy. ANESTHESIA: General. SURGEON: Clarence Hartmann DO MEAT CUTTING TEACHER: COMPLICATIONS: None. ESTIMATED BLOOD LOSS: Less than 20 mL. FINDINGS: A left simple ovarian cyst with normal-appearing uterus and tubes and ovaries. On cystoscopy, bilateral ureteral jets were noted. No evidence of any bladder injury noted. DESCRIPTION OF PROCEDURE: After obtaining informed consent, the patient was taken to the operating room, where general anesthetic was found to be adequate. She was then draped and prepped in the usual sterile fashion in dorsal lithotomy position. At this point, a Lott catheter was placed in the bladder for drainage. We then placed a HUMI II uterine manipulator. I then turned my attention to the abdomen, where an 8-mm supraumbilical incision was made. Using the Veress needle, the abdomen was insufflated with CO2 gas to approximately 3.5 liters. We then placed an 8-mm trocar under direct visualization, then two left 8-mm lateral ports were placed for robotic arm #2 and the assist port; and on the right, an 8-mm port was placed for robotic arm #1. These ports were placed under direct visualization. The patient was then placed in steep Trendelenburg. The robot was brought to the patient's right side and docked in usual fashion. After targeting the system, the remaining arms were docked. We then placed a vessel sealer in arm #2 and a bipolar grasper in arm #1. I unscrubbed and went to the surgeon console and began the surgery. At this point, the infundibulopelvic ligament was identified on the left. This was cauterized and cut using the vessel sealer. We then took serial bites all the way down to the round ligament. The uterine arteries, those were cauterized and cut using the vessel sealer. At this point, the anterior leaflet of the broad ligament was dissected to create a bladder flap. The opposite side was done in similar fashion. The bladder flap was completed. The bladder was pushed out of the operative field. The uterine arteries were fairly secured using the bipolar grasper and the vessel sealer. At this point, the vessel sealer was removed. An Endo Shear was placed. Anterior and posterior colpotomy was performed, and the uterus, as well as bilateral fallopian tubes and ovaries, as well as the cyst, was removed through the vagina. These were sent to pathology for final diagnosis. I then removed the Endo Shear. A needle new car driver was inserted, and a 3-0 V-Loc suture was inserted. The vaginal cuff was closed in running fashion using the 3-0 V-Loc suture. The peritoneum over the vaginal cuff was also closed in a similar fashion. The pelvis copiously irrigated with normal saline and suctioned out. 1 mL of Furacin was given by the anesthesiologist to help with the cystoscopy. At this point, I rescrubbed and went to the patient's side. Retrograde filled the bladder to approximately 250 mL of normal saline, and cystoscopy was performed. Bilateral ureteral jets noted. No evidence of any bladder injury noted. At this point, the Lott catheter was replaced. Attention was then turned to the abdomen, where the robot was completely undocked. The robotic ports were removed, and these were closed using a 3-0 Vicryl suture in a subcuticular fashion. 0.25% Marcaine was placed at the trocar sites for postoperative pain. The patient tolerated the procedure well. She was then transferred to recovery room in stable condition. DOUGLAS
== END 2019-07-24 09:45 | disposition home or self-care (01) ==
LOC: M SDC 07:42 → M MS5PR 11:55 → M SDC 07-24 09:45
PROVIDERS: ATTEND Obstetrics & Gynecology
DX: N95.0 Postmenopausal bleeding (principal); N83.292 Other ovarian cyst, left side; N85.4 Malposition of uterus; E11.40 Type 2 diabetes mellitus with diabetic neuropathy, unspecified; F41.9 Anxiety disorder, unspecified; F32.9 Major depressive disorder, single episode, unspecified; M12.9 Arthropathy, unspecified; S22.31XD Fracture of one rib, right side, subsequent encounter for fracture with routine healing; Z88.5 Allergy status to narcotic agent; Z88.8 Allergy status to other drugs, medicaments and biological substances; Z91.041 Radiographic dye allergy status; Z91.048 Other nonmedicinal substance allergy status; Z79.899 Other long term (current) drug therapy; Z79.84 Long term (current) use of oral hypoglycemic drugs; Z98.84 Bariatric surgery status; Z87.891 Personal history of nicotine dependence
CPT/HCPCS: 36415; 58571; 80048; 81025; 85027; 86850; 86900; 86901; 88307; J0131; J0690; J1100; J1885; J2250; J2405; J2800; J3010

== ENCOUNTER → 2019-09-01 | Outpatient (CLI) | payer OTHER ==
[~2019-09-01] MED LIST changes: -ACETAMINOPHEN 1000MG 100ML IV BTL (OFIRMEV) (J0131 PER 10MG) As Ordered ONE; -BUPIVACAINE/EPIN 0.5% 30 ML VIAL As Ordered ONE; -FLUORESCEIN 10% (100MG/ML) 5 ML VIAL As Ordered ONE; +IBUP80TA PO; -KETAMINE HCL 200 MG/20 ML VIAL As Ordered ONE; -KETOROLAC 60 MG/2 ML VIAL (J1885) As Ordered ONE; -LIDOCAINE 2% INJ 100 MG/5 ML SDV (FOR ANES.) As Ordered ONE; -LR 1,000 ML IV ONE; -MIDAZOLAM INJ 2 MG/2 ML VIAL (J2250) As Ordered ONE; -ONDANSETRON 4MG/2ML VIAL (J2405) As Ordered ONE; +PERCOCET PO; -PROPOFOL 200 MG/20 ML VIAL As Ordered ONE; -ROCURONIUM BROMIDE 50 MG/5 ML VIAL As Ordered ONE; -SUGAMMADEX SODIUM 500 MG/5 ML VIAL (BRIDION) As Ordered ONE; -ceFAZolin SOD 2 GM in IV 1 EA IV ONE; -dexameTHASONE 4 MG/ML 1ML VIAL (J1100) As Ordered ONE; -fentaNYL 250 MCG/5 ML INJECTION (J3010) As Ordered ONE
--- NOTE | 2019-09-03 02:30 | ECWPNPC ---
PATIENT NAME: ROBINA LESTER : 1960 GENDER: FEMALE VISIT DATE: 09/01/2019 DISCHARGE DATE: 09/01/19 1226 VISIT LOCKED DATE TIME: PHYSICIAN: AASHISH MANLEY RESOURCE: AASHISH MANLEY REASON FOR APPOINTMENT 1. CHRONIC PAIN HISTORY OF PRESENT ILLNESS HISTORY OF PRESENT ILLNESS: PAIN THE PATIENT DESCRIBES THE PAIN... 51-YEAR-OLD FEMALE IN FOR CHRONIC PAIN FOLLOW-UP. SHE RATES HER PAIN CURRENTLY AT A 2 OUT OF 10 AND DESCRIBES IT ACHING, AND TENDER. SHE FEELS HER MEDICATIONS ARE WORKING WELL AND DENIES MED SIDE EFFECTS AT THIS TIME. FALL RISK SCREENING: SCREENING :NO FALLS REPORTED IN THE LAST YEAR CURRENT MEDICATIONS TAKING PRAVASTATIN SODIUM 10 MG TABLET 1 TABLET ORALLY ONCE A DAY TAKING PREMARIN 0.625 MG TABLET 1 TABLET ORALLY DAILY TAKING METFORMIN HCL 500 MG TABLET 1 TABLET WITH MEALS ORALLY THREE TIMES A DAY TAKING DULOXETINE HCL 60 MG CAPSULE DELAYED RELEASE PARTICLES 1 CAPSULE ORALLY TWICE A DAY TAKING ALPRAZOLAM 0.5 MG TABLET 1 TABLET ORALLY FOUR TIMES DAILY NEEDED TAKING LATANOPROST 0.005 % SOLUTION 1 DROP INTO AFFECTED EYE IN THE EVENING OPHTHALMIC ONCE A DAY TAKING FLUTICASONE PROPIONATE HFA 44 MCG/ACT AEROSOL 1 PUFF INHALATION TWICE A DAY TAKING JANUVIA 100 MG TABLET 1 TABLET ORALLY ONCE A DAY TAKING TRAZODONE HCL 150 MG TABLET 1 TABLET AT BEDTIME ORALLY ONCE A DAY TAKING MOVANTIK 25 MG TABLET 1 TABLET IN THE MORNING ORALLY ONCE A DAY TAKING TIZANIDINE HCL 4 MG TABLET 1 TAB(S) ORALLY TWICE A DAY TAKING METHOCARBAMOL 750 MG TABLET 1 TABLET ORALLY BID TAKING NORCO 10-325 MG TABLET 1 ORALLY Q4-6H PRN MDD5 - SLOW WEAN OF MED NOT-TAKING MULTIVITAMINS - TABLET 1 TABLET ORALLY ONCE A DAY NOT-TAKING CURCUMIN 95 500 MG CAPSULE ORALLY NOT-TAKING CINNAMON 500 MG CAPSULE 2 CAPS ORALLY BID NOT-TAKING DOCUSATE SODIUM 100 MG TABLET 1 TABLET NEEDED ORALLY ONCE A DAY MEDICATION LIST REVIEWED AND RECONCILED WITH THE PATIENT PAST MEDICAL HISTORY NIDDM DEPRESSION/ANXIETY CHRONIC PAIN KIDNEY STONE ALLERGIES LYRICA: SWELLING - ALLERGY DILAUDID: ITCH - ALLERGY OXYCODONE: ITCH - ALLERGY IV DYE: HIVES - ALLERGY SURGICAL HISTORY TONSILECTOMY CTR R/L ULNAR NERVE TRANSPOSITION 3 BACK SURGERY GASTRIC BYPASS REMOVAL OF EXCESS SKIN FROM ABDOMEN CHOLECYSTECTOMY CYSTOSCOPY WITH LEFT STENT REMOVAL 11/2018 CYSTO, LEFT URETEROSCOPY WITH DAVIE LITHO, DOUBLE J STENT 11/2018 FAMILY HISTORY FATHER: MOTHER: 7 BROTHER(S) , 6 SISTER(S) . 1 BROTHER . SOCIAL HISTORY GENERAL: TOBACCO USE ARE YOU A:NONSMOKER DIET: REGULAR. LANGUAGE LANGUAGES SPOKEN:[place] RECREATIONAL DRUG USE DRUG USE?NO EXERCISE: DAILY. LEARNING BARRIERS / SPECIAL NEEDS HEARING IMPAIRED?NO VISION IMPAIRED?YES COGNITIVELY IMPAIRED?NO :CORRECTIVE LENSES READINESS TO LEARN?YES PAIN CLINIC PFS, CLERGY, PUBLIC HEALTH REFERRALS HAS THE PATIENT BEEN EDUCATED REGARDING HIS/HER PLAN OF CARE?YES HAS THE PATIENT BEEN EDUCATED REGARDING PAIN, THE RISK FOR PAIN, THE IMPORTANCE OF EFFECTIVE PAIN MANAGEMENT, AND THE PAIN ASSESSMENT PROCESS?YES LATEX QUESTIONNAIRE LATEX ALLERGY : HAVE YOU EVER DEVELOPED ANY TYPE OF REACTION AFTER HANDLING LATEX PRODUCTS SUCH RUBBER GLOVES, CONDOMS, DIAPHRAGMS, BALLOONS, SOCKS, OR UNDERWEAR?YES - PLEASE INDICATE : SENSITIVITY TO BANDAIDS LATEX ALLERGY : HAVE YOU EVER DEVELOPED ANY TYPE OF REACTION DURING OR AFTER DENTAL APPOINTMENT, VAGINAL/RECTAL EXAMINATION, SURGICAL PROCEDURE, OR ANY OTHER EXPOSURE?NO LATEX RISK : HAVE YOU EVER HAD ANY DIFFICULTY BREATHING OR HIVES AFTER EATING OR HANDLING ANY FRUITS, OR VEGETABLES; SUCH KIWI, BANANAS, STONE FRUITS, OR CHESTNUTSNO LATEX RISK : DO YOU HAVE A PREVIOUS PERSONAL HISTORY OF MORE THAN NINE SURGERIES, SPINA BIFIDA, OR REPEATED CATHERIZATIONS? NO LATEX RISK : ARE YOU FREQUENTLY EXPOSED TO LATEX PRODUCTS IN YOUR OCCUPATION?NO DATE ASKED : 09/01/2019 CAFFEINE CAFFEINE USE?YES ICE TEA ALL DAY ADVANCE DIRECTIVE ADVANCE DIRECTIVE DISCUSSED WITH PATIENT:YES DECLINED HCP INFORMATION, STATES SHE HAS THE INFORMATION AT HOME. DECLINED ASSISTANCE IN FILLING OUT THE PAPERWORK. 09/01/2019 [facility] GNOSTICISM [id number] CONFUCIANISM MARITAL STATUS: SINGLE. ALCOHOL SCREENING DID YOU HAVE A DRINK CONTAINING ALCOHOL IN THE PAST YEAR?YES HOW OFTEN DID YOU HAVE A DRINK CONTAINING ALCOHOL IN THE PAST YEAR?MONTHLY OR LESS (1 POINT) POINTS1 INTERPRETATIONNEGATIVE OCCUPATION: DISABILITY. SEXUAL HX HAD SEX IN THE LAST 12 MONTHS (VAGINAL, ORAL, OR ANAL)?NO HAVE YOU EVER HAD AN STD?NO REVIEWED WITH PATIENT 12/16/18 1017 JSREVIEWED WITH PT 02/17/19 1146 BVREVIEWED WITH PT 04/29/19 1021 BVREVIEWED WITH PATIENT 05/15/19 1045 JSREVIEWED 09/01/2019 [facility]. HOSPITALIZATION/MAJOR DIAGNOSTIC PROCEDURE KIDNEY STONES PANCREATITIS SURGER REVIEW OF SYSTEMS REVIEWED BY: PROVIDER: EMILE CARMICHAEL . CONSTITUTIONAL: ANY CHANGE IN YOUR MEDICAL CONDITION? NO . CHILLS NO . FEVER NO . INFECTION: DO YOU HAVE NEW INFECTIONS? NO . DO YOU HAVE HISTORY OF MRSA? NO . MUSCULOSKELETAL: ANY NEW PATTERNS OF PAIN OR NUMBNESS? NO . GASTROENTEROLOGY: ANY NEW CHANGE IN BOWEL CONTROL? NO . GENITOURINARY: ANY NEW CHANGE IN BLADDER CONTROL? NO . IS THERE A CHANCE YOU COULD BE ? NO . HEMATOLOGY/LYMPH: DO YOU TAKE ANY BLOOD THINNERS? (FOR EXAMPLE- COUMADIN, PLAVIX, AGGRENOX, PLATEL, PRADAXA, OR XARELTO) NO . WHEN WAS YOUR LAST DOSE? DATE: TIME: . NEUROLOGY: HAVE YOU FALLEN IN THE PAST 12 MONTHS? YES, PT STATES THAT SHE WAS HOME AND FELL, FRACTURED RIBS AND HIT HEAD, HAD CHEST XRAY AFTER FALL AND DX WITH FRACTURES. . ANY NEW EXTREMITY NUMBNESS OR WEAKNESS? NO . CARDIOLOGY: DO YOU HAVE A PACEMAKER OR DEFIBRILLATOR? NO . RESPIRATORY: HAVE YOU BEEN SICK IN THE PAST WEEK? NO . FEVER NO . FLU LIKE SYMPTOMS? NO . COUGH NO . INTEGUMENTARY: DO YOU HAVE ANY RASHES OR OPEN SORES? NO . ALLERGIC/IMMUNO: ARE YOU ALLERGIC TO IV DYE? YES, PT UNABLE TO HAVE IV DYE . ANY NEW ALLERGIES? YES, PT STATES THAT SHE DEVELOPS REDNESS AND ITCHING WITH BANDAIDS . PSYCHIATRIC: DO YOU HAVE THOUGHTS OF HURTING YOURSELF OR SOMEONE ELSE? NO . ARE YOU ABUSED, NEGLECTED, OR IN AN UNSAFE ENVIRONMENT? NO . ENDOCRINOLOGY: ARE YOU DIABETIC? YES, PT DOES NOT DO DAILY FSBS, REGULAR BLOODWORK. . OTHER: DO YOU NEED ANY PRESCRIPTIONS? NO . IF YES, PLEASE LIST: ____ . ANY NEW PROBLEMS WITH YOUR MEDICATIONS? NO . WHEN DID YOU LAST EAT? ____ . WHEN DID YOU LAST DRINK? ____ . WHAT DID YOU LAST DRINK? ____ . NAME OF PERSON DRIVING YOU HOME? ____ . DO YOU HAVE ANY OTHER QUESTIONS OR CONCERNS NO . VITAL SIGNS WT 185.0 LBS, HT 65 IN, BMI 30.78 INDEX, BP 145/75 MM HG, HR 84 /MIN, RR 18 /MIN, TEMP 96.9 F, OXYGEN SAT % 99%, SAFE IN ENV? (Y/N) Y, NA INITIALS AW 1201, REVIEWED BY: SAMINA. EXAMINATION GENERAL EXAMINATION: GENERALNO ACUTE DISTRESS, WELL NOURISHED AND HYDRATED. PSYCHAPPROPRIATE MOOD AND AFFECT . LUNGS:CLEAR TO AUSCULTATION BILATERALLY, NO WHEEZES, RHONCHI, RALES. HEART:NO MURMURS, REGULAR RATE AND RHYTHM. ASSESSMENTS SPONDYLOSIS OF THORACIC REGION WITHOUT MYELOPATHY OR RADICULOPATHY - M47.814 (PRIMARY) TREATMENT SPONDYLOSIS OF THORACIC REGION WITHOUT MYELOPATHY OR RADICULOPATHY CLINICAL NOTES: 59-YEAR-OLD FEMALE IN FOR CHRONIC PAIN FOLLOW-UP. GIVEN PRESENTING SYMPTOMS AND RESULTS OF PHYSICAL EXAMINATION RECOMMENDED CONTINUATION OF CURRENT MEDICATION REGIMEN WITH FOLLOW-UP IN 3 MONTHS. PATIENT HAS EXPRESSED UNDERSTANDING OF AND WAS IN AGREEMENT WITH TREATMENT PLAN. GIVEN TIME TO ASK QUESTIONS AND EXPRESS CONCERNS., ISTOP REGISTRY REVIEWED AND DEMONSTRATES COMPLLIANCE. (REF # [id number] ) BRINGS IN MEDICATIONS WHICH IS APPROPRIATE FOR WHAT WAS DISPENSED. RECENT URINE TOXICOLOGY REVIEWED. NO UNAUTHORIZED MEDICATIONS. NO ILLICIT SUBSTANCES AND PRESCRIBED MEDICATIONS WERE PRESENT. PROCEDURE CODES FA211 ESTABILISHED PATIENT [facility] CHARGE DISPOSITION & COMMUNICATION FOLLOW UP 3 MONTHS (REASON: BACK PAIN ) ELECTRONICALLY SIGNED BY TAVON BUTTS ON 09/02/2019 AT 09:38 AM EST DISCLAIMER : THIS IS A VISIT SUMMARY EXTRACTED FROM THE [facility] CHART. IT IS NOT A COPY OF THE [facility] PROGRESS NOTE. DOUGLAS
== END ==
LOC: M PAIN 11:15
PROVIDERS: ATTEND Family Medicine
DX: M47.814 Spondylosis without myelopathy or radiculopathy, thoracic region (principal)

== ENCOUNTER → 2019-12-26 | Outpatient (CLI) | payer OTHER ==
--- NOTE | 2019-12-30 03:20 | ECWPNPC ---
PATIENT NAME: ROBINA LESTER : 1960 GENDER: FEMALE VISIT DATE: 12/26/2019 DISCHARGE DATE: 12/26/19 1231 VISIT LOCKED DATE TIME: PHYSICIAN: AASHISH MANLEY RESOURCE: AASHISH MANLEY REASON FOR APPOINTMENT 1. BACK HISTORY OF PRESENT ILLNESS HISTORY OF PRESENT ILLNESS: PAIN THE PATIENT DESCRIBES THE PAIN... ADMISSION REQUESTED AND RECEIVED FOR PATIENT TO PERFORM TELEPHONE VISIT. 59-YEAR-OLD FEMALE IN FOR CHRONIC PAIN FOLLOW-UP. SHE RATES HER PAIN CURRENTLY AT A 3 OUT OF 10 AND DESCRIBES IT ACHING. SHE FEELS HER MEDICATIONS ARE WORKING WELL AND DENIES MED SIDE EFFECTS AT THIS TIME. FALL RISK SCREENING: SCREENING :NO FALLS REPORTED IN THE LAST YEAR CURRENT MEDICATIONS TAKING PRAVASTATIN SODIUM 10 MG TABLET 1 TABLET ORALLY ONCE A DAY TAKING PREMARIN 0.625 MG TABLET 1 TABLET ORALLY DAILY TAKING METFORMIN HCL 500 MG TABLET 1 TABLET WITH MEALS ORALLY THREE TIMES A DAY TAKING DULOXETINE HCL 60 MG CAPSULE DELAYED RELEASE PARTICLES 1 CAPSULE ORALLY TWICE A DAY TAKING ALPRAZOLAM 0.5 MG TABLET 1 TABLET ORALLY FOUR TIMES DAILY NEEDED TAKING LATANOPROST 0.005 % SOLUTION 1 DROP INTO AFFECTED EYE IN THE EVENING OPHTHALMIC ONCE A DAY TAKING FLUTICASONE PROPIONATE HFA 44 MCG/ACT AEROSOL 1 PUFF INHALATION TWICE A DAY TAKING TRAZODONE HCL 150 MG TABLET 1 TABLET AT BEDTIME ORALLY ONCE A DAY TAKING TIZANIDINE HCL 4 MG TABLET 1 TAB(S) ORALLY TWICE A DAY TAKING NORCO 10-325 MG TABLET 1 ORALLY Q4-6H PRN MDD5 - SLOW WEAN OF MED TAKING MOVANTIK 25 MG TABLET 1 TABLET IN THE MORNING ORALLY ONCE A DAY TAKING METHOCARBAMOL 750 MG TABLET 1 TABLET ORALLY BID TAKING ALOGLIPTIN BENZOATE 25 MG TABLET 1 TABLET ORALLY ONCE A DAY TAKING MAY HAVE - - BEET ROOT ORALLY DAILY TAKING CALCIUM 600 MG TABLET 1 TABLET WITH MEALS ORALLY DAILY TAKING MAGNESIUM 250 MG TABLET 1 TABLET WITH A MEAL ORALLY ONCE A DAY TAKING VITAMIN D3 25 MCG (1000 UT) CAPSULE 1 CAPSULE ORALLY ONCE A DAY TAKING TR-C 1000-50 MG TABLET DIRECTED ORALLY TAKING CURCUMIN 95 500 MG CAPSULE ORALLY NOT-TAKING JANUVIA 100 MG TABLET 1 TABLET ORALLY ONCE A DAY NOT-TAKING MULTIVITAMINS - TABLET 1 TABLET ORALLY ONCE A DAY NOT-TAKING CINNAMON 500 MG CAPSULE 2 CAPS ORALLY BID NOT-TAKING DOCUSATE SODIUM 100 MG TABLET 1 TABLET NEEDED ORALLY ONCE A DAY MEDICATION LIST REVIEWED AND RECONCILED WITH THE PATIENT PAST MEDICAL HISTORY NIDDM DEPRESSION/ANXIETY CHRONIC PAIN KIDNEY STONE ALLERGIES LYRICA: SWELLING - ALLERGY DILAUDID: ITCH - ALLERGY OXYCODONE: ITCH - ALLERGY IV DYE: HIVES - ALLERGY LATEX (FOR ALLERGY USE ONLY): BLISTER - ALLERGY SURGICAL HISTORY TONSILECTOMY CTR R/L ULNAR NERVE TRANSPOSITION 3 BACK SURGERY GASTRIC BYPASS REMOVAL OF EXCESS SKIN FROM ABDOMEN CHOLECYSTECTOMY CYSTOSCOPY WITH LEFT STENT REMOVAL 11/2018 CYSTO, LEFT URETEROSCOPY WITH DAVIE LITHO, DOUBLE J STENT 11/2018 TOTAL HYSTRECTOMY 06/2019 FAMILY HISTORY FATHER: MOTHER: 7 BROTHER(S) , 6 SISTER(S) . 1 BROTHER . SOCIAL HISTORY GENERAL: TOBACCO USE ARE YOU A:NONSMOKER LATEX QUESTIONNAIRE LATEX ALLERGY : HAVE YOU EVER DEVELOPED ANY TYPE OF REACTION AFTER HANDLING LATEX PRODUCTS SUCH RUBBER GLOVES, CONDOMS, DIAPHRAGMS, BALLOONS, SOCKS, OR UNDERWEAR?YES LATEX ALLERGY : HAVE YOU EVER DEVELOPED ANY TYPE OF REACTION DURING OR AFTER DENTAL APPOINTMENT, VAGINAL/RECTAL EXAMINATION, SURGICAL PROCEDURE, OR ANY OTHER EXPOSURE?NO - PLEASE INDICATE : SENSITIVITY TO BANDAIDS DATE ASKED : 09/01/2019 LATEX RISK : HAVE YOU EVER HAD ANY DIFFICULTY BREATHING OR HIVES AFTER EATING OR HANDLING ANY FRUITS, OR VEGETABLES; SUCH KIWI, BANANAS, STONE FRUITS, OR CHESTNUTSNO LATEX RISK : DO YOU HAVE A PREVIOUS PERSONAL HISTORY OF MORE THAN NINE SURGERIES, SPINA BIFIDA, OR REPEATED CATHERIZATIONS? NO LATEX RISK : ARE YOU FREQUENTLY EXPOSED TO LATEX PRODUCTS IN YOUR OCCUPATION?NO ALCOHOL SCREENING DID YOU HAVE A DRINK CONTAINING ALCOHOL IN THE PAST YEAR?YES HOW OFTEN DID YOU HAVE A DRINK CONTAINING ALCOHOL IN THE PAST YEAR?MONTHLY OR LESS (1 POINT) POINTS1 INTERPRETATIONNEGATIVE RECREATIONAL DRUG USE DRUG USE?NO CAFFEINE CAFFEINE USE?YES ICE TEA ALL DAY SEXUAL HX HAD SEX IN THE LAST 12 MONTHS (VAGINAL, ORAL, OR ANAL)?NO HAVE YOU EVER HAD AN STD?NO [employer] [id number] RELIGION LANGUAGE LANGUAGES SPOKEN:RWANDAN LEARNING BARRIERS / SPECIAL NEEDS HEARING IMPAIRED?NO VISION IMPAIRED?YES COGNITIVELY IMPAIRED?NO :CORRECTIVE LENSES READINESS TO LEARN?YES OCCUPATION: DISABILITY. DIET: REGULAR. EXERCISE: DAILY. MARITAL STATUS: SINGLE. NEW PATIENT PAIN DIARY TODAY'S VISIT 12/25/19 PATIENT DESCRIBES PAIN :ACHING, HAVE IT ALL THE TIME, THROBBING FROM 0-10, WHAT LEVEL IS YOUR PAIN TODAY?4 PRECIPITATING FACTORS ACTIVITY ALLEVIATING FACTORS LAYING DOWN IMPACT ON FUNCTION SOME DAYS PAIN CLINIC PFS, CLERGY, PUBLIC HEALTH REFERRALS HAS THE PATIENT BEEN EDUCATED REGARDING HIS/HER PLAN OF CARE?YES HAS THE PATIENT BEEN EDUCATED REGARDING PAIN, THE RISK FOR PAIN, THE IMPORTANCE OF EFFECTIVE PAIN MANAGEMENT, AND THE PAIN ASSESSMENT PROCESS?YES ADVANCE DIRECTIVE ADVANCE DIRECTIVE DISCUSSED WITH PATIENT:YES DECLINED HCP INFORMATION, STATES SHE HAS THE INFORMATION AT HOME. DECLINED ASSISTANCE IN FILLING OUT THE PAPERWORK. REVIEWED WITH PATIENT 12/16/18 1017 JSREVIEWED WITH PT 02/17/19 1146 BVREVIEWED WITH PT 04/29/19 1021 BVREVIEWED WITH PATIENT 05/15/19 1045 JSREVIEWED 09/01/2019 LAS. HOSPITALIZATION/MAJOR DIAGNOSTIC PROCEDURE KIDNEY STONES PANCREATITIS SURGER SURGERY REVIEW OF SYSTEMS REVIEWED BY: PROVIDER: EMILE CARMICHAEL . CONSTITUTIONAL: ANY CHANGE IN YOUR MEDICAL CONDITION? NO . CHILLS NO . FEVER NO . INFECTION: DO YOU HAVE NEW INFECTIONS? NO . DO YOU HAVE HISTORY OF MRSA? NO . MUSCULOSKELETAL: ANY NEW PATTERNS OF PAIN OR NUMBNESS? NO . GASTROENTEROLOGY: ANY NEW CHANGE IN BOWEL CONTROL? NO . GENITOURINARY: ANY NEW CHANGE IN BLADDER CONTROL? NO . IS THERE A CHANCE YOU COULD BE ? NO . HEMATOLOGY/LYMPH: DO YOU TAKE ANY BLOOD THINNERS? (FOR EXAMPLE- COUMADIN, PLAVIX, AGGRENOX, PLATEL, PRADAXA, OR XARELTO) NO . WHEN WAS YOUR LAST DOSE? DATE: TIME: . NEUROLOGY: HAVE YOU FALLEN IN THE PAST 12 MONTHS? YES, PRIOR TO LAST VISIT . ANY NEW EXTREMITY NUMBNESS OR WEAKNESS? NO . CARDIOLOGY: DO YOU HAVE A PACEMAKER OR DEFIBRILLATOR? NO . RESPIRATORY: HAVE YOU BEEN SICK IN THE PAST WEEK? NO . FEVER NO . FLU LIKE SYMPTOMS? NO . COUGH NO . INTEGUMENTARY: DO YOU HAVE ANY RASHES OR OPEN SORES? NO . ALLERGIC/IMMUNO: ARE YOU ALLERGIC TO IV DYE? YES . ANY NEW ALLERGIES? NO . PSYCHIATRIC: DO YOU HAVE THOUGHTS OF HURTING YOURSELF OR SOMEONE ELSE? NO . ARE YOU ABUSED, NEGLECTED, OR IN AN UNSAFE ENVIRONMENT? NO . ENDOCRINOLOGY: ARE YOU DIABETIC? YES . OTHER: DO YOU NEED ANY PRESCRIPTIONS? YES, HYDROCODONE . IF YES, PLEASE LIST: ____ . ANY NEW PROBLEMS WITH YOUR MEDICATIONS? NO . WHEN DID YOU LAST EAT? ____ . WHEN DID YOU LAST DRINK? ____ . WHAT DID YOU LAST DRINK? ____ . NAME OF PERSON DRIVING YOU HOME? ____ . DO YOU HAVE ANY OTHER QUESTIONS OR CONCERNS NO . EXAMINATION GENERAL EXAMINATION: PSYCHAPPROPRIATE MOOD AND AFFECT , ORIENTED X 3. 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 GIVEN PRESENTING SYMPTOMS RECOMMENDED CONTINUATION OF CURRENT MEDICATION REGIMEN WITH FOLLOW-UP IN 3 MONTHS. PATIENT HAS EXPRESSED UNDERSTANDING OF AND WAS IN AGREEMENT WITH TREATMENT PLAN. GIVEN TIME TO ASK QUESTIONS AND EXPRESS CONCERNS. , ISTOP REGISTRY REVIEWED AND DEMONSTRATES COMPLLIANCE. (REF # [id number] ) BRINGS IN MEDICATIONS WHICH IS APPROPRIATE FOR WHAT WAS DISPENSED. RECENT URINE TOXICOLOGY REVIEWED. NO UNAUTHORIZED MEDICATIONS. NO ILLICIT SUBSTANCES AND PRESCRIBED MEDICATIONS WERE PRESENT. VISIT TO BE BILLED BASED ON TIME SPENT WITH PATIENT. TIME SPENT WITH PATIENT 11 MINUTES. DISPOSITION & COMMUNICATION FOLLOW UP 3 MONTHS (REASON: BACK PAIN) ELECTRONICALLY SIGNED BY TAVON BUTTS ON 12/29/2019 AT 02:33 PM EDT DISCLAIMER : THIS IS A VISIT SUMMARY EXTRACTED FROM THE [employer] CHART. IT IS NOT A COPY OF THE [employer] PROGRESS NOTE. DOUGLAS
== END ==
LOC: M PAIN 13:15
PROVIDERS: ATTEND Family Medicine
DX: M51.24 Other intervertebral disc displacement, thoracic region (principal); G89.29 Other chronic pain; E11.9 Type 2 diabetes mellitus without complications; Z86.59 Personal history of other mental and behavioral disorders; Z98.84 Bariatric surgery status; Z88.5 Allergy status to narcotic agent; Z88.8 Allergy status to other drugs, medicaments and biological substances; Z91.040 Latex allergy status; Z91.041 Radiographic dye allergy status; Z79.84 Long term (current) use of oral hypoglycemic drugs; Z79.891 Long term (current) use of opiate analgesic; Z79.899 Other long term (current) drug therapy

== ENCOUNTER → 2020-03-29 | Outpatient (CLI) | payer OTHER ==
[~2020-03-29] MED LIST changes: -MOVA1TAB2 PO; +NALO25TA PO
== END ==
LOC: M PAIN 10:00
PROVIDERS: ATTEND Family Medicine
DX: M51.24 Other intervertebral disc displacement, thoracic region (principal)

== ENCOUNTER → 2020-06-24 | Outpatient (CLI) | payer OTHER ==
--- NOTE | 2020-06-26 00:20 | ECWPNPC ---
PATIENT NAME: ROBINA LESTER : 1960 GENDER: FEMALE VISIT DATE: 06/24/2020 DISCHARGE DATE: 06/24/20 1145 VISIT LOCKED DATE TIME: PHYSICIAN: AASHISH MANLEY RESOURCE: AASHISH MANLEY REASON FOR APPOINTMENT 1. MED MANAGEMENT/ BACK PAIN HISTORY OF PRESENT ILLNESS GENERAL: 60-YEAR-OLD FEMALE IN FOR CHRONIC PAIN FOLLOW-UP. SHE FEELS THE MEDICATIONS ARE HELPFUL AND DENIES MED SIDE EFFECTS AT THIS TIME. SHE RATES HER PAIN CURRENTLY AT A 3 OUT OF 10. -. FALL RISK SCREENING: SCREENING :NO FALLS REPORTED IN THE LAST YEAR NONE PAIN SCREENING: PATIENT HAS A COMPLAINT OF ACUTE OR CHRONIC PAIN :YES LOCATION OF PAIN:LOW BACK INTENSITY OF PAIN (SCALE OF 1 TO 10):4 WHAT DOES YOUR PAIN FEEL LIKE:ACHING, TENDER DURATION:CONTINOUS PAIN IS INCREASED BY:ACTIVITIES PAIN IS DECREASED BY:USE OF PAIN MEDICATIONS NURSING NOTE: -. PAIN CENTER INTAKE QUESTIONS: DO YOU HAVE A HISTORY OF MRSA? :NO DO YOU TAKE A BLOOD THINNERS? :NO DO YOU HAVE ANY BLEEDING DISORDERS? :NO ANY NEW NUMBNESS OR WEAKNESS IN YOUR LEGS OR ARMS? :NO ANY PACEMAKER,DEFIBRILLATOR, OR DORSAL COLUMN STIMULATOR? :NO DO YOU HAVE ANY RASHES OR OPEN SORES? :NO ARE YOU ALLERGIC TO IV DYE? :NO ARE YOU DIABETIC? :YES ANY NEW PROBLEMS WITH YOUR MEDICATIONS? :NO HAVE YOU RECEIVED A VACCINE IN THE PAST 30 DAYS? :NO DO YOU PLAN TO RECEIVE A VACCINE IN THE NEXT 21 DAYS? :NO DO YOU NEED ANY PRESCRIPTION? :NO DO YOU TAKE ANY IMMUNOSUPPRESSIVE MEDICATIONS? :NO IS THERE A CHANCE YOU COULD BE ? :NO ARE YOU BREAST FEEDING? :NO CURRENT MEDICATIONS TAKING PRAVASTATIN SODIUM 10 MG TABLET 1 TABLET ORALLY ONCE A DAY TAKING PREMARIN 0.625 MG TABLET 1 TABLET ORALLY DAILY TAKING METFORMIN HCL 500 MG TABLET 1 TABLET WITH MEALS ORALLY THREE TIMES A DAY TAKING DULOXETINE HCL 60 MG CAPSULE DELAYED RELEASE PARTICLES 1 CAPSULE ORALLY TWICE A DAY TAKING ALPRAZOLAM 0.5 MG TABLET 1 TABLET ORALLY FOUR TIMES DAILY NEEDED TAKING LATANOPROST 0.005 % SOLUTION 1 DROP INTO AFFECTED EYE IN THE EVENING OPHTHALMIC ONCE A DAY TAKING FLUTICASONE PROPIONATE HFA 44 MCG/ACT AEROSOL 1 PUFF INHALATION TWICE A DAY TAKING ALOGLIPTIN BENZOATE 25 MG TABLET 1 TABLET ORALLY ONCE A DAY TAKING MAY HAVE - - BEET ROOT ORALLY DAILY TAKING CALCIUM 600 MG TABLET 1 TABLET WITH MEALS ORALLY DAILY TAKING MAGNESIUM 250 MG TABLET 1 TABLET WITH A MEAL ORALLY ONCE A DAY TAKING VITAMIN D3 25 MCG (1000 UT) CAPSULE 1 CAPSULE ORALLY ONCE A DAY TAKING TR-C 1000-50 MG TABLET DIRECTED ORALLY TAKING CURCUMIN 95 500 MG CAPSULE ORALLY TAKING MOVANTIK 25 MG TABLET 1 TABLET IN THE MORNING ORALLY ONCE A DAY TAKING TIZANIDINE HCL 4 MG TABLET 1 TAB(S) ORALLY TWICE A DAY TAKING TRAZODONE HCL 150 MG TABLET 1 TABLET AT BEDTIME ORALLY ONCE A DAY TAKING NORCO 10-325 MG TABLET 1 ORALLY Q4-6H PRN MDD5 - SLOW WEAN OF MED TAKING METHOCARBAMOL 750 MG TABLET 1 TABLET ORALLY BID NOT-TAKING JANUVIA 100 MG TABLET 1 TABLET ORALLY ONCE A DAY NOT-TAKING MULTIVITAMINS - TABLET 1 TABLET ORALLY ONCE A DAY NOT-TAKING CINNAMON 500 MG CAPSULE 2 CAPS ORALLY BID NOT-TAKING DOCUSATE SODIUM 100 MG TABLET 1 TABLET NEEDED ORALLY ONCE A DAY MEDICATION LIST REVIEWED AND RECONCILED WITH THE PATIENT PAST MEDICAL HISTORY NIDDM DEPRESSION/ANXIETY CHRONIC PAIN KIDNEY STONE ALLERGIES LYRICA: SWELLING - ALLERGY DILAUDID: ITCH - ALLERGY OXYCODONE: ITCH - ALLERGY IV DYE: HIVES - ALLERGY LATEX (FOR ALLERGY USE ONLY): BLISTER - ALLERGY SURGICAL HISTORY TONSILECTOMY CTR R/L ULNAR NERVE TRANSPOSITION 3 BACK SURGERY GASTRIC BYPASS REMOVAL OF EXCESS SKIN FROM ABDOMEN CHOLECYSTECTOMY CYSTOSCOPY WITH LEFT STENT REMOVAL 11/2018 CYSTO, LEFT URETEROSCOPY WITH DAVIE LITHO, DOUBLE J STENT 11/2018 TOTAL HYSTRECTOMY 06/2019 FAMILY HISTORY FATHER: MOTHER: 7 BROTHER(S) , 6 SISTER(S) . 1 BROTHER . SOCIAL HISTORY GENERAL: TOBACCO USE ARE YOU A:NONSMOKER LATEX QUESTIONNAIRE LATEX ALLERGY : HAVE YOU EVER DEVELOPED ANY TYPE OF REACTION AFTER HANDLING LATEX PRODUCTS SUCH RUBBER GLOVES, CONDOMS, DIAPHRAGMS, BALLOONS, SOCKS, OR UNDERWEAR?YES - PLEASE INDICATE : SENSITIVITY TO BANDAIDS LATEX ALLERGY : HAVE YOU EVER DEVELOPED ANY TYPE OF REACTION DURING OR AFTER DENTAL APPOINTMENT, VAGINAL/RECTAL EXAMINATION, SURGICAL PROCEDURE, OR ANY OTHER EXPOSURE?NO LATEX RISK : HAVE YOU EVER HAD ANY DIFFICULTY BREATHING OR HIVES AFTER EATING OR HANDLING ANY FRUITS, OR VEGETABLES; SUCH KIWI, BANANAS, STONE FRUITS, OR CHESTNUTSNO LATEX RISK : DO YOU HAVE A PREVIOUS PERSONAL HISTORY OF MORE THAN NINE SURGERIES, SPINA BIFIDA, OR REPEATED CATHERIZATIONS? NO LATEX RISK : ARE YOU FREQUENTLY EXPOSED TO LATEX PRODUCTS IN YOUR OCCUPATION?NO DATE ASKED : 06/24/2020 ALCOHOL SCREENING DID YOU HAVE A DRINK CONTAINING ALCOHOL IN THE PAST YEAR?YES HOW OFTEN DID YOU HAVE A DRINK CONTAINING ALCOHOL IN THE PAST YEAR?MONTHLY OR LESS (1 POINT) POINTS1 INTERPRETATIONNEGATIVE RECREATIONAL DRUG USE DRUG USE?NO CAFFEINE CAFFEINE USE?YES ICE TEA ALL DAY SEXUAL HX HAD SEX IN THE LAST 12 MONTHS (VAGINAL, ORAL, OR ANAL)?NO HAVE YOU EVER HAD AN STD?NO [employer] [id number]U LANGUAGE LANGUAGES SPOKEN:CROATIAN LEARNING BARRIERS / SPECIAL NEEDS HEARING IMPAIRED?NO VISION IMPAIRED?YES COGNITIVELY IMPAIRED?NO :CORRECTIVE LENSES READINESS TO LEARN?YES OCCUPATION: DISABILITY. DIET: REGULAR. EXERCISE: DAILY. MARITAL STATUS: SINGLE. ALCOHOL TODAY'S VISIT 12/25/19 PATIENT DESCRIBES PAIN :ACHING, HAVE IT ALL THE TIME, THROBBING FROM 0-10, WHAT LEVEL IS YOUR PAIN TODAY?4 PRECIPITATING FACTORS ACTIVITY ALLEVIATING FACTORS LAYING DOWN IMPACT ON FUNCTION SOME DAYS PAIN CLINIC PFS, CLERGY, PUBLIC HEALTH REFERRALS HAS THE PATIENT BEEN EDUCATED REGARDING HIS/HER PLAN OF CARE?YES HAS THE PATIENT BEEN EDUCATED REGARDING PAIN, THE RISK FOR PAIN, THE IMPORTANCE OF EFFECTIVE PAIN MANAGEMENT, AND THE PAIN ASSESSMENT PROCESS?YES ADVANCE DIRECTIVE ADVANCE DIRECTIVE DISCUSSED WITH PATIENT:YES DECLINED HCP INFORMATION, STATES SHE HAS THE INFORMATION AT HOME. DECLINED ASSISTANCE IN FILLING OUT THE PAPERWORK. REVIEWED WITH PATIENT 12/16/18 1017 JSREVIEWED WITH PT 02/17/19 1146 BVREVIEWED WITH PT 04/29/19 1021 BVREVIEWED WITH PATIENT 05/15/19 1045 JSREVIEWED 09/01/2019 LAS. HOSPITALIZATION/MAJOR DIAGNOSTIC PROCEDURE KIDNEY STONES PANCREATITIS SURGER SURGERY REVIEW OF SYSTEMS CONSTITUTIONAL: ANY RECENT FEVER NO . CHILLS NO . WEIGHT CHANGE OF UNKNOWN REASONS NO . GASTROENTEROLOGY: NEW UNEXPLAINABLE CHANGES IN BOWEL CONTROL NO . CONSTIPATION NO . GENITOURINARY: ANY NEW CHANGE IN BLADDER CONTROL? NO . NEUROLOGY: NEW ONSET DIZZINESS OR NEUROLOGICAL CHANGES NOT MENTIONED NO . NEW NUMBNESS OR PAIN PATTERNS NOT MENTIONED AND PERTINENT TO TODAY'S VISIT NO . CARDIOLOGY: NEW CHEST PRESSURE NO . NEW CHEST PAIN NO . RESPIRATORY: UNEXPLAINABLE COUGH NO . NEW SHORTNESS OF BREATH NO . VITAL SIGNS WT 184.8 LBS, HT 65 IN, BMI 30.75 INDEX, BP 143/73 MM HG, HR 80 /MIN, RR 18 /MIN, TEMP 96.8 F, OXYGEN SAT % 98%, SAFE IN ENV? (Y/N) YES, NA INITIALS OK 11:25, REVIEWED BY: GLORIA. EXAMINATION GENERAL EXAMINATION: GENERALNO ACUTE DISTRESS, WELL NOURISHED AND HYDRATED. PSYCHAPPROPRIATE MOOD AND AFFECT . LUNGS:CLEAR TO AUSCULTATION BILATERALLY, NO WHEEZES, RHONCHI, RALES. HEART:NO MURMURS, REGULAR RATE AND RHYTHM. 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 GIVEN PRESENTING SYMPTOMS RECOMMENDED CONTINUATION OF CURRENT MEDICATION REGIMEN WITH FOLLOW-UP IN 3 MONTHS. PATIENT HAS EXPRESSED UNDERSTANDING OF AND WAS IN AGREEMENT WITH TREATMENT PLAN. GIVEN TIME TO ASK QUESTIONS AND EXPRESS CONCERNS. , ISTOP REGISTRY REVIEWED AND DEMONSTRATES COMPLLIANCE. (REF # ) BRINGS IN MEDICATIONS WHICH IS APPROPRIATE FOR WHAT WAS DISPENSED. RECENT URINE TOXICOLOGY REVIEWED. NO UNAUTHORIZED MEDICATIONS. NO ILLICIT SUBSTANCES AND PRESCRIBED MEDICATIONS WERE PRESENT. 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 IT IS NOT A COPY OF THE [employer] PROGRESS NOTE. MTDD
== END ==
LOC: M PAIN 11:15
PROVIDERS: ATTEND Family Medicine
DX: M96.1 Postlaminectomy syndrome, not elsewhere classified (principal); M51.24 Other intervertebral disc displacement, thoracic region; E11.9 Type 2 diabetes mellitus without complications; Z86.59 Personal history of other mental and behavioral disorders; Z98.84 Bariatric surgery status; Z88.5 Allergy status to narcotic agent; Z88.8 Allergy status to other drugs, medicaments and biological substances; Z91.040 Latex allergy status; Z91.041 Radiographic dye allergy status; Z79.84 Long term (current) use of oral hypoglycemic drugs; Z79.891 Long term (current) use of opiate analgesic; Z79.899 Other long term (current) drug therapy

== ENCOUNTER → 2020-09-23 | Outpatient (CLI) | payer OTHER ==
--- NOTE | 2020-09-24 07:34 | ECWPNPC ---
PATIENT NAME: ROBINA LESTER : 1960 GENDER: FEMALE VISIT DATE: 09/23/2020 DISCHARGE DATE: 09/23/20 1132 VISIT LOCKED DATE TIME: PHYSICIAN: AASHISH MANLEY RESOURCE: AASHISH MANLEY REASON FOR APPOINTMENT 1. BACK PAIN HISTORY OF PRESENT ILLNESS DEPRESSION SCREENING: PHQ-2 (2015 EDITION) LITTLE INTEREST OR PLEASURE IN DOING THINGS?NOT AT ALL FEELING DOWN, DEPRESSED, OR HOPELESS?SEVERAL DAYS TOTAL SCORE1 60-YEAR-OLD FEMALE IN FOR CHRONIC PAIN FOLLOW-UP. SHE RATES HER PAIN CURRENTLY AT A 3 OUT OF 10 AND DESCRIBES IT THROBBING. PATIENT FEELS HER MEDICATIONS ARE HELPFUL AND DENIES MED SIDE EFFECTS AT THIS TIME. GENERAL: -. FALL RISK SCREENING: SCREENING :TWO OR MORE FALLS WITHOUT INJURY IN THE PAST YEAR PAIN SCREENING: PATIENT HAS A COMPLAINT OF ACUTE OR CHRONIC PAIN :YES LOCATION OF PAIN:NECK, UPPER BACK, MID BACK, LOW BACK INTENSITY OF PAIN (SCALE OF 1 TO 10):3 WHAT DOES YOUR PAIN FEEL LIKE:THROBBING DURATION:CONSTANT, STEADY, ALL DAY, AWAKENS FROM SLEEP PAIN IS INCREASED BY:ACTIVITIES, PROLONGED STANDING SWEEPING, MOPPING, VACCUMING, PROLONGED SITTING PAIN IS DECREASED BY:OTHERS HEATING PAD NURSING NOTE: -. PAIN CENTER INTAKE QUESTIONS: DO YOU HAVE A HISTORY OF MRSA? :NO DO YOU TAKE A BLOOD THINNERS? :NO DO YOU HAVE ANY BLEEDING DISORDERS? :NO ANY NEW NUMBNESS OR WEAKNESS IN YOUR LEGS OR ARMS? :NO ANY PACEMAKER,DEFIBRILLATOR, OR DORSAL COLUMN STIMULATOR? :NO DO YOU HAVE ANY RASHES OR OPEN SORES? :NO ARE YOU ALLERGIC TO IV DYE? :YES HIVES ARE YOU DIABETIC? :YES ANY NEW PROBLEMS WITH YOUR MEDICATIONS? :NO HAVE YOU RECEIVED A VACCINE IN THE PAST 30 DAYS? :NO DO YOU PLAN TO RECEIVE A VACCINE IN THE NEXT 21 DAYS? :NO IF OFFERED COVID VACCINE DO YOU NEED ANY PRESCRIPTION? :YES METHOCARBAMOL, TIZANIDINE DO YOU TAKE ANY IMMUNOSUPPRESSIVE MEDICATIONS? :NO IS THERE A CHANCE YOU COULD BE ? :NO ARE YOU BREAST FEEDING? :NO CURRENT MEDICATIONS TAKING PRAVASTATIN SODIUM 10 MG TABLET 1 TABLET ORALLY ONCE A DAY TAKING METFORMIN HCL 500 MG TABLET 1 TABLET WITH MEALS ORALLY THREE TIMES A DAY TAKING DULOXETINE HCL 60 MG CAPSULE DELAYED RELEASE PARTICLES 1 CAPSULE ORALLY TWICE A DAY TAKING ALPRAZOLAM 0.5 MG TABLET 1 TABLET ORALLY THREE TIMES DAILY NEEDED TAKING LATANOPROST 0.005 % SOLUTION 1 DROP INTO AFFECTED EYE IN THE EVENING OPHTHALMIC ONCE A DAY TAKING FLUTICASONE PROPIONATE HFA 44 MCG/ACT AEROSOL 1 PUFF INHALATION TWICE A DAY TAKING ALOGLIPTIN BENZOATE 25 MG TABLET 1 TABLET ORALLY ONCE A DAY TAKING CALCIUM 600 MG TABLET 1 TABLET WITH MEALS ORALLY DAILY TAKING MAGNESIUM 400 MG CAPSULE 1 TABLET WITH A MEAL ORALLY ONCE A DAY TAKING VITAMIN D3 25 MCG (1000 UT) CAPSULE 1 CAPSULE ORALLY ONCE A DAY TAKING TR-C 1000-50 MG TABLET DIRECTED ORALLY TAKING CURCUMIN 95 500 MG CAPSULE ORALLY TAKING TIZANIDINE HCL 4 MG TABLET 1 TAB(S) ORALLY TWICE A DAY TAKING TRAZODONE HCL 150 MG TABLET 1 TABLET AT BEDTIME ORALLY ONCE A DAY TAKING METHOCARBAMOL 750 MG TABLET 1 TABLET ORALLY BID TAKING NORCO 10-325 MG TABLET 1 ORALLY Q4-6H PRN MDD5 - SLOW WEAN OF MED TAKING ASPIRIN 81 MG TABLET CHEWABLE 1 TABLET ORALLY ONCE A DAY TAKING B-12 1000 MCG TABLET SUBLINGUAL 1 TABLET UNDER THE TONGUE AND ALLOW TO DISSOLVE SUBLINGUAL ONCE A DAY NOT-TAKING PREMARIN 0.625 MG TABLET 1 TABLET ORALLY DAILY NOT-TAKING MAY HAVE - - BEET ROOT ORALLY DAILY NOT-TAKING MOVANTIK 25 MG TABLET 1 TABLET IN THE MORNING ORALLY ONCE A DAY NOT-TAKING JANUVIA 100 MG TABLET 1 TABLET ORALLY ONCE A DAY NOT-TAKING MULTIVITAMINS - TABLET 1 TABLET ORALLY ONCE A DAY NOT-TAKING CINNAMON 500 MG CAPSULE 2 CAPS ORALLY BID NOT-TAKING DOCUSATE SODIUM 100 MG TABLET 1 TABLET NEEDED ORALLY ONCE A DAY MEDICATION LIST REVIEWED AND RECONCILED WITH THE PATIENT PAST MEDICAL HISTORY NIDDM DEPRESSION/ANXIETY CHRONIC PAIN KIDNEY STONE ALLERGIES LYRICA: SWELLING - ALLERGY DILAUDID: ITCH - ALLERGY OXYCODONE: ITCH - ALLERGY IV DYE: HIVES - ALLERGY LATEX (FOR ALLERGY USE ONLY): BLISTER - ALLERGY SOCIAL HISTORY GENERAL: TOBACCO USE ARE YOU A:NONSMOKER LATEX QUESTIONNAIRE LATEX ALLERGY : HAVE YOU EVER DEVELOPED ANY TYPE OF REACTION AFTER HANDLING LATEX PRODUCTS SUCH RUBBER GLOVES, CONDOMS, DIAPHRAGMS, BALLOONS, SOCKS, OR UNDERWEAR?YES - PLEASE INDICATE : SENSITIVITY TO BANDAIDS LATEX ALLERGY : HAVE YOU EVER DEVELOPED ANY TYPE OF REACTION DURING OR AFTER DENTAL APPOINTMENT, VAGINAL/RECTAL EXAMINATION, SURGICAL PROCEDURE, OR ANY OTHER EXPOSURE?NO LATEX RISK : HAVE YOU EVER HAD ANY DIFFICULTY BREATHING OR HIVES AFTER EATING OR HANDLING ANY FRUITS, OR VEGETABLES; SUCH KIWI, BANANAS, STONE FRUITS, OR CHESTNUTSNO LATEX RISK : DO YOU HAVE A PREVIOUS PERSONAL HISTORY OF MORE THAN NINE SURGERIES, SPINA BIFIDA, OR REPEATED CATHERIZATIONS? NO LATEX RISK : ARE YOU FREQUENTLY EXPOSED TO LATEX PRODUCTS IN YOUR OCCUPATION?NO DATE ASKED : 09/23/2020 ALCOHOL USE: YES. ALCOHOL SCREENING DID YOU HAVE A DRINK CONTAINING ALCOHOL IN THE PAST YEAR?YES HOW OFTEN DID YOU HAVE A DRINK CONTAINING ALCOHOL IN THE PAST YEAR?MONTHLY OR LESS (1 POINT) POINTS1 INTERPRETATIONNEGATIVE RECREATIONAL DRUG USE DRUG USE?NO CAFFEINE CAFFEINE USE?YES ICE TEA ALL DAY SEXUAL HX HAD SEX IN THE LAST 12 MONTHS (VAGINAL, ORAL, OR ANAL)?NO HAVE YOU EVER HAD AN STD?NO ANGLICAN [id number] GNOSTICISM LANGUAGE LANGUAGES SPOKEN:TAJIK LEARNING BARRIERS / SPECIAL NEEDS CHANGE FROM LAST VISIT?NO BARRIERS TO LEARNING?NO HEARING IMPAIRED?NO VISION IMPAIRED?YES :CORRECTIVE LENSES COGNITIVELY IMPAIRED?NO READINESS TO LEARN?YES LEARNING PREFERENCES?NO LEARNING CAPABILITIES PRESENT?YES EMOTIONAL BARRIERS?NO SPECIAL DEVICES?NO 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 DIET: REGULAR. EXERCISE: DAILY. MARITAL STATUS: SINGLE. TODAY'S VISIT 12/25/19 PATIENT DESCRIBES PAIN :ACHING, HAVE IT ALL THE TIME, THROBBING FROM 0-10, WHAT LEVEL IS YOUR PAIN TODAY?4 PRECIPITATING FACTORS ACTIVITY ALLEVIATING FACTORS LAYING DOWN IMPACT ON FUNCTION SOME DAYS REVIEWED WITH PATIENT 12/16/18 1017 JSREVIEWED WITH PT 02/17/19 1146 BVREVIEWED WITH PT 04/29/19 1021 BVREVIEWED WITH PATIENT 05/15/19 1045 JSREVIEWED 09/01/2019 LAS. REVIEW OF SYSTEMS CONSTITUTIONAL: ANY RECENT FEVER NO . CHILLS NO . WEIGHT CHANGE OF UNKNOWN REASONS NO . GASTROENTEROLOGY: NEW UNEXPLAINABLE CHANGES IN BOWEL CONTROL NO . CONSTIPATION NO . GENITOURINARY: ANY NEW CHANGE IN BLADDER CONTROL? NO . NEUROLOGY: NEW ONSET DIZZINESS OR NEUROLOGICAL CHANGES NOT MENTIONED NO . NEW NUMBNESS OR PAIN PATTERNS NOT MENTIONED AND PERTINENT TO TODAY'S VISIT NO . CARDIOLOGY: NEW CHEST PRESSURE NO . NEW CHEST PAIN NO . RESPIRATORY: UNEXPLAINABLE COUGH NO . NEW SHORTNESS OF BREATH NO . VITAL SIGNS WT 190.4 LBS, HT 65 IN, BMI 31.68 INDEX, BP 158/77 MM HG, HR 84 /MIN, RR 18 /MIN, TEMP 97.8 F, OXYGEN SAT % 97, SAFE IN ENV? (Y/N) YES, REVIEWED BY: [facility]. [facility] RN. EXAMINATION GENERAL EXAMINATION: GENERALNO ACUTE DISTRESS, WELL NOURISHED AND HYDRATED. PSYCHAPPROPRIATE MOOD AND AFFECT . LUNGS:CLEAR TO AUSCULTATION BILATERALLY, NO WHEEZES, RHONCHI, RALES. HEART:NO MURMURS, REGULAR RATE AND RHYTHM. ASSESSMENTS LUMBAR POST-LAMINECTOMY SYNDROME - M96.1 (PRIMARY), RISK: (NULL) TREATMENT LUMBAR POST-LAMINECTOMY SYNDROME REFILL TIZANIDINE HCL TABLET, 4 MG, 1 TAB(S), ORALLY, TWICE A DAY, 30 DAYS, 60, REFILLS 2 CONTINUE METHOCARBAMOL TABLET, 750 MG, 1 TABLET, ORALLY, BID, 30 DAYS, 60 TABLET REFILL NORCO TABLET, 10-325 MG, 1, ORALLY, Q4-6H PRN MDD5 - SLOW WEAN OF MED, 30 DAYS, 150 NOTES: 60-YEAR-OLD FEMALE IN FOR CHRONIC PAIN FOLLOW-UP. GIVEN PRESENTING SYMPTOMS RECOMMENDED CONTINUATION OF CURRENT MEDICATION REGIMEN WITH FOLLOW-UP IN 3 MONTHS. PATIENT HAS EXPRESSED UNDERSTANDING OF AND WAS IN AGREEMENT WITH TREATMENT PLAN. GIVEN TIME TO ASK QUESTIONS AND EXPRESS CONCERNS. , ISTOP REGISTRY REVIEWED AND DEMONSTRATES COMPLLIANCE. (REF # [id number] ) BRINGS IN MEDICATIONS WHICH IS APPROPRIATE FOR WHAT WAS DISPENSED. RECENT URINE TOXICOLOGY REVIEWED. NO UNAUTHORIZED MEDICATIONS. NO ILLICIT SUBSTANCES AND PRESCRIBED MEDICATIONS WERE PRESENT. PROCEDURE CODES FA211 ESTABILISHED PATIENT [facility] CHARGE DISPOSITION & COMMUNICATION FOLLOW UP 3 MONTHS (REASON: BACK PAIN) ELECTRONICALLY SIGNED BY TAVON BUTTS ON 09/23/2020 AT 11:45 AM EST DISCLAIMER : THIS IS A VISIT SUMMARY EXTRACTED FROM THE [employer] CHART. IT IS NOT A COPY OF THE [employer] PROGRESS NOTE. DOUGLAS
== END ==
LOC: M PAIN 11:00
PROVIDERS: ATTEND Family Medicine
DX: M96.1 Postlaminectomy syndrome, not elsewhere classified (principal); E11.9 Type 2 diabetes mellitus without complications; F32.9 Major depressive disorder, single episode, unspecified; F41.9 Anxiety disorder, unspecified; Z79.891 Long term (current) use of opiate analgesic; Z79.82 Long term (current) use of aspirin; Z79.899 Other long term (current) drug therapy; Z79.84 Long term (current) use of oral hypoglycemic drugs; Z88.5 Allergy status to narcotic agent; Z88.8 Allergy status to other drugs, medicaments and biological substances; Z91.040 Latex allergy status; Z91.041 Radiographic dye allergy status

== ENCOUNTER → 2021-03-29 | Outpatient (CLI) | payer OTHER ==
[~2021-03-29] MED LIST changes: +METH-1165 PO; -METH750T2 PO
--- NOTE | 2021-03-30 23:57 | ECWPNPC ---
PATIENT NAME: ROBINA LESTER : 1960 GENDER: FEMALE VISIT DATE: 03/29/2021 DISCHARGE DATE: 03/29/21 1114 VISIT LOCKED DATE TIME: PHYSICIAN: AASHISH MANLEY RESOURCE: AASHISH MANLEY REASON FOR APPOINTMENT 1. BACK PAIN HISTORY OF PRESENT ILLNESS GENERAL: HPI 61-YEAR-OLD FEMALE IN FOR CHRONIC PAIN FOLLOW-UP. PATIENT FEELS HER MEDICATIONS ARE HELPFUL AND DENIES MED SIDE EFFECTS AT THIS TIME. SHE RATES HER PAIN CURRENTLY AT A 4-10 AND DESCRIBES IT ACHING AND CONTINUOUS.. -. FALL RISK SCREENING: SCREENING TWO FALLS REPORTED IN THE LAST YEAR WITHOUT INJURY. PAIN SCREENING: PATIENT HAS A COMPLAINT OF ACUTE OR CHRONIC PAIN :YES LOCATION OF PAIN:NECK, UPPER BACK, MID BACK, LOW BACK INTENSITY OF PAIN (SCALE OF 1 TO 10):4 WHAT DOES YOUR PAIN FEEL LIKE:ACHING, CONTINOUS DURATION:CONTINOUS, CONSTANT, AWAKENS FROM SLEEP PAIN IS INCREASED BY:ACTIVITIES, PROLONGED STANDING PAIN IS DECREASED BY:USE OF PAIN MEDICATIONS, SITTING NURSING NOTE: -. PAIN CENTER INTAKE QUESTIONS: DO YOU HAVE A HISTORY OF MRSA? :NO DO YOU TAKE A BLOOD THINNERS? :NO BABY ASPIRIN DO YOU HAVE ANY BLEEDING DISORDERS? :NO ANY NEW NUMBNESS OR WEAKNESS IN YOUR LEGS OR ARMS? :NO ANY PACEMAKER,DEFIBRILLATOR, OR DORSAL COLUMN STIMULATOR? :NO DO YOU HAVE ANY RASHES OR OPEN SORES? :NO ARE YOU ALLERGIC TO IV DYE? :YES HIVES ARE YOU DIABETIC? :YES TYPE II ANY NEW PROBLEMS WITH YOUR MEDICATIONS? :NO HAVE YOU RECEIVED A VACCINE IN THE PAST 30 DAYS? :NO SECOND COVID VACCINATION 12/17/2020 DO YOU PLAN TO RECEIVE A VACCINE IN THE NEXT 21 DAYS? :NO DO YOU NEED ANY PRESCRIPTION? :YES HYDROCODONE-ACETAMINOPHEN DO YOU TAKE ANY IMMUNOSUPPRESSIVE MEDICATIONS? :NO IS THERE A CHANCE YOU COULD BE ? :NO ARE YOU BREAST FEEDING? :NO CURRENT MEDICATIONS TAKING PRAVASTATIN SODIUM 10 MG TABLET 1 TABLET ORALLY ONCE A DAY TAKING METFORMIN HCL 500 MG TABLET 1 TABLET WITH MEALS ORALLY THREE TIMES A DAY TAKING DULOXETINE HCL 60 MG CAPSULE DELAYED RELEASE PARTICLES 1 CAPSULE ORALLY TWICE A DAY TAKING ALPRAZOLAM 0.5 MG TABLET 1 TABLET ORALLY THREE TIMES DAILY NEEDED TAKING LATANOPROST 0.005 % SOLUTION 1 DROP INTO AFFECTED EYE IN THE EVENING OPHTHALMIC ONCE A DAY TAKING FLUTICASONE PROPIONATE HFA 44 MCG/ACT AEROSOL 1 PUFF INHALATION TWICE A DAY TAKING ALOGLIPTIN BENZOATE 25 MG TABLET 1 TABLET ORALLY ONCE A DAY TAKING CALCIUM 600 MG TABLET 1 TABLET WITH MEALS ORALLY DAILY TAKING MAGNESIUM 400 MG CAPSULE 1 TABLET WITH A MEAL ORALLY ONCE A DAY TAKING VITAMIN D3 25 MCG (1000 UT) CAPSULE 1 CAPSULE ORALLY ONCE A DAY TAKING TR-C 1000-50 MG TABLET DIRECTED ORALLY TAKING CURCUMIN 95 500 MG CAPSULE ORALLY TAKING ASPIRIN 81 MG TABLET CHEWABLE 1 TABLET ORALLY ONCE A DAY TAKING B-12 1000 MCG TABLET SUBLINGUAL 1 TABLET UNDER THE TONGUE AND ALLOW TO DISSOLVE SUBLINGUAL ONCE A DAY TAKING TIZANIDINE HCL 4 MG TABLET 1 TAB(S) ORALLY TWICE A DAY TAKING TRAZODONE HCL 150 MG TABLET 1 TABLET AT BEDTIME ORALLY ONCE A DAY TAKING HYDROCODONE-ACETAMINOPHEN 10-325 MG TABLET 1 TABLET ORALLY Q4-6H PRN MDD5 - SLOW WEAN OF MED TAKING METHOCARBAMOL 750 MG TABLET 1 TABLET ORALLY BID NOT-TAKING PREMARIN 0.625 MG TABLET 1 TABLET ORALLY DAILY NOT-TAKING MAY HAVE - - BEET ROOT ORALLY DAILY NOT-TAKING MOVANTIK 25 MG TABLET 1 TABLET IN THE MORNING ORALLY ONCE A DAY NOT-TAKING JANUVIA 100 MG TABLET 1 TABLET ORALLY ONCE A DAY NOT-TAKING MULTIVITAMINS - TABLET 1 TABLET ORALLY ONCE A DAY NOT-TAKING CINNAMON 500 MG CAPSULE 2 CAPS ORALLY BID NOT-TAKING DOCUSATE SODIUM 100 MG TABLET 1 TABLET NEEDED ORALLY ONCE A DAY MEDICATION LIST REVIEWED AND RECONCILED WITH THE PATIENT PAST MEDICAL HISTORY NIDDM DEPRESSION/ANXIETY CHRONIC PAIN KIDNEY STONE ALLERGIES LYRICA: SWELLING - ALLERGY DILAUDID: ITCH - ALLERGY OXYCODONE: ITCH - ALLERGY IV DYE: HIVES - ALLERGY LATEX (FOR ALLERGY USE ONLY): BLISTER - ALLERGY SOCIAL HISTORY GENERAL: TOBACCO USE ARE YOU A:NONSMOKER LATEX QUESTIONNAIRE LATEX ALLERGY : HAVE YOU EVER DEVELOPED ANY TYPE OF REACTION AFTER HANDLING LATEX PRODUCTS SUCH RUBBER GLOVES, CONDOMS, DIAPHRAGMS, BALLOONS, SOCKS, OR UNDERWEAR?YES - PLEASE INDICATE : SENSITIVITY TO BANDAIDS LATEX ALLERGY : HAVE YOU EVER DEVELOPED ANY TYPE OF REACTION DURING OR AFTER DENTAL APPOINTMENT, VAGINAL/RECTAL EXAMINATION, SURGICAL PROCEDURE, OR ANY OTHER EXPOSURE?NO LATEX RISK : HAVE YOU EVER HAD ANY DIFFICULTY BREATHING OR HIVES AFTER EATING OR HANDLING ANY FRUITS, OR VEGETABLES; SUCH KIWI, BANANAS, STONE FRUITS, OR CHESTNUTSNO LATEX RISK : DO YOU HAVE A PREVIOUS PERSONAL HISTORY OF MORE THAN NINE SURGERIES, SPINA BIFIDA, OR REPEATED CATHERIZATIONS? NO LATEX RISK : ARE YOU FREQUENTLY EXPOSED TO LATEX PRODUCTS IN YOUR OCCUPATION?NO DATE ASKED : 03/29/2021 ALCOHOL USE: YES. OCCASIONAL. ALCOHOL SCREENING DID YOU HAVE A DRINK CONTAINING ALCOHOL IN THE PAST YEAR?YES HOW OFTEN DID YOU HAVE A DRINK CONTAINING ALCOHOL IN THE PAST YEAR?MONTHLY OR LESS (1 POINT) POINTS1 INTERPRETATIONNEGATIVE RECREATIONAL DRUG USE DRUG USE?NO CAFFEINE CAFFEINE USE?YES ICE TEA ALL DAY SEXUAL HX HAD SEX IN THE LAST 12 MONTHS (VAGINAL, ORAL, OR ANAL)?NO HAVE YOU EVER HAD AN STD?NO MANDAEISM [id number] GNOSTICIST LANGUAGE LANGUAGES SPOKEN:BARBADIAN LEARNING BARRIERS / SPECIAL NEEDS CHANGE FROM LAST VISIT?NO BARRIERS TO LEARNING?NO HEARING IMPAIRED?NO VISION IMPAIRED?YES :CORRECTIVE LENSES COGNITIVELY IMPAIRED?NO READINESS TO LEARN?YES LEARNING PREFERENCES?NO LEARNING CAPABILITIES PRESENT?YES EMOTIONAL BARRIERS?NO SPECIAL DEVICES?NO 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 DIET: REGULAR. EXERCISE: DAILY. MARITAL STATUS: SINGLE. TODAY'S VISIT 12/25/19 PATIENT DESCRIBES PAIN :ACHING, HAVE IT ALL THE TIME, THROBBING FROM 0-10, WHAT LEVEL IS YOUR PAIN TODAY?4 PRECIPITATING FACTORS ACTIVITY ALLEVIATING FACTORS LAYING DOWN IMPACT ON FUNCTION SOME DAYS REVIEWED WITH PATIENT 12/16/18 1017 JSREVIEWED WITH PT 02/17/19 1146 BVREVIEWED WITH PT 04/29/19 1021 BVREVIEWED WITH PATIENT 05/15/19 1045 JSREVIEWED 09/01/2019 LAS. REVIEW OF SYSTEMS CONSTITUTIONAL: ANY RECENT FEVER NO . CHILLS NO . WEIGHT CHANGE OF UNKNOWN REASONS NO . GASTROENTEROLOGY: NEW UNEXPLAINABLE CHANGES IN BOWEL CONTROL NO . CONSTIPATION NO . GENITOURINARY: ANY NEW CHANGE IN BLADDER CONTROL? NO . NEUROLOGY: NEW ONSET DIZZINESS OR NEUROLOGICAL CHANGES NOT MENTIONED NO . NEW NUMBNESS OR PAIN PATTERNS NOT MENTIONED AND PERTINENT TO TODAY'S VISIT NO . CARDIOLOGY: NEW CHEST PRESSURE NO . PATIENT DENIES NO . RESPIRATORY: UNEXPLAINABLE COUGH NO . NEW SHORTNESS OF BREATH NO . VITAL SIGNS WT 178.0 LBS, WT-KG 80.74 KG, HT 65 IN, BMI 29.62 INDEX, BP 134/65 MM HG, HR 86 /MIN, RR 18 /MIN, TEMP 97.6 F, OXYGEN SAT % 100%, SAFE IN ENV? (Y/N) YES, NA INITIALS AW 1057, REVIEWED BY: ROSS SACNHEZ MA. EXAMINATION GENERAL EXAMINATION: GENERALNO ACUTE DISTRESS, WELL NOURISHED AND HYDRATED. PSYCHAPPROPRIATE MOOD AND AFFECT . LUNGS:CLEAR TO AUSCULTATION BILATERALLY, NO WHEEZES, RHONCHI, RALES. HEART:NO MURMURS, REGULAR RATE AND RHYTHM. ASSESSMENTS LUMBAR POST-LAMINECTOMY SYNDROME - M96.1 (PRIMARY) TREATMENT LUMBAR POST-LAMINECTOMY SYNDROME NOTES: 61-YEAR-OLD FEMALE IN FOR CHRONIC PAIN FOLLOW-UP. GIVEN PRESENTING SYMPTOMS RECOMMEND CONTINUATION OF CURRENT MEDICATION REGIMEN WITH FOLLOW-UP IN 3 MONTHS. PATIENT HAS EXPRESSED UNDERSTANDING OF AND WAS IN AGREEMENT WITH TREATMENT PLAN. GIVEN TIME TO ASK QUESTIONS AND EXPRESS CONCERNS. ISTOP REGISTRY REVIEWED AND DEMONSTRATES COMPLLIANCE. (REF #[id number] ) BRINGS IN MEDICATIONS WHICH IS APPROPRIATE FOR WHAT WAS DISPENSED. RECENT URINE TOXICOLOGY REVIEWED. NO UNAUTHORIZED MEDICATIONS. NO ILLICIT SUBSTANCES AND PRESCRIBED MEDICATIONS WERE PRESENT. OTHERS REFILL HYDROCODONE-ACETAMINOPHEN TABLET, 10-325 MG, 1 TABLET, ORALLY, Q4-6H PRN MDD5 - SLOW WEAN OF MED, 30 DAYS, 150, REFILLS 0 PROCEDURE CODES FA211 ESTABILISHED PATIENT [facility] CHARGE DISPOSITION & COMMUNICATION FOLLOW UP 3 MONTHS (REASON: BACK PAIN ) ELECTRONICALLY SIGNED BY TAVON BUTTS ON 03/30/2021 AT 09:48 AM EDT DISCLAIMER : THIS IS A VISIT SUMMARY EXTRACTED FROM THE [employer] CHART. IT IS NOT A COPY OF THE [employer] PROGRESS NOTE. DOUGLAS
== END ==
LOC: M PAIN 10:45
PROVIDERS: ATTEND Family Medicine
DX: M96.1 Postlaminectomy syndrome, not elsewhere classified (principal); E11.9 Type 2 diabetes mellitus without complications; F32.9 Major depressive disorder, single episode, unspecified; F41.9 Anxiety disorder, unspecified; G89.29 Other chronic pain; Z79.82 Long term (current) use of aspirin; Z79.84 Long term (current) use of oral hypoglycemic drugs; Z79.899 Other long term (current) drug therapy; Z79.891 Long term (current) use of opiate analgesic; Z88.5 Allergy status to narcotic agent; Z88.8 Allergy status to other drugs, medicaments and biological substances; Z91.040 Latex allergy status

== ENCOUNTER → 2021-07-29 | Outpatient (CLI) | payer OTHER | LOC: M PAIN 10:45 | PROVIDERS: ATTEND Anesthesiology | DX: G89.29 Other chronic pain (principal); M96.1 Postlaminectomy syndrome, not elsewhere classified; E11.9 Type 2 diabetes mellitus without complications; F32.A Depression, unspecified; F41.9 Anxiety disorder, unspecified; Z79.891 Long term (current) use of opiate analgesic; Z79.84 Long term (current) use of oral hypoglycemic drugs; Z79.899 Other long term (current) drug therapy; Z88.5 Allergy status to narcotic agent; Z91.040 Latex allergy status; Z91.041 Radiographic dye allergy status ==

== ENCOUNTER → 2021-10-21 | Outpatient (CLI) | payer OTHER ==
[~2021-10-21] MED LIST changes: +ALOG25TA PO; +BEET ROOT PO; +CALC600T60 PO; +D 101000 PO; +FERR325T3 PO; +RA T500C2 PO; +TIZA10TA PO; -TIZA4TAB4 PO; +VITA-243 PO
== END ==
LOC: M PAIN 11:15
PROVIDERS: ATTEND Anesthesiology
DX: M96.1 Postlaminectomy syndrome, not elsewhere classified (principal); E11.9 Type 2 diabetes mellitus without complications; F32.A Depression, unspecified; F41.9 Anxiety disorder, unspecified; G89.29 Other chronic pain; E61.1 Iron deficiency; Z79.84 Long term (current) use of oral hypoglycemic drugs; Z79.891 Long term (current) use of opiate analgesic; Z79.899 Other long term (current) drug therapy; Z88.5 Allergy status to narcotic agent; Z88.8 Allergy status to other drugs, medicaments and biological substances; Z91.040 Latex allergy status

== ENCOUNTER → 2021-10-26 | Outpatient (CLI) | payer OTHER | LOC: M LABSMTC 11:07 | PROVIDERS: ATTEND Anesthesiology | DX: Z01.818 Encounter for other preprocedural examination (principal); Z11.52 Encounter for screening for COVID-19 ==

== ENCOUNTER 2021-10-31 06:45 | Day surgery (SDC) | payer OTHER ==
[~2021-10-31] VITALS: Ht 167.6 cm; Wt 83.1 kg
[~2021-10-31 06:45] MED LIST changes: +LIDOCAINE 2% 100MG/5ML SDV (FOR ANES.) As Ordered ONE; +NS 1,000 ML IV ONE; +fentaNYL 100 MCG/2 ML INJECTION As Ordered ONE; +propofoL 500 MG/50 ML VIAL As Ordered ONE
[2021-10-31 08:29] VITALS: BP 140/65
== END 2021-10-31 08:43 | disposition home or self-care (01) ==
LOC: M OPP 06:45
PROVIDERS: ATTEND Internal Medicine Gastroenterology
DX: D50.9 Iron deficiency anemia, unspecified (principal); R10.9 Unspecified abdominal pain; K57.30 Diverticulosis of large intestine without perforation or abscess without bleeding; K64.8 Other hemorrhoids; D13.1 Benign neoplasm of stomach; Z98.84 Bariatric surgery status; E11.40 Type 2 diabetes mellitus with diabetic neuropathy, unspecified; M10.9 Gout, unspecified; M19.90 Unspecified osteoarthritis, unspecified site; F41.9 Anxiety disorder, unspecified; F32.A Depression, unspecified; Z87.891 Personal history of nicotine dependence; Z88.3 Allergy status to other anti-infective agents; Z88.5 Allergy status to narcotic agent; Z88.8 Allergy status to other drugs, medicaments and biological substances; Z91.041 Radiographic dye allergy status; Z91.09 Other allergy status, other than to drugs and biological substances; Z79.84 Long term (current) use of oral hypoglycemic drugs; Z79.899 Other long term (current) drug therapy; Z80.8 Family history of malignant neoplasm of other organs or systems
CPT/HCPCS: 43239; 45378; 88305; J3010

== ENCOUNTER → 2021-11-29 | Outpatient (CLI) | payer OTHER ==
[~2021-11-29] MED LIST changes: -LIDOCAINE 2% 100MG/5ML SDV (FOR ANES.) As Ordered ONE; -NS 1,000 ML IV ONE; -fentaNYL 100 MCG/2 ML INJECTION As Ordered ONE; -propofoL 500 MG/50 ML VIAL As Ordered ONE
== END ==
LOC: M PLAIMG 12:26
PROVIDERS: ATTEND Anesthesiology
DX: M96.1 Postlaminectomy syndrome, not elsewhere classified (principal)

== ENCOUNTER → 2022-02-06 | Outpatient (CLI) | payer OTHER | LOC: M PAIN 11:15 | PROVIDERS: ATTEND Nurse Practitioner Family | DX: M96.1 Postlaminectomy syndrome, not elsewhere classified (principal); M47.816 Spondylosis without myelopathy or radiculopathy, lumbar region; M47.814 Spondylosis without myelopathy or radiculopathy, thoracic region; M54.2 Cervicalgia; E11.9 Type 2 diabetes mellitus without complications; F32.A Depression, unspecified; F41.9 Anxiety disorder, unspecified; G89.29 Other chronic pain; E61.1 Iron deficiency; Z79.84 Long term (current) use of oral hypoglycemic drugs; Z79.899 Other long term (current) drug therapy; Z79.891 Long term (current) use of opiate analgesic; Z88.5 Allergy status to narcotic agent; Z88.8 Allergy status to other drugs, medicaments and biological substances; Z91.040 Latex allergy status ==

== ENCOUNTER → 2022-03-06 | Outpatient (REF) | LOC: M LAB LCGH 17:18 ==